=== PATIENT | male | born 1965 | race Caucasian/White ===

== ENCOUNTER 2017-07-26 06:36 | Inpatient (IN) | payer BC ==
[~2017-07-26 06:36] MED LIST: Acetaminophen 500 MG Tab PO SCH; Clindamycin Phosphate in D5W 900 MG in Premix Bag 1 BAG IV SCH; Famotidine 20 MG/2 ML SDV IVPUSH SCH; Ketorolac 30 MG/ML SDV IVPUSH SCH; Ropivacaine 49.25 ML, Ketorolac 30 MG, EPINEPHrine 0.5 MG, cloNIDine 80 MCG in Sodium C... INJECT ONE; Scopolamine 1.5 MG Transdermal Patch TRDERM SCH; oxyCODONE ER 20 MG TAB.ER PO SCH
[2017-07-26] MEDS: Lactated Ringers 1,000 ML IV SCH ×2 (07:15→17:57)
[2017-07-26] MEDS ORDERED: Midazolam 1 MG/ML 2 ML SDV ONE ×2 (07:38→08:08)
[2017-07-26] MEDS ORDERED: fentaNYL 100 MCG/2 ML SDV ONE (07:38)
--- NOTE | 2017-07-26 08:09 | PCM.PREANE ---
Preanesthetic Assessment - Anesthesia/Transfusion/Family Hx Anesthesia History: Prior Anesthesia Without Reaction Other Type of Anesthesia Reaction Comment: DENIES ANY PROBLEMS WITH ANESTHESIA Family History of Anesthesia Reaction: No Transfusion History: No Prior Transfusion(s) Additional History: Sleep apnea - uses face mask; 2-3x per week short episodes of rapid heart rate. - Review of Systems General: Other (pain with any walking activity; obesity) Pulmonary: Other (sleep apnea/CPAP/ brought own unit) Cardiovascular: Palpitations (see earlier note) Gastrointestinal: Other (GERD - using omeprazole daily) Neurological: Gait Disturbance (due to knee pain) Other: Reports: None - Physical Assessment NPO Status Date: 07/25/17 NPO Status Time: 23:00 O2 Sat by Pulse Oximetry: 97 Respiratory Rate: 16 Temperature: 98.1 F Vital Signs: Last Vital Signs Temp 98.1 F 07/26/17 07:31 Pulse 70 07/26/17 07:10 Resp 16 07/26/17 07:10 BP 146/79 H 07/26/17 07:10 Pulse Ox 97 07/26/17 07:10 Height: 6 ft Weight: 316 lb ASA Class: 3 Mental Status: Alert & Oriented x3 Thyro-Mental Finger Breadths: 3 Mouth Opening Finger Breadths: 3 ROM/Head Extension: Full Lungs: Clear to Auscultation, Normal Respiratory Effort Cardiovascular: Regular Rate, Regular Rhythm, No Murmurs - Lab Values: Laboratory Last Values Blood Type A POSITIVE 07/26/17 07:13 Antibody Screen NEGATIVE 07/26/17 07:13 - Allergies Allergies/Adverse Reactions: Allergies Allergy/AdvReac Type Severity Reaction Status Date / Time amoxicillin [From Augmentin] Allergy Diarrhea Verified 07/20/17 10:02 clavulanic acid Allergy Diarrhea Verified 07/20/17 10:02 [From Augmentin] - Blood Blood Available: Yes Product(s) Available: PRBC (T and S) - Anesthesia Plan Beta Ariadna: Metoprolol Med Last Dose Date: 07/26/17 Med Last Dose Time: 06:00 - Acknowledgements Anesthesia Type Planned: General Anesthesia (Possible due to cardio/respiratory issues), Spinal (may require airway assist due to his sleep apnea hx) Pt an Appropriate Candidate for the Planned Anesthesia: Yes Alternatives and Risks of Anesthesia Discussed w Pt/Guardian: Yes Pt/Guardian Understands and Agrees with Anesthesia Plan: Yes PreAnesthesia Questionnaire HEENT History: Reports: Allergic Rhinitis, Other (See Below) Other HEENT History: wears glasses Cardiovascular History: Reports: High Cholesterol, Hypertension Respiratory History: Reports: Sleep Apnea Other Respiratory History: uses CPAP Gastrointestinal History: Reports: GERD Genitourinary History: Reports: None Musculoskeletal History: Reports: Arthritis Neurological History: Reports: None Psychiatric History: Reports: None Endocrine/Metabolic History: Reports: Obesity/BMI 30+ Hematologic History: Reports: None Immunologic History: Reports: None Oncologic (Cancer) History: Reports: None Dermatologic History: Reports: None - Infectious Disease History Infectious Disease History: Reports: Chicken Pox - Past Surgical History Head Surgeries/Procedures: Reports: None HEENT Surgical History: Reports: Naso-Sinus Surgery, Tonsillectomy, Other (See Below) Other HEENT Surgeries/Procedures: hx sinus surgery x3 GI Surgical History: Reports: Colonoscopy - SUBSTANCE USE Smoking Status *Q: Never Smoker Tobacco Use Within Last Twelve Months: No Days Per Week of Alcohol Use: 0 Number of Drinks Per Day: 0 Total Drinks Per Week: 0 Recreational Drug Use History: No - HOME MEDS Home Medications: Home Meds Metoprolol Tartrate 50 tab PO BID 09/03/14 [History] Pantoprazole Sodium 40 mg PO DAILY PRN 09/03/14 [History] Pravastatin Sodium [Pravastatin (Pravachol)] 40 mg PO BEDTIME 09/03/14 [History] Fluticasone Propionate [Flonase] 1 puff NASBOTH ASDIRECTED PRN 09/05/14 [History ] Allopurinol [Zyloprim] 1 tab PO DAILY 03/16/16 [History] Aspirin [Low Dose Aspirin EC] 81 mg PO DAILY 07/20/17 [History] Montelukast Sodium 10 mg PO BEDTIME 07/20/17 [History] Nitroglycerin [Nitrostat] 0.4 mg SL ASDIRECTED PRN 07/20/17 [History] - CURRENT (IN HOUSE) MEDS Current Meds: Current Medications Acetaminophen (Tylenol Extra Strength) 1,000 mg PO ONARRIVE MAGALI Last Admin: 07/26/17 07:31 Dose: 1,000 mg Famotidine (Pepcid) 40 mg IVPUSH ONARRIVE MAGALI Last Admin: 07/26/17 07:20 Dose: 40 mg Clindamycin Phosphate 900 mg/ (Premix) 50 mls @ 100 mls/hr IV ONCALL MAGALI Lactated Ringer's (Ringers, Lactated) 1,000 mls @ 100 mls/hr IV ASDIRECTED [facility] Last Admin: 07/26/17 07:15 Dose: 100 mls/hr Ketorolac Tromethamine (Toradol) 30 mg IVPUSH ONARRIVE [facility] Last Admin: 07/26/17 07:31 Dose: 30 mg Oxycodone HCl (Oxycontin) 20 mg PO ONARRIVE [facility] Last Admin: 07/26/17 07:31 Dose: 20 mg Scopolamine (Transderm-Scop) 1.5 mg TRDERM ONARRIVE [facility] Last Admin: 07/26/17 07:32 Dose: 1.5 mg Tranexamic Acid (Cyklokapron) 4,000 mg IV SEECOMMENT [facility] Discontinued Medications Fentanyl (Sublimaze) Confirm Administered Dose 100 mcg .ROUTE .STK-MED ONE Stop: 07/26/17 07:39 Ropivacaine 49.25 ml/Ketorolac Tromethamine 30 mg/Epinephrine HCl 0.5 mg/ Clonidine HCl 80 mcg/ Sodium Chloride 100 mls @ 50 mls/min INJECT ONETIME ONE Stop: 07/26/17 06:01 Midazolam HCl (Versed 1 Mg/Ml) Confirm Administered Dose 4 mg .ROUTE .STK-MED ONE Stop: 07/26/17 07:39 Tranexamic Acid (Cyklokapron) Confirm Administered Dose 4,000 mg .ROUTE .STK- MED ONE Stop: 07/26/17 07:03
[2017-07-26] MEDS ORDERED: Propofol 200 MG/20 ML SDV ONE ×4 (08:15→10:18)
[2017-07-26] MEDS ORDERED: ePHEDrine 50 MG/ML SDV ONE (09:41)
[2017-07-26] MEDS ORDERED: fentaNYL 100 MCG/2 ML SDV IVPUSH PRN (10:12)
[2017-07-26] MEDS ORDERED: Aluminum Hydroxide/Magnesium Hydroxide/Simethicone Susp 30 ML Cup PO PRN (10:49)
[2017-07-26] MEDS ORDERED: diphenhydrAMINE 25 MG Cap PO PRN (10:49)
[2017-07-26] MEDS ORDERED: Ondansetron 4 MG/2 ML SDV IV PRN (10:49)
[2017-07-26] MEDS ORDERED: Morphine 4 MG/ML Syringe IVPUSH PRN (10:49)
[2017-07-26] MEDS ORDERED: Bisacodyl 10 MG Supp RECTAL PRN (10:49)
[2017-07-26] MEDS ORDERED: Fluticasone Propionate Nasal Spray 16 GM Bottle NASBOTH PRN (10:53)
[2017-07-26] MEDS ORDERED: Nitroglycerin 0.4 MG Tab.SL SL PRN (10:53)
[2017-07-26] MEDS ORDERED: Pantoprazole 40 MG Tab.CR PO PRN (10:53)
[2017-07-26] MEDS ORDERED: Ketorolac 30 MG/ML SDV IVPUSH SCH (11:00)
[2017-07-26] MEDS ORDERED: Acetaminophen 500 MG Tab PO SCH (11:00)
--- NOTE | 2017-07-26 11:01 | PCM.OPNOTE ---
- General Post-Op/Procedure Note Date of Surgery/Procedure: 07/26/17 Operative Procedure(s): L TKA Post-Op Diagnosis: DJD L knee Anesthesia Technique: Moderate Sedation, Spinal Primary Surgeon: Lisa Deshpande [employer] Spanish Teacher: Sydney Joseph in mLs: 50 Condition: Good Free Text/Narrative:: tt=74 min #[id number]
--- NOTE | 2017-07-26 11:40 | PCM.POSTAN ---
POST ANESTHESIA ASSESSMENT - MENTAL STATUS Mental Status: Alert, Oriented - RESPIRATORY Respiratory Status: Respiratory Rate WNL, Airway Patent, O2 Saturation Stable - CARDIOVASCULAR CV Status: Pulse Rate WNL, Blood Pressure Stable - GASTROINTESTINAL GI Status: No Symptoms - PAIN Pain Score: 0 - POST OP HYDRATION Hydration Status: Adequate & Stable
[2017-07-26] MEDS: Acetaminophen 500 MG Tab PO SCH ×2 (12:44→17:59)
[2017-07-26] MEDS: Ketorolac 30 MG/ML SDV IVPUSH SCH ×2 (14:08→20:28)
[2017-07-26] MEDS: oxyCODONE 5 MG Tab PO PRN (14:54)
--- NOTE | 2017-07-26 15:20 | CR ---
EXAMINATION: Left knee HISTORY: Surgery COMPARISON: None TECHNIQUE: 2 views FINDINGS/IMPRESSION: Left total knee hardware is demonstrated in stable position and alignment. Posto perative soft tissue changes noted.
[2017-07-26] MEDS: Clindamycin Phosphate in D5W 900 MG in Premix Bag 1 BAG IV SCH ×2 (17:28)
--- NOTE | 2017-07-26 19:24 | OR ---
SURGEON: Lisa Deshpande MD DATE OF PROCEDURE: 07/26/2017 PREOPERATIVE DIAGNOSIS: Degenerative joint disease, left knee, tricompartmental. POSTOPERATIVE DIAGNOSIS: Degenerative joint disease, left knee, tricompartmental. PROCEDURE: Left total knee arthroplasty using patient specific instrumentation. CIGAR MAKER: Sydney Joseph PA-C. ANESTHESIA: Spinal with sedation. ESTIMATED BLOOD LOSS: 50 mL. TOURNIQUET TIME: 74 minutes. COMPLICATIONS: None. DVT PROPHYLAXIS: PAS boot and NISHA hose to the nonoperative leg. IMPLANTS USED: Andrew NexGen femoral component size G(LPS), tibial component size 7, 10 mm all- polyethylene articular surface, and 35 mm all-polyethylene patella. INTRAOPERATIVE FINDINGS: Showed severe tricompartmental degenerative changes. He had complete eburnation of the bone along the medial femoral condyle and medial tibial plateau with a slight defect posteriorly. No significant synovitis was noted. There was evidence of osteophyte formation in all 3 compartments. BRIEF HISTORY: Diandra is a 51-year-old male, who has had complaint of progressive left knee pain. He had failed conservative treatment. Due to his lack of response to conservative treatment, I did recommend surgical intervention. Risks and goals of the procedure were discussed with the patient and were documented preoperatively. He agreed to proceed. DESCRIPTION OF PROCEDURE: The patient was properly identified and brought to the operating room. The patient was transferred from the operating room cart and placed on the operating room table. Spinal anesthesia was administered by the anesthesia team. After adequate sedation was achieved, a well-padded tourniquet was applied to the lower extremity. A Barrientos catheter was then placed. The lower extremity was then prepped in standard fashion using ChloraPrep solution. It was then sterilely draped. A time-out was performed to ensure correct site and procedure. Preoperative antibiotics were given along with one gram of tranexamic acid IV. The surgical site had been marked preoperatively. An Esmarch was used to exsanguinate the lower extremity and the tourniquet was inflated. An incision was made centered over the anterior aspect of the knee. The subcutaneous tissues were dissected down to the level of the fascia. A medial parapatellar approach was made. A partial medial release was also performed. The knee was then brought into extension and a portion of the infrapatellar fat pad was excised. The knee was then brought into flexion. The femoral patient specific cutting block was placed. This fit anatomically. The pins were then placed. The 0 degree distal femoral cutting guide was placed over the distal femur pins. The femur was then resected using an oscillating saw. The pins were then removed and were placed into the previously placed distal drill holes in the femoral condyles. Both Victoria's and the epicondylar axis were marked with electric cautery. The cutting block was then placed. This was pinned into position in a slightly lateral and externally rotated position. This was then secured. The resection guide was used to check to make sure that the anterior femoral cortex would not be notched. The anterior condylar cut was then made. No notching of the femur was noted. This was followed by the posterior condylar, posterior chamfer, and anterior chamfer cuts. The narrow reciprocating saw was then used to cut the base of the trochlear recess and score the edges. The finishing guide was then removed and the trochlear recess cuts and remaining bone cuts were finished. The notch cutting block was then placed into position and the notch cut was made without difficulty using the reciprocating saw. This was then removed. The notch block that had been cut along with a portion of the cruciate ligaments were also resected. We then turned our attention to the tibia. The posterior cruciate ligament retractor was used to bring the tibial surface anteriorly. The patient specific tibial block was then placed. This fit anatomically. It was pinned into position. The block was then removed. The 0 degree proximal tibia cutting guide was then placed over the guide pin. This was secured with a Isael clamp. The resection depth was checked using the resection guide. A proximal tibia cut was then made using an oscillating saw. Care was taken to protect the patellar tendon. The proximal tibia bone was then removed. The remainder of the medial and lateral meniscus were also excised. Care was taken to protect the popliteus tendon. The proximal tibia was then sized. The remainder of the osteophytes along the proximal tibia were also resected. The distal femur was elevated to expose the posterior knee. The posterior capsule was stripped off the distal femur using a curved osteotome. The posterior osteophytes were also excised. The posterior capsule, along with the medial and lateral gutters, were then injected with the standard, preoperatively prepared, mixture consisting of clonidine, epinephrine, ropivacaine, Toradol, and saline, unless any allergies were noted preoperatively. The femoral trial was then placed. This was followed by the tibial component with a size 10 trial polyethylene. The knee was brought into full extension. Stability to varus and valgus stress was checked in extension and in flexion. There appeared to be good range of motion and stability. The knee was then brought into full extension. The patella was everted. The patella was resected to a thickness of 15 millimeters. It was then sized. Once the appropriate size was determined, the patella was prepared by placing the patella button in a slightly superior and medial position. The patella button trial was then placed and the knee was again taken through a range of motion. There was excellent patellar tracking using the no-touch technique. Alignment was checked with a drop walker. The trial components were then removed. The knee was brought into full flexion and the tibia was prepared in a standard fashion placing the tibial plate in slight external rotation with the center of the prosthesis lined up with the medial aspect of the tibial tubercle. The wound was then copiously irrigated with Pulsavac solution to remove any bony debris. The bone ends were then suctioned dry. Cement was prepared in the usual fashion on the back table. The cement was then placed onto the proximal tibia and the tibial component was placed without difficulty. This was malleted into position. Excess cement was cleared. The femoral component was cemented in a similar manner. A trial polyethylene was then placed and the knee was brought into full extension. An axial load was applied. The patella button was then cemented into place and a patella clamp was placed to hold pressure. The cement was allowed to cure. The wound was again copiously irrigated with saline solution using a Pulsavac coal cutting machine operator. Following this 1 g of tranexamic acid was applied to the wound topically. After the cement had adequately hardened, the patella clamp was released. The knee was again taken through a range of motion. It was determined at this time the correct thickness of polyethylene. The trial polyethylene insert was then removed. The knee was brought into flexion and the tibial tray was suctioned dry. Any excess cement was cleared from the tibial and femoral components. The knee was then brought into approximately 45 degrees of flexion. The tourniquet was deflated. No excess bleeding was noted from the posterior aspect of the knee. An additional gram of tranexamic acid was given IV. The previously determined sized polyethylene insert was then placed and locked into position without difficulty. The knee was again taken through a range of motion with no change in stability, either in flexion or extension. The fascia layer was closed with No. 1 Vicryl. The subcutaneous tissue was closed with 2-0 Vicryl and the skin was closed with a afshan. Xeroform gauze was placed over the wound and a bulky dressing was applied. The patient was then awakened from the anesthetic and transferred back to the operating cart. The patient was brought to recovery room in stable condition. All needle and sponge counts were correct. FREDRICK / JANICE /[id number]
[2017-07-26] MEDS: Pravastatin 40 MG Tab PO SCH (20:34)
[2017-07-26] MEDS: Docusate Sodium 100 MG Cap PO SCH (20:34)
[2017-07-26] MEDS: Metoprolol Succinate 50 MG Tab.ER PO SCH (20:34)
[2017-07-26] MEDS: oxyCODONE ER 20 MG TAB.ER PO SCH (20:35)
[2017-07-26] MEDS: Montelukast 10 MG Tab PO SCH (20:35)
[2017-07-26] MEDS ORDERED: Temazepam 15 MG Cap PO ONE (22:10)
[2017-07-27] MEDS: Acetaminophen 500 MG Tab PO SCH ×5 (00:11→23:36)
[2017-07-27] MEDS: Ketorolac 30 MG/ML SDV IVPUSH SCH (01:35)
[2017-07-27] MEDS: Clindamycin Phosphate in D5W 900 MG in Premix Bag 1 BAG IV SCH ×2 (01:35)
[2017-07-27] MEDS: Lactated Ringers 1,000 ML IV SCH (05:03)
[2017-07-27] MEDS ORDERED: Sodium Chloride 0.9% 2.5 ML Syringe FLUSH PRN (07:56)
[2017-07-27] MEDS ORDERED: Sodium Chloride 0.9% 10 ML Syringe FLUSH PRN (07:56)
--- NOTE | 2017-07-27 08:14 | PCM48HPAN ---
Post Anesthesia Note - EVALUATION WITHIN 48HRS OF ANESTHETIC Vital Signs in Normal Range: Yes Patient Participated in Evaluation: Yes Respiratory Function Stable: Yes Airway Patent: Yes Cardiovascular Function Stable: Yes Hydration Status Stable: Yes Pain Control Satisfactory: Yes Nausea and Vomiting Control Satisfactory: Yes Mental Status Recovered: Yes - COMMENTS/OBSERVATIONS Free Text/Narrative:: Pt complains of pain with knee straight. Helped pt to get up to the chair and he states that it feels better sitting with knee bent. He states he did have some nausea, but it was relieved with medication. No apparent anesthesia complications.
--- NOTE | 2017-07-27 08:33 | PCM.SURGPN ---
- General Info Date of Service: 07/27/17 Date of Surgery/Procedure: 07/26/17 Functional Status: Reports: Pain Controlled, Tolerating Diet, Ambulating, Urinating - Review of Systems General: Reports: No Symptoms HEENT: Reports: No Symptoms Pulmonary: Reports: No Symptoms Cardiovascular: Reports: No Symptoms Gastrointestinal: Reports: No Symptoms Musculoskeletal: Reports: Leg Pain, Joint Pain, Joint Swelling Neurological: Reports: No Symptoms Psychiatric: Reports: No Symptoms - Patient Data Vitals - Most Recent: Last Vital Signs Temp 36.7 C 07/27/17 04:00 Pulse 70 07/27/17 04:00 Resp 18 07/27/17 04:00 BP 133/70 07/27/17 04:00 Pulse Ox 97 07/27/17 04:00 Weight - Most Recent: 143.335 kg I&O - Last 24 Hours: Intake & Output 07/26/17 07/27/17 07/27/17 22:59 06:59 14:59 Intake Total 1077 1550 Output Total 250 850 Balance 827 700 Lab Results Last 24 Hrs: Laboratory Results - last 24 hr 07/27/17 Range/Units 07:30 Hgb 14.6 (13.0-17.0) g/dL Hct 43.4 (38.0-50.0) % Med Orders - Current: Current Medications Acetaminophen (Tylenol Extra Strength) 1,000 mg PO Q6H [facility] Last Admin: 07/27/17 05:03 Dose: 1,000 mg Al Hydroxide/Mg Hydroxide (Mag-Al Plus) 30 ml PO Q4H PRN PRN Reason: indigestion Allopurinol (Zyloprim) 100 mg PO DAILY [facility] Aspirin (Aspirin) 325 mg PO BID [facility] Bisacodyl (Dulcolax) 10 mg RECTAL DAILY PRN PRN Reason: Constipation Celecoxib (Celebrex) 200 mg PO DAILY [facility] Diphenhydramine HCl (Benadryl) 25 - 50 mg PO Q6H PRN PRN Reason: Itching Docusate Sodium (Colace) 100 mg PO BID [facility] Last Admin: 07/26/17 20:34 Dose: 100 mg Fluticasone Propionate (Flonase) 0 gm NASBOTH ASDIRECTED PRN PRN Reason: Allergies Lactated Ringer's (Ringers, Lactated) 1,000 mls @ 100 mls/hr IV ASDIRECTED [facility] Last Admin: 07/27/17 05:03 Dose: 100 mls/hr Losartan Potassium (Cozaar) 50 mg PO DAILY [facility] Metoprolol Succinate (Toprol Xl) 50 mg PO BID [facility] Last Admin: 07/26/17 20:34 Dose: 50 mg Montelukast Sodium (Singulair) 10 mg PO BEDTIME [facility] Last Admin: 07/26/17 20:35 Dose: 10 mg Morphine Sulfate (Morphine) 1 - 3 mg IVPUSH Q3H PRN PRN Reason: Pain Nitroglycerin (Nitrostat) 0.4 mg SL ASDIRECTED PRN PRN Reason: Chest Pain Ondansetron HCl (Zofran) 4 mg IV Q6HR PRN PRN Reason: NAUSEA/VOMITING Last Admin: 07/27/17 05:12 Dose: 4 mg Oxycodone HCl (Oxycodone) 5 - 10 mg PO Q4H PRN PRN Reason: Pain Last Admin: 07/26/17 14:54 Dose: 10 mg Oxycodone HCl (Oxycontin) 20 mg PO Q12HR [facility] Last Admin: 07/26/17 20:35 Dose: 20 mg Pantoprazole Sodium (Protonix) 40 mg PO DAILY PRN PRN Reason: Heartburn Pravastatin Sodium (Pravachol) 40 mg PO BEDTIME [facility] Last Admin: 07/26/17 20:34 Dose: 40 mg Scopolamine (Transderm-Scop) 1.5 mg TRDERM ONARRIVE [facility] Last Admin: 07/26/17 07:32 Dose: 1.5 mg Sodium Chloride (Saline Flush) 10 ml FLUSH ASDIRECTED PRN PRN Reason: Keep Vein Open Sodium Chloride (Saline Flush) 2.5 ml FLUSH ASDIRECTED PRN PRN Reason: Keep Vein Open Discontinued Medications Acetaminophen (Tylenol Extra Strength) 1,000 mg PO ONARRIVE [facility] Last Admin: 07/26/17 07:31 Dose: 1,000 mg Acetaminophen (Tylenol Extra Strength) 1,000 mg PO Q6H [facility] Ephedrine Sulfate (Ephedrine Sulfate) Confirm Administered Dose 50 mg .ROUTE .STK-MED ONE Stop: 07/26/17 09:42 Famotidine (Pepcid) 40 mg IVPUSH ONARRIVE [facility] Last Admin: 07/26/17 07:20 Dose: 40 mg Fentanyl (Sublimaze) Confirm Administered Dose 100 mcg .ROUTE .STK-MED ONE Stop: 07/26/17 07:39 Fentanyl (Sublimaze) 50 mcg IVPUSH Q5M PRN PRN Reason: Pain (moderate 4-6) Stop: 07/26/17 12:00 Glycopyrrolate () Confirm Administered Dose 1 mg .ROUTE .STK-MED ONE Stop: 07/26/17 10:06 Clindamycin Phosphate 900 mg/ (Premix) 50 mls @ 100 mls/hr IV ONCALL [facility] Last Admin: 07/26/17 08:25 Dose: 100 mls/hr Ropivacaine 49.25 ml/Ketorolac Tromethamine 30 mg/Epinephrine HCl 0.5 mg/ Clonidine HCl 80 mcg/ Sodium Chloride 100 mls @ 50 mls/min INJECT ONETIME ONE Stop: 07/26/17 06:01 Last Admin: 07/26/17 21:06 Dose: Not Given Clindamycin Phosphate 900 mg/ (Premix) 50 mls @ 100 mls/hr IV Q8H [facility] Stop: 07/27/17 01:59 Last Admin: 07/27/17 01:35 Dose: 100 mls/hr Ketorolac Tromethamine (Toradol) 30 mg IVPUSH ONARRIVE [facility] Last Admin: 07/26/17 07:31 Dose: 30 mg Ketorolac Tromethamine (Toradol) 30 mg IVPUSH Q6H [facility] Stop: 07/27/17 09:00 Last Admin: 07/27/17 00:47 Dose: Not Given Ketorolac Tromethamine (Toradol) 30 mg IVPUSH Q6H [facility] Stop: 07/27/17 02:01 Last Admin: 07/27/17 01:35 Dose: 30 mg Midazolam HCl (Versed 1 Mg/Ml) Confirm Administered Dose 4 mg .ROUTE .STK-MED ONE Stop: 07/26/17 07:39 Midazolam HCl (Versed 1 Mg/Ml) Confirm Administered Dose 2 mg .ROUTE .STK-MED ONE Stop: 07/26/17 08:09 Oxycodone HCl (Oxycontin) 20 mg PO ONARRIVE [facility] Last Admin: 07/26/17 07:31 Dose: 20 mg Propofol (Diprivan 20 Ml) Confirm Administered Dose 200 mg .ROUTE .STK-MED ONE Stop: 07/26/17 08:16 Propofol (Diprivan 20 Ml) Confirm Administered Dose 200 mg .ROUTE .STK-MED ONE Stop: 07/26/17 08:54 Propofol (Diprivan 20 Ml) Confirm Administered Dose 200 mg .ROUTE .STK-MED ONE Stop: 07/26/17 09:54 Propofol (Diprivan 20 Ml) Confirm Administered Dose 200 mg .ROUTE .STK-MED ONE Stop: 07/26/17 10:19 Temazepam (Restoril) 15 mg PO ONETIME ONE Stop: 07/26/17 22:11 Last Admin: 07/27/17 00:11 Dose: 15 mg Tranexamic Acid (Cyklokapron) 4,000 mg IV SEECOMMENT MAG[facility] Tranexamic Acid (Cyklokapron) Confirm Administered Dose 4,000 mg .ROUTE .STK- MED ONE Stop: 07/26/17 07:03 - Exam Wound/Incisions: Dressing Dry and Intact General: Alert, Oriented HEENT: Pupils Reactive Neck: Trachea Midline Lungs: Normal Respiratory Effort Cardiovascular: Regular Rate Extremities: Other (Left anterior tibialis, extensor hallucis longus and gastrocnemius strength +5/5 bilaterally. Sensation intact. Dorsalis pedis and posterior tibial pulses +2 bilaterally. ) Neurological: No New Focal Deficit Psy/Mental Status: Alert, Normal Affect, Normal Mood - Problem List Review Problem List Initiated/Reviewed/Updated: Yes - My Orders Last 24 Hours: Active Orders 24 hr Category Date Time Status Patient Status [ADT] Routine ADT 07/26/17 08:46 Active Activity as Tolerated [RC] .Routine Care 07/26/17 10:49 Active Intake and Output [RC] Q12H Care 07/26/17 10:49 Active Neurovascular Check [RC] Q2HR Care 07/26/17 10:49 Active Notify Provider Vital Signs [RC] ASDIRECTED Care 07/26/17 10:49 Active RT Incentive Spirometry [RC] ASDIRECTED Care 07/26/17 10:49 Active Remove Barrientos Catheter [Urinary Catheter Removal] [RC] Care 07/27/17 07:56 Active Per Unit Routine Vital Signs [RC] Q4H Care 07/26/17 10:49 Active PT Evaluation and Treatment [CONS] Routine Cons 07/26/17 10:48 Active HEMOGLOBIN/HEMATOCRIT,HH [HEME] DAILY Lab 07/28/17 07:00 Ordered HEMOGLOBIN/HEMATOCRIT,HH [HEME] DAILY Lab 07/29/17 07:00 Ordered Acetaminophen [Tylenol Extra Strength] Med 07/26/17 12:00 Active 1,000 mg PO Q6H Allopurinol [Zyloprim] Med 07/27/17 09:00 Active 100 mg PO DAILY Alum Hydrox/Mag Hydrox/Simeth [Mag-Al Plus] Med 07/26/17 10:49 Active 30 ml PO Q4H PRN Aspirin Med 07/27/17 09:00 Active 325 mg PO BID Bisacodyl [Dulcolax] Med 07/26/17 10:49 Active 10 mg RECTAL DAILY PRN Celecoxib [CeleBREX] Med 07/27/17 09:00 Active 200 mg PO DAILY Docusate Sodium [Colace] Med 07/26/17 21:00 Active 100 mg PO BID Fluticasone Propionate [Flonase] Med 07/26/17 10:53 Active 0 gm NASBOTH ASDIRECTED PRN Losartan [Cozaar] Med 07/27/17 09:00 Active 50 mg PO DAILY Metoprolol Succinate [Toprol XL] Med 07/26/17 21:00 Active 50 mg PO BID Montelukast [Singulair] Med 07/26/17 21:00 Active 10 mg PO BEDTIME Morphine Med 07/26/17 10:49 Active 1 - 3 mg IVPUSH Q3H PRN Nitroglycerin [Nitrostat] Med 07/26/17 10:53 Active 0.4 mg SL ASDIRECTED PRN Ondansetron [Zofran] Med 07/26/17 10:49 Active 4 mg IV Q6HR PRN Pantoprazole [ProTONIX] Med 07/26/17 10:53 Active 40 mg PO DAILY PRN Pravastatin [Pravachol] Med 07/26/17 21:00 Active 40 mg PO BEDTIME Sodium Chloride 0.9% [Saline Flush] Med 07/27/17 07:56 Active 10 ml FLUSH ASDIRECTED PRN Sodium Chloride 0.9% [Saline Flush] Med 07/27/17 07:56 Active 2.5 ml FLUSH ASDIRECTED PRN diphenhydrAMINE [Benadryl] Med 07/26/17 10:49 Active 25 - 50 mg PO Q6H PRN oxyCODONE Med 07/26/17 10:49 Active 5 - 10 mg PO Q4H PRN oxyCODONE ER [OxyCONTIN] Med 07/26/17 21:00 Active 20 mg PO Q12HR Convert IV to Saline Lock [OM.PC] Routine Oth 07/27/17 07:56 Ordered Ice Therapy [OM.PC] Routine Oth 07/26/17 10:49 Ordered Medication Orders Acetaminophen (Tylenol Extra Strength) 1,000 mg PO Q6H [facility] Last Admin: 07/27/17 05:03 Dose: 1,000 mg Admin: 07/27/17 00:11 Dose: 1,000 mg Admin: 07/26/17 17:59 Dose: 1,000 mg Admin: 07/26/17 12:44 Dose: 1,000 mg Al Hydroxide/Mg Hydroxide (Mag-Al Plus) 30 ml PO Q4H PRN PRN Reason: indigestion Allopurinol (Zyloprim) 100 mg PO DAILY [facility] Aspirin (Aspirin) 325 mg PO BID [facility] Bisacodyl (Dulcolax) 10 mg RECTAL DAILY PRN PRN Reason: Constipation Celecoxib (Celebrex) 200 mg PO DAILY [facility] Diphenhydramine HCl (Benadryl) 25 - 50 mg PO Q6H PRN PRN Reason: Itching Docusate Sodium (Colace) 100 mg PO BID [facility] Last Admin: 07/26/17 20:34 Dose: 100 mg Fluticasone Propionate (Flonase) 0 gm NASBOTH ASDIRECTED PRN PRN Reason: Allergies Lactated Ringer's (Ringers, Lactated) 1,000 mls @ 100 mls/hr IV ASDIRECTED [facility] Last Admin: 07/27/17 05:03 Dose: 100 mls/hr Infusion: 07/27/17 03:57 Dose: 100 mls/hr Admin: 07/26/17 17:57 Dose: 100 mls/hr Infusion: 07/26/17 17:15 Dose: 100 mls/hr Admin: 07/26/17 07:15 Dose: 100 mls/hr Losartan Potassium (Cozaar) 50 mg PO DAILY [facility] Metoprolol Succinate (Toprol Xl) 50 mg PO BID [facility] Last Admin: 07/26/17 20:34 Dose: 50 mg Montelukast Sodium (Singulair) 10 mg PO BEDTIME [facility] Last Admin: 07/26/17 20:35 Dose: 10 mg Morphine Sulfate (Morphine) 1 - 3 mg IVPUSH Q3H PRN PRN Reason: Pain Nitroglycerin (Nitrostat) 0.4 mg SL ASDIRECTED PRN PRN Reason: Chest Pain Ondansetron HCl (Zofran) 4 mg IV Q6HR PRN PRN Reason: NAUSEA/VOMITING Last Admin: 07/27/17 05:12 Dose: 4 mg Oxycodone HCl (Oxycodone) 5 - 10 mg PO Q4H PRN PRN Reason: Pain Last Admin: 07/26/17 14:54 Dose: 10 mg Oxycodone HCl (Oxycontin) 20 mg PO Q12HR [facility] Last Admin: 07/26/17 20:35 Dose: 20 mg Pantoprazole Sodium (Protonix) 40 mg PO DAILY PRN PRN Reason: Heartburn Pravastatin Sodium (Pravachol) 40 mg PO BEDTIME [facility] Last Admin: 07/26/17 20:34 Dose: 40 mg Scopolamine (Transderm-Scop) 1.5 mg TRDERM ONARRIVE [facility] Last Admin: 07/26/17 07:32 Dose: 1.5 mg Sodium Chloride (Saline Flush) 10 ml FLUSH ASDIRECTED PRN PRN Reason: Keep Vein Open Sodium Chloride (Saline Flush) 2.5 ml FLUSH ASDIRECTED PRN PRN Reason: Keep Vein Open - Assessment Assessment (Free Text/Narrative):: Patient awake in bed this AM. Pain controlled. Tolerating diet. VSS. Hgb 14.6. UO 1300 mL. No complaints today. - Plan Plan (Free Text/Narrative):: Continue PT. Continue pain management. Encourage ambulation. JOSE Barrientos and Laverne today. Being Aspirin 325 mg PO BID for DVT prophylaxis. Poss. D/C home tomorrow.
[2017-07-27] MEDS: Docusate Sodium 100 MG Cap PO SCH ×2 (08:40→20:27)
[2017-07-27] MEDS: Aspirin 325 MG Tab PO SCH ×2 (08:41→20:27)
[2017-07-27] MEDS: Celecoxib 100 MG Cap PO SCH (08:42)
[2017-07-27] MEDS: Metoprolol Succinate 50 MG Tab.ER PO SCH ×2 (08:45→20:27)
[2017-07-27] MEDS: Losartan 50 MG Tab PO SCH (08:45)
[2017-07-27] MEDS: oxyCODONE ER 20 MG TAB.ER PO SCH ×2 (08:45→20:27)
[2017-07-27] MEDS: Allopurinol 100 MG Tab PO SCH (09:08)
[2017-07-27] MEDS: oxyCODONE 5 MG Tab PO PRN ×2 (13:17→19:12)
--- NOTE | 2017-07-27 14:44 | PCM.SN ---
- Free Text/Narrative Note: Patient seen and examined. Agree with MACY Joseph note. Patient sitting up in chair. He did have some pain overnight, however states it is better now. He is progressing slowly with physical therapy. He has no other complaints today. Exam of the knee shows the dressing to be dry and intact. He has no calf tenderness. AT/EHL/gastroc 5/5. Sensation grossly intact. DP/PT pulses 2+. At this time the patient is progressing slowly with physical therapy. I recommended that he stain additional day. His hemoglobin remained stable. We will plan for possible discharge tomorrow depending on how he feels.
[2017-07-27] MEDS: Pravastatin 40 MG Tab PO SCH (20:27)
[2017-07-27] MEDS: Montelukast 10 MG Tab PO SCH (20:27)
[2017-07-28] MEDS: Acetaminophen 500 MG Tab PO SCH (06:23)
--- NOTE | 2017-07-28 07:59 | PCM.SURGPN ---
- General Info Date of Service: 07/28/17 Date of Surgery/Procedure: 07/26/17 POD#: 2 Functional Status: Reports: Pain Controlled, Tolerating Diet, Ambulating, Urinating - Review of Systems General: Reports: No Symptoms HEENT: Reports: No Symptoms Pulmonary: Reports: No Symptoms Cardiovascular: Reports: No Symptoms Gastrointestinal: Reports: No Symptoms Genitourinary: Reports: No Symptoms Musculoskeletal: Reports: Leg Pain, Joint Pain, Joint Swelling Neurological: Reports: No Symptoms Psychiatric: Reports: No Symptoms - Patient Data Vitals - Most Recent: Last Vital Signs Temp 36.2 C 07/28/17 04:00 Pulse 69 07/28/17 04:00 Resp 16 07/28/17 04:00 BP 127/67 07/28/17 04:00 Pulse Ox 96 07/28/17 04:00 Weight - Most Recent: 143.335 kg I&O - Last 24 Hours: Intake & Output 07/27/17 07/28/17 07/28/17 22:59 06:59 14:59 Intake Total 1313 1150 Output Total 740 600 Balance 573 550 Lab Results Last 24 Hrs: Laboratory Results - last 24 hr 07/27/17 07/28/17 Range/Units 07:30 07:15 Hgb 14.6 14.2 (13.0-17.0) g/dL Hct 43.4 41.3 (38.0-50.0) % Med Orders - Current: Current Medications Acetaminophen (Tylenol Extra Strength) 1,000 mg PO Q6H [facility] Last Admin: 07/28/17 06:23 Dose: 1,000 mg Al Hydroxide/Mg Hydroxide (Mag-Al Plus) 30 ml PO Q4H PRN PRN Reason: indigestion Allopurinol (Zyloprim) 100 mg PO DAILY [facility] Last Admin: 07/27/17 09:08 Dose: 100 mg Aspirin (Aspirin) 325 mg PO BID [facility] Last Admin: 07/27/17 20:27 Dose: 325 mg Bisacodyl (Dulcolax) 10 mg RECTAL DAILY PRN PRN Reason: Constipation Celecoxib (Celebrex) 200 mg PO DAILY [facility] Last Admin: 07/27/17 08:42 Dose: 200 mg Diphenhydramine HCl (Benadryl) 25 - 50 mg PO Q6H PRN PRN Reason: Itching Docusate Sodium (Colace) 100 mg PO BID [facility] Last Admin: 07/27/17 20:27 Dose: 100 mg Fluticasone Propionate (Flonase) 0 gm NASBOTH ASDIRECTED PRN PRN Reason: Allergies Losartan Potassium (Cozaar) 50 mg PO DAILY [facility] Last Admin: 07/27/17 08:45 Dose: 50 mg Metoprolol Succinate (Toprol Xl) 50 mg PO BID [facility] Last Admin: 07/27/17 20:27 Dose: 50 mg Montelukast Sodium (Singulair) 10 mg PO BEDTIME [facility] Last Admin: 07/27/17 20:27 Dose: 10 mg Morphine Sulfate (Morphine) 1 - 3 mg IVPUSH Q3H PRN PRN Reason: Pain Nitroglycerin (Nitrostat) 0.4 mg SL ASDIRECTED PRN PRN Reason: Chest Pain Ondansetron HCl (Zofran) 4 mg IV Q6HR PRN PRN Reason: NAUSEA/VOMITING Last Admin: 07/27/17 05:12 Dose: 4 mg Oxycodone HCl (Oxycodone) 5 - 10 mg PO Q4H PRN PRN Reason: Pain Last Admin: 07/27/17 19:12 Dose: 10 mg Oxycodone HCl (Oxycontin) 20 mg PO Q12HR [facility] Last Admin: 07/27/17 20:27 Dose: 20 mg Pantoprazole Sodium (Protonix) 40 mg PO DAILY PRN PRN Reason: Heartburn Pravastatin Sodium (Pravachol) 40 mg PO BEDTIME [facility] Last Admin: 07/27/17 20:27 Dose: 40 mg Scopolamine (Transderm-Scop) 1.5 mg TRDERM ONARRIVE [facility] Last Admin: 07/26/17 07:32 Dose: 1.5 mg Sodium Chloride (Saline Flush) 10 ml FLUSH ASDIRECTED PRN PRN Reason: Keep Vein Open Sodium Chloride (Saline Flush) 2.5 ml FLUSH ASDIRECTED PRN PRN Reason: Keep Vein Open Discontinued Medications Acetaminophen (Tylenol Extra Strength) 1,000 mg PO ONARRIVE [facility] Last Admin: 07/26/17 07:31 Dose: 1,000 mg Acetaminophen (Tylenol Extra Strength) 1,000 mg PO Q6H [facility] Ephedrine Sulfate (Ephedrine Sulfate) Confirm Administered Dose 50 mg .ROUTE .STK-MED ONE Stop: 07/26/17 09:42 Famotidine (Pepcid) 40 mg IVPUSH ONARRIVE [facility] Last Admin: 07/26/17 07:20 Dose: 40 mg Fentanyl (Sublimaze) Confirm Administered Dose 100 mcg .ROUTE .STK-MED ONE Stop: 07/26/17 07:39 Fentanyl (Sublimaze) 50 mcg IVPUSH Q5M PRN PRN Reason: Pain (moderate 4-6) Stop: 07/26/17 12:00 Glycopyrrolate () Confirm Administered Dose 1 mg .ROUTE .STK-MED ONE Stop: 07/26/17 10:06 Clindamycin Phosphate 900 mg/ (Premix) 50 mls @ 100 mls/hr IV ONCALL [facility] Last Admin: 07/26/17 08:25 Dose: 100 mls/hr Ropivacaine 49.25 ml/Ketorolac Tromethamine 30 mg/Epinephrine HCl 0.5 mg/ Clonidine HCl 80 mcg/ Sodium Chloride 100 mls @ 50 mls/min INJECT ONETIME ONE Stop: 07/26/17 06:01 Last Admin: 07/26/17 21:06 Dose: Not Given Lactated Ringer's (Ringers, Lactated) 1,000 mls @ 100 mls/hr IV ASDIRECTED [facility] Last Admin: 07/27/17 05:03 Dose: 100 mls/hr Clindamycin Phosphate 900 mg/ (Premix) 50 mls @ 100 mls/hr IV Q8H [facility] Stop: 07/27/17 01:59 Last Admin: 07/27/17 01:35 Dose: 100 mls/hr Ketorolac Tromethamine (Toradol) 30 mg IVPUSH ONARRIVE [facility] Last Admin: 07/26/17 07:31 Dose: 30 mg Ketorolac Tromethamine (Toradol) 30 mg IVPUSH Q6H [facility] Stop: 07/27/17 09:00 Last Admin: 07/27/17 00:47 Dose: Not Given Ketorolac Tromethamine (Toradol) 30 mg IVPUSH Q6H [facility] Stop: 07/27/17 02:01 Last Admin: 07/27/17 01:35 Dose: 30 mg Midazolam HCl (Versed 1 Mg/Ml) Confirm Administered Dose 4 mg .ROUTE .STK-MED ONE Stop: 07/26/17 07:39 Midazolam HCl (Versed 1 Mg/Ml) Confirm Administered Dose 2 mg .ROUTE .STK-MED ONE Stop: 07/26/17 08:09 Oxycodone HCl (Oxycontin) 20 mg PO ONARRIVE [facility] Last Admin: 07/26/17 07:31 Dose: 20 mg Propofol (Diprivan 20 Ml) Confirm Administered Dose 200 mg .ROUTE .STK-MED ONE Stop: 07/26/17 08:16 Propofol (Diprivan 20 Ml) Confirm Administered Dose 200 mg .ROUTE .STK-MED ONE Stop: 07/26/17 08:54 Propofol (Diprivan 20 Ml) Confirm Administered Dose 200 mg .ROUTE .STK-MED ONE Stop: 07/26/17 09:54 Propofol (Diprivan 20 Ml) Confirm Administered Dose 200 mg .ROUTE .STK-MED ONE Stop: 07/26/17 10:19 Temazepam (Restoril) 15 mg PO ONETIME ONE Stop: 07/26/17 22:11 Last Admin: 07/27/17 00:11 Dose: 15 mg Tranexamic Acid (Cyklokapron) 4,000 mg IV SEECOMMENT [facility] Tranexamic Acid (Cyklokapron) Confirm Administered Dose 4,000 mg .ROUTE .STK- MED ONE Stop: 07/26/17 07:03 - Exam Wound/Incisions: Dressing Dry and Intact (Dressing changed today.) General: Alert, Oriented HEENT: Pupils Equal, Pupils Reactive Neck: Trachea Midline Lungs: Normal Respiratory Effort Cardiovascular: Regular Rate Extremities: Other Neurological: No New Focal Deficit Psy/Mental Status: Alert, Normal Affect, Normal Mood - Problem List Review Problem List Initiated/Reviewed/Updated: Yes - My Orders Last 24 Hours: Active Orders 24 hr Category Date Time Status HEMOGLOBIN/HEMATOCRIT,HH [HEME] DAILY Lab 07/29/17 07:00 Ordered Allopurinol [Zyloprim] Med 07/27/17 09:00 Active 100 mg PO DAILY Aspirin Med 07/27/17 09:00 Active 325 mg PO BID Celecoxib [CeleBREX] Med 07/27/17 09:00 Active 200 mg PO DAILY Losartan [Cozaar] Med 07/27/17 09:00 Active 50 mg PO DAILY Sodium Chloride 0.9% [Saline Flush] Med 07/27/17 07:56 Active 10 ml FLUSH ASDIRECTED PRN Sodium Chloride 0.9% [Saline Flush] Med 07/27/17 07:56 Active 2.5 ml FLUSH ASDIRECTED PRN Convert IV to Saline Lock [OM.PC] Routine Oth 07/27/17 07:56 Ordered Medication Orders Acetaminophen (Tylenol Extra Strength) 1,000 mg PO Q6H [facility] Last Admin: 07/28/17 06:23 Dose: 1,000 mg Admin: 07/27/17 23:36 Dose: 1,000 mg Admin: 07/27/17 17:56 Dose: 1,000 mg Admin: 07/27/17 12:08 Dose: 1,000 mg Admin: 07/27/17 05:03 Dose: 1,000 mg Admin: 07/27/17 00:11 Dose: 1,000 mg Admin: 07/26/17 17:59 Dose: 1,000 mg Admin: 07/26/17 12:44 Dose: 1,000 mg Al Hydroxide/Mg Hydroxide (Mag-Al Plus) 30 ml PO Q4H PRN PRN Reason: indigestion Allopurinol (Zyloprim) 100 mg PO DAILY [facility] Last Admin: 07/27/17 09:08 Dose: 100 mg Aspirin (Aspirin) 325 mg PO BID [facility] Last Admin: 07/27/17 20:27 Dose: 325 mg Admin: 07/27/17 08:41 Dose: 325 mg Bisacodyl (Dulcolax) 10 mg RECTAL DAILY PRN PRN Reason: Constipation Celecoxib (Celebrex) 200 mg PO DAILY [facility] Last Admin: 07/27/17 08:42 Dose: 200 mg Diphenhydramine HCl (Benadryl) 25 - 50 mg PO Q6H PRN PRN Reason: Itching Docusate Sodium (Colace) 100 mg PO BID [facility] Last Admin: 07/27/17 20:27 Dose: 100 mg Admin: 07/27/17 08:40 Dose: 100 mg Admin: 07/26/17 20:34 Dose: 100 mg Fluticasone Propionate (Flonase) 0 gm NASBOTH ASDIRECTED PRN PRN Reason: Allergies Losartan Potassium (Cozaar) 50 mg PO DAILY [facility] Last Admin: 07/27/17 08:45 Dose: 50 mg Metoprolol Succinate (Toprol Xl) 50 mg PO BID [facility] Last Admin: 07/27/17 20:27 Dose: 50 mg Admin: 07/27/17 08:45 Dose: 50 mg Admin: 07/26/17 20:34 Dose: 50 mg Montelukast Sodium (Singulair) 10 mg PO BEDTIME [facility] Last Admin: 07/27/17 20:27 Dose: 10 mg Admin: 07/26/17 20:35 Dose: 10 mg Morphine Sulfate (Morphine) 1 - 3 mg IVPUSH Q3H PRN PRN Reason: Pain Nitroglycerin (Nitrostat) 0.4 mg SL ASDIRECTED PRN PRN Reason: Chest Pain Ondansetron HCl (Zofran) 4 mg IV Q6HR PRN PRN Reason: NAUSEA/VOMITING Last Admin: 07/27/17 05:12 Dose: 4 mg Oxycodone HCl (Oxycodone) 5 - 10 mg PO Q4H PRN PRN Reason: Pain Last Admin: 07/27/17 19:12 Dose: 10 mg Admin: 07/27/17 13:17 Dose: 10 mg Admin: 07/26/17 14:54 Dose: 10 mg Oxycodone HCl (Oxycontin) 20 mg PO Q12HR [facility] Last Admin: 07/27/17 20:27 Dose: 20 mg Admin: 07/27/17 08:45 Dose: 20 mg Admin: 07/26/17 20:35 Dose: 20 mg Pantoprazole Sodium (Protonix) 40 mg PO DAILY PRN PRN Reason: Heartburn Pravastatin Sodium (Pravachol) 40 mg PO BEDTIME [facility] Last Admin: 07/27/17 20:27 Dose: 40 mg Admin: 07/26/17 20:34 Dose: 40 mg Scopolamine (Transderm-Scop) 1.5 mg TRDERM ONARRIVE [facility] Last Admin: 07/26/17 07:32 Dose: 1.5 mg Sodium Chloride (Saline Flush) 10 ml FLUSH ASDIRECTED PRN PRN Reason: Keep Vein Open Sodium Chloride (Saline Flush) 2.5 ml FLUSH ASDIRECTED PRN PRN Reason: Keep Vein Open - Assessment Assessment (Free Text/Narrative):: Patient up to chair this AM. Pain well controlled. Tolerating diet. No complaints today. Hgb 14.2. UO 1340 mL. VSS. - Plan Plan (Free Text/Narrative):: Continue pain management via PO pain meds. Continue PT. Encourage ambulation. D/C home this afternoon.
[2017-07-28] MEDS: Aspirin 325 MG Tab PO SCH (08:37)
[2017-07-28] MEDS: Docusate Sodium 100 MG Cap PO SCH (08:37)
[2017-07-28] MEDS: Allopurinol 100 MG Tab PO SCH (08:38)
[2017-07-28] MEDS: Celecoxib 100 MG Cap PO SCH (08:38)
[2017-07-28] MEDS: Losartan 50 MG Tab PO SCH (08:39)
[2017-07-28] MEDS: Metoprolol Succinate 50 MG Tab.ER PO SCH (08:40)
[2017-07-28] MEDS: oxyCODONE ER 20 MG TAB.ER PO SCH (08:41)
[2017-07-28 09:05] VITALS: BP 125/55
[2017-07-28] MEDS: oxyCODONE 5 MG Tab PO PRN (10:24)
--- NOTE | 2017-07-29 08:19 | PCM.SN ---
- Free Text/Narrative Note: Discharge summary Dressing changed prior to discharge. See discharge plan for complete list of discharge medications and instructions. Dictation #: [id number]
--- NOTE | 2017-07-30 04:02 | DISCH ---
DATE OF DISCHARGE: 07/28/2017 PRIMARY CARE PHYSICIAN: Abdirizak PCP ADMITTING DIAGNOSIS: Degenerative joint disease, left knee, tricompartmental. OTHER MEDICAL DIAGNOSES: 1. Hypertension. 2. Hypercholesterolemia. 3. Obstructive sleep apnea. DISCHARGE DIAGNOSES: 1. Status post left total knee arthroplasty. 2. Hypertension. 3. Hypercholesterolemia. 4. Obstructive sleep apnea. BRIEF HISTORY: Diandra is a 51-year-old male who has had complaint of progressive left knee pain. He has failed conservative treatment. Due to his lack of response to conservative treatment, surgical intervention was recommended at that time. Operation is a left total knee arthroplasty. HOSPITAL COURSE: Pain was controlled via a combination of IV and p.o. pain medications. He was given 2 doses of clindamycin postoperatively for 24 hours antibiotic coverage. The patient was followed by Physical Therapy during his hospital stay. Upon discharge, vital signs were stable, and the patient was afebrile. Hemoglobin on the day of discharge was 14.2. Aspirin 325 mg was started on postop day #1 for DVT prophylaxis. Pain is currently controlled with oral pain medications only. He is tolerating oral intake. He is ambulating with wheeled walker. He feels comfortable with discharge to home today. DISCHARGE MEDICATIONS: 1. OxyContin 20 mg. 2. Tylenol 500 mg. 3. Aspirin 325 mg. 4. Celebrex 200 mg. 5. Colace 100 mg. 6. Oxycodone 5 mg. DISCHARGE INSTRUCTIONS: 1. The patient will follow up in the clinic on August 06, 2017. This appointment is made for the patient. 2. Outpatient physical therapy 2 to 3 times per week for 4 to 6 weeks. 3. [facility] to the left knee. 4. NISHA hose to the left lower extremity, on in the morning and off in the evening. For a complete medication reconciliation and discharge instructions, please refer to the patient's EHR. If the patient has questions or concerns prior to followup appointment, he may call the clinic. SALVATORE CAMACHO /[id number]
== END 2017-07-28 11:30 | disposition home or self-care (01) | DRG 302 ==
LOC: MW.MS 06:36
PROVIDERS: ADMIT Orthopaedic Surgery; ATTEND Orthopaedic Surgery
PROC: 0SRD0J9 Replacement of Left Knee Joint with Synthetic Substitute, Cemented, Open Approach (ICD-10-PCS; principal; 2017-07-26)
DX: M17.12 Unilateral primary osteoarthritis, left knee (principal)
CPT/HCPCS: 01402; 36415; 73560-26-LT; 73560-LT; 85014; 85018; 86850; 86900; 86901; 88305; 88311; 97110-GP; 97116-GP; 97161-GP; A9270-GY; C1713; C1776; J0171; J0735; J1885; J2250; J2405; J2704; J2795; J3010; J7050; J7120

== ENCOUNTER 2017-10-05 10:45 | Day surgery (SDC) | payer BC ==
[~2017-10-05 10:45] MED LIST changes: -Acetaminophen 500 MG Tab PO SCH; -Clindamycin Phosphate in D5W 900 MG in Premix Bag 1 BAG IV SCH; -Famotidine 20 MG/2 ML SDV IVPUSH SCH; -Ketorolac 30 MG/ML SDV IVPUSH SCH; +Lactated Ringers 1,000 ML IV SCH; -Ropivacaine 49.25 ML, Ketorolac 30 MG, EPINEPHrine 0.5 MG, cloNIDine 80 MCG in Sodium C... INJECT ONE; -Scopolamine 1.5 MG Transdermal Patch TRDERM SCH; -oxyCODONE ER 20 MG TAB.ER PO SCH
[2017-10-05] MEDS ORDERED: Propofol 200 MG/20 ML SDV ONE (10:58)
[2017-10-05] MEDS ORDERED: Lidocaine 2% 5 ML SDV ONE (10:59)
--- NOTE | 2017-10-05 11:24 | PCM.PREANE ---
Preanesthetic Assessment - Procedure Proposed Procedure: Colonoscopy - Anesthesia/Transfusion/Family Hx Anesthesia History: Prior Anesthesia Without Reaction Other Type of Anesthesia Reaction Comment: DENIES ANY PROBLEMS WITH ANESTHESIA Family History of Anesthesia Reaction: No Transfusion History: No Prior Transfusion(s) Intubation History: Unknown Additional History: GERD, SVT, HLD,HTN,Obesity,JESSICA on CPAP,and s/pTKA - Review of Systems General: No Symptoms, Other (morbid obesity) Pulmonary: Other (JESSICA with CPAP) Cardiovascular: Palpitations (hx SVT), Other (HTN) Gastrointestinal: Other (GERD) Neurological: Gait Disturbance (recovery from TKA end June) - Physical Assessment NPO Status Date: 10/04/17 NPO Status Time: 23:00 Height: 6 ft Weight: 320 lb ASA Class: 3 Mental Status: Alert & Oriented x3 Airway Class: Mallampati = 2 Dentition: Reports: Normal Dentition, Broken Tooth/Teeth (chipped #8 medially) Thyro-Mental Finger Breadths: 3 Mouth Opening Finger Breadths: 3 ROM/Head Extension: Full Lungs: Clear to Auscultation, Normal Respiratory Effort Cardiovascular: Regular Rate, Regular Rhythm, No Murmurs - Allergies Allergies/Adverse Reactions: Allergies Allergy/AdvReac Type Severity Reaction Status Date / Time amoxicillin [From Augmentin] Allergy Diarrhea Verified 07/20/17 10:02 clavulanic acid Allergy Diarrhea Verified 07/20/17 10:02 [From Augmentin] - Blood Blood Available: No Product(s) Available: None - Anesthesia Plan Pre-Op Medication Ordered: None - Acknowledgements Anesthesia Type Planned: MAC Pt an Appropriate Candidate for the Planned Anesthesia: Yes Alternatives and Risks of Anesthesia Discussed w Pt/Guardian: Yes Pt/Guardian Understands and Agrees with Anesthesia Plan: Yes PreAnesthesia Questionnaire HEENT History: Reports: Allergic Rhinitis, Other (See Below) Other HEENT History: wears glasses Cardiovascular History: Reports: High Cholesterol, Hypertension Respiratory History: Reports: Sleep Apnea Other Respiratory History: uses CPAP Gastrointestinal History: Reports: GERD Genitourinary History: Reports: None Musculoskeletal History: Reports: Arthritis Neurological History: Reports: None Psychiatric History: Reports: None Endocrine/Metabolic History: Reports: Obesity/BMI 30+ Hematologic History: Reports: None Immunologic History: Reports: None Oncologic (Cancer) History: Reports: None Dermatologic History: Reports: None - Infectious Disease History Infectious Disease History: Reports: Chicken Pox - Past Surgical History Head Surgeries/Procedures: Reports: None HEENT Surgical History: Reports: Naso-Sinus Surgery, Tonsillectomy, Other (See Below) Other HEENT Surgeries/Procedures: hx sinus surgery x3 GI Surgical History: Reports: Colonoscopy Musculoskeletal Surgical History: Reports: Knee Replacement Other Musculoskeletal Surgeries/Procedures:: hx left total knee arthroplasty - SUBSTANCE USE Smoking Status *Q: Never Smoker Tobacco Use Within Last Twelve Months: No Days Per Week of Alcohol Use: 0 Number of Drinks Per Day: 0 Total Drinks Per Week: 0 Recreational Drug Use History: No - HOME MEDS Home Medications: Home Meds Pravastatin Sodium [Pravastatin (Pravachol)] 40 mg PO BEDTIME 09/03/14 [History] Fluticasone Propionate [Flonase] 1 puff NASBOTH ASDIRECTED PRN 09/05/14 [History ] Allopurinol [Zyloprim] 100 mg PO DAILY 03/16/16 [History] Montelukast Sodium 10 mg PO BEDTIME 07/20/17 [History] Nitroglycerin [Nitrostat] 0.4 mg SL ASDIRECTED PRN 07/20/17 [History] Losartan [Cozaar] 50 mg PO DAILY 07/26/17 [History] Metoprolol Succinate 50 mg PO BID 07/26/17 [History] Aspirin [[place] Aspirin] 81 mg PO DAILY 09/30/17 [History] Omeprazole 40 mg PO DAILY PRN 09/30/17 [History] - CURRENT (IN HOUSE) MEDS Current Meds: Current Medications Lactated Ringer's (Ringers, Lactated) 1,000 mls @ 125 mls/hr IV ASDIRECTED MAGALI Discontinued Medications Lidocaine (Xylocaine-Mpf 2%) Confirm Administered Dose 5 ml .ROUTE .STK-MED ONE Stop: 10/05/17 11:00 Propofol (Diprivan 20 Ml) Confirm Administered Dose 400 mg .ROUTE .STK-MED ONE Stop: 10/05/17 10:59
--- NOTE | 2017-10-05 13:43 | PCM48HPAN ---
Post Anesthesia Note - EVALUATION WITHIN 48HRS OF ANESTHETIC Vital Signs in Normal Range: Yes Patient Participated in Evaluation: Yes Respiratory Function Stable: Yes Airway Patent: Yes Cardiovascular Function Stable: Yes Hydration Status Stable: Yes Pain Control Satisfactory: Yes Nausea and Vomiting Control Satisfactory: Yes Mental Status Recovered: Yes
--- NOTE | 2017-10-05 13:45 | PCM.OPNOTE ---
- General Post-Op/Procedure Note Date of Surgery/Procedure: 10/05/17 Operative Procedure(s): colonoscopy Findings: hemorrhoid Pre Op Diagnosis: BRBPR Post-Op Diagnosis: hemorrhoid Anesthesia Technique: Moderate Sedation Primary Surgeon: Petr Guardado Complications: None Condition: Good
[2017-10-05 14:19] VITALS: BP 129/77
--- NOTE | 2017-10-06 12:11 | OR ---
SURGEON: Petr Guardado MD DATE OF PROCEDURE: 10/05/2017 PREOPERATIVE DIAGNOSIS: Bright red blood per rectum. POSTOPERATIVE DIAGNOSIS: Hemorrhoid. PROCEDURE PERFORMED: Colonoscopy. PROCEDURE IN DETAIL: The patient was taken to the endoscopy room. A time out was called, patient identified, and procedure identified. Diprivan was then administrated. Patient went from awake to sleep, hearing doctor talking or door closing is normal. Perineum inspection and digital examination were then performed. A well- lubricated colonoscope was gently inserted through the rectum, advanced past the rectosigmoid junction, the descending colon, splenic flexure, transverse colon, hepatic flexure, ascending colon, arrived to the cecum. Cecum was identified as dictated in the finding. Then the scope was carefully withdrawn while attention was paid to the mucosal surface for any abnormality. Air will be sucked out during the scope withdrawal. At the rectum, retroflexed to examine any rectal diseases, fistula or hemorrhoids. Patient tolerated procedure well. There were no intraoperative complications, and Dr. Guardado was present throughout the whole procedure. FINDINGS: 1. The patient is easily sedated with COLLISION TECHNICIAN and Diprivan. The patient is soundly snoring. 2. The patient's bowel prep was average. No semi-formed stool. 3. The patient's sigmoid colon is redundant, and despite several maneuvers, cecum can only be observed at a large distance, because of the patient's size. There was no diverticulosis, polyp, mass, growth, inflammation, stricture, ulceration, bleeding, or AV malformation observed. The patient does have a large internal hemorrhoid and kind of pliable too. The patient will benefit from a repeat colonoscopy 10 years from today or if clinically indicated otherwise. AMISH / JANICE /[id number]
== END 2017-10-05 14:14 | disposition home or self-care (01) ==
LOC: MW.SDS 10:45
PROVIDERS: ATTEND Surgery
DX: K64.8 Other hemorrhoids (principal); K21.9 Gastro-esophageal reflux disease without esophagitis; E78.00 Pure hypercholesterolemia, unspecified; I10 Essential (primary) hypertension; E80.6 Other disorders of bilirubin metabolism; E66.9 Obesity, unspecified; G47.33 Obstructive sleep apnea (adult) (pediatric); Z99.89 Dependence on other enabling machines and devices; Z88.8 Allergy status to other drugs, medicaments and biological substances; Z88.1 Allergy status to other antibiotic agents; Z96.652 Presence of left artificial knee joint; Z96.651 Presence of right artificial knee joint; Z79.82 Long term (current) use of aspirin; Z79.899 Other long term (current) drug therapy; Z98.890 Other specified postprocedural states
CPT/HCPCS: 45378; J7120; 00810; J2704

== ENCOUNTER 2020-01-24 08:00 | Inpatient (IN) | payer BC ==
[~2020-01-24 08:00] MED LIST changes: +Famotidine 20 MG/2 ML SDV IVPUSH SCH; -Lactated Ringers 1,000 ML IV SCH; +Ropivacaine 49.25 ML, Ketorolac 30 MG, EPINEPHrine 0.5 MG, cloNIDine 80 MCG in Sodium C... INJECT SCH; +Scopolamine 1.5 MG Transdermal Patch TRDERM SCH
[2020-01-24] MEDS ORDERED: Ondansetron 4 MG/2 ML SDV ONE (08:55)
[2020-01-24] MEDS ORDERED: Dexamethasone 4 MG/ML 5 ML MDV ONE (08:55)
[2020-01-24] MEDS ORDERED: Lidocaine 2% 100 MG/5 ML Syringe ONE (08:55)
[2020-01-24] MEDS ORDERED: Propofol 200 MG/20 ML SDV ONE ×3 (08:55→12:56)
[2020-01-24] MEDS ORDERED: Midazolam 1 MG/ML 2 ML SDV ONE (08:56)
[2020-01-24] MEDS ORDERED: fentaNYL 100 MCG/2 ML SDV ONE (08:56)
[2020-01-24] MEDS ORDERED: ceFAZolin/Dextrose,Iso-Osmotic 2 GM/50 ML Duplex Bag IV ONE (09:01)
[2020-01-24] MEDS: Lactated Ringers 1,000 ML IV SCH ×2 (09:55→22:46)
--- NOTE | 2020-01-24 10:12 | PCM.PREANE ---
Preanesthetic Assessment - Anesthesia/Transfusion/Family Hx Anesthesia History: Prior Anesthesia Without Reaction Other Type of Anesthesia Reaction Comment: DENIES ANY PROBLEMS WITH ANESTHESIA Family History of Anesthesia Reaction: No Transfusion History: No Prior Transfusion(s) Intubation History: Unknown - Review of Systems General: No Symptoms Pulmonary: No Symptoms Cardiovascular: No Symptoms Gastrointestinal: No Symptoms Neurological: No Symptoms Other: Reports: None - Physical Assessment NPO Status Date: 01/23/20 Height: 6 ft Weight: 135.624 kg ASA Class: 2 Airway Class: Mallampati = 3 Dentition: Reports: Normal Dentition ROM/Head Extension: Full Lungs: Clear to Auscultation, Normal Respiratory Effort Cardiovascular: Regular Rate, Irregular Rhythm - Allergies Allergies/Adverse Reactions: Allergies Allergy/AdvReac Type Severity Reaction Status Date / Time amoxicillin [From Augmentin] Allergy Diarrhea Verified 01/18/20 10:37 clavulanic acid Allergy Diarrhea Verified 01/18/20 10:37 [From Augmentin] - Blood Blood Available: No - Anesthesia Plan Pre-Op Medication Ordered: None - Acknowledgements Anesthesia Type Planned: Spinal Pt an Appropriate Candidate for the Planned Anesthesia: Yes Alternatives and Risks of Anesthesia Discussed w Pt/Guardian: Yes Pt/Guardian Understands and Agrees with Anesthesia Plan: Yes Additional Comments: PMH: hx PSVT, htn, hld, JESSICA- uses CPAP, gerd, PLAN: spinal with iv sedation PreAnesthesia Questionnaire HEENT History: Reports: Allergic Rhinitis, Other (See Below) Other HEENT History: wears glasses Cardiovascular History: Reports: High Cholesterol, Hypertension Respiratory History: Reports: Sleep Apnea Other Respiratory History: uses CPAP Gastrointestinal History: Reports: GERD Genitourinary History: Reports: None Musculoskeletal History: Reports: Arthritis Other Musculoskeletal History: tendonitis left ankle Neurological History: Reports: None Psychiatric History: Reports: None Endocrine/Metabolic History: Reports: Obesity/BMI 30+ Hematologic History: Reports: None Immunologic History: Reports: None Oncologic (Cancer) History: Reports: None Dermatologic History: Reports: None - Infectious Disease History Infectious Disease History: Reports: Chicken Pox - Past Surgical History Head Surgeries/Procedures: Reports: None HEENT Surgical History: Reports: Naso-Sinus Surgery, Other (See Below), Tonsillectomy Other HEENT Surgeries/Procedures: hx sinus surgery x3 Cardiovascular Surgical History: Reports: None Respiratory Surgical History: Reports: None GI Surgical History: Reports: Colonoscopy Male Surgical History: Reports: None Endocrine Surgical History: Reports: None Neurological Surgical History: Reports: None Musculoskeletal Surgical History: Reports: Knee Replacement Other Musculoskeletal Surgeries/Procedures:: hx left total knee arthroplasty Oncologic Surgical History: Reports: None Dermatological Surgical History: Reports: None - SUBSTANCE USE Smoking Status *Q: Never Smoker - HOME MEDS Home Medications: Home Meds Pravastatin Sodium [Pravastatin (Pravachol)] 40 mg PO BEDTIME 09/03/14 [History] Fluticasone Propionate [Flonase] 1 puff NASBOTH DAILY PRN 09/05/14 [History] Allopurinol [Zyloprim] 100 mg PO BID 03/16/16 [History] Montelukast Sodium 10 mg PO BEDTIME 07/20/17 [History] Nitroglycerin [Nitrostat] 0.4 mg SL ASDIRECTED PRN 07/20/17 [History] Metoprolol Succinate 100 mg PO BEDTIME 07/26/17 [History] Aspirin [[place] Aspirin EC] 81 mg PO DAILY 09/30/17 [History] Omeprazole 40 mg PO BEDTIME 09/30/17 [History] Multivitamin [Multivitamins] 1 tab PO DAILY 01/18/20 [History] - CURRENT (IN HOUSE) MEDS Current Meds: Current Medications Famotidine (Pepcid) 40 mg IVPUSH ONARRIVE [facility] Last Admin: 01/24/20 10:02 Dose: 40 mg Cefazolin Sodium/Dextrose 3 gm (/ Premix) 75 mls @ 100 mls/hr IV ONCALL MAGALI Ropivacaine 49.25 ml/Ketorolac Tromethamine 30 mg/Epinephrine HCl 0.5 mg/ Clonidine HCl 80 mcg/ Sodium Chloride 75 mls @ 50 mls/sec INJECT ASDIRECTED MAGALI Lactated Ringer's (Ringers, Lactated) 1,000 mls @ 100 mls/hr IV ASDIRECTED MAGALI Scopolamine (Transderm-Scop) 1.5 mg TRDERM ONARRIVE [facility] Last Admin: 01/24/20 10:01 Dose: 1.5 mg Discontinued Medications Cefazolin Sodium/Dextrose (Ancef) Confirm Administered Dose 2 gm IV .STK-MED ONE Stop: 01/24/20 09:02 Dexamethasone (Dexamethasone) Confirm Administered Dose 20 mg .ROUTE .STK-MED ONE Stop: 01/24/20 08:56 Fentanyl (Sublimaze) Confirm Administered Dose 100 mcg .ROUTE .STK-MED ONE Stop: 01/24/20 08:57 Cefazolin Sodium/Dextrose (Ancef) Confirm Administered Dose 50 mls @ as directed .ROUTE .STK-MED ONE Stop: 01/24/20 09:02 Lidocaine HCl (Xylocaine 2%) Confirm Administered Dose 100 mg .ROUTE .STK-MED ONE Stop: 01/24/20 08:56 Midazolam HCl (Versed 1 Mg/Ml) Confirm Administered Dose 2 mg .ROUTE .STK-MED ONE Stop: 01/24/20 08:57 Ondansetron HCl (Zofran) Confirm Administered Dose 4 mg .ROUTE .STK-MED ONE Stop: 01/24/20 08:56 Propofol (Diprivan 20 Ml) Confirm Administered Dose 600 mg .ROUTE .STK-MED ONE Stop: 01/24/20 08:56 Propofol (Diprivan 20 Ml) Confirm Administered Dose 200 mg .ROUTE .STK-MED ONE Stop: 01/24/20 08:57 Tranexamic Acid (Cyklokapron) 1,000 mg TOP ASDIRECTED ONE Stop: 01/24/20 06:01
[2020-01-24] MEDS ORDERED: ePHEDrine 50 MG/ML SDV ONE (11:54)
[2020-01-24] MEDS ORDERED: fentaNYL 100 MCG/2 ML SDV IVPUSH PRN (12:05)
[2020-01-24] MEDS ORDERED: Phenylephrine/Normal Saline 100 MCG/ML 10 ML Syringe ONE (12:50)
[2020-01-24] MEDS ORDERED: Sodium Chloride 0.9% 2.5 ML Syringe FLUSH PRN (13:19)
[2020-01-24] MEDS ORDERED: Aluminum Hydroxide/Magnesium Hydroxide/Simethicone Susp 30 ML Cup PO PRN (13:19)
[2020-01-24] MEDS ORDERED: diphenhydrAMINE 25 MG Cap PO PRN (13:19)
[2020-01-24] MEDS ORDERED: traMADol 50 MG Tab PO PRN (13:19)
[2020-01-24] MEDS ORDERED: Docusate Sodium 100 MG Cap PO PRN (13:19)
[2020-01-24] MEDS ORDERED: Morphine 2 MG/ML Syringe IVPUSH PRN (13:19)
[2020-01-24] MEDS ORDERED: Bisacodyl 10 MG Supp RECTAL PRN (13:19)
[2020-01-24] MEDS ORDERED: Sodium Chloride 0.9% 10 ML Syringe FLUSH PRN (13:19)
[2020-01-24] MEDS ORDERED: Ondansetron 4 MG/2 ML SDV IVPUSH PRN (13:19)
[2020-01-24] MEDS ORDERED: Nitroglycerin 0.4 MG Tab.SL SL PRN (13:22)
[2020-01-24] MEDS ORDERED: Fluticasone Propionate Nasal Spray 16 GM Bottle NASBOTH PRN (13:22)
--- NOTE | 2020-01-24 14:42 | PCM.POSTAN ---
POST ANESTHESIA ASSESSMENT - MENTAL STATUS Mental Status: Alert, Oriented - VITAL SIGNS Vital Signs: Last Vital Signs Temp 97.5 F 01/24/20 13:51 Pulse 66 01/24/20 14:36 Resp 17 01/24/20 14:36 BP 110/56 L 01/24/20 14:36 Pulse Ox 96 01/24/20 14:36 - RESPIRATORY Respiratory Status: Respiratory Rate WNL, Airway Patent, O2 Saturation Stable - CARDIOVASCULAR CV Status: Pulse Rate WNL, Blood Pressure Stable - GASTROINTESTINAL GI Status: No Symptoms - PAIN Pain Score: 0 - POST OP HYDRATION Hydration Status: Adequate & Stable
--- NOTE | 2020-01-24 14:56 | PCM.OPNOTE ---
- General Post-Op/Procedure Note Date of Surgery/Procedure: 01/24/20 Operative Procedure(s): r pka Pre Op Diagnosis: right knee primary oa Post-Op Diagnosis: Same Anesthesia Technique: Combo Spinal/Epidural, Moderate Sedation Primary Surgeon: Neftaly Chao Fire Crew Worker: Toyin Wagner EBL in mLs: 200 Complications: None Condition: Good Free Text/Narrative:: Intake & Output 01/23/20 01/24/20 01/24/20 22:59 06:59 14:59 Intake Total 2100 Output Total 400 Balance 1700
[2020-01-24] MEDS: Ketorolac 15 MG/ML SDV IVPUSH SCH ×2 (15:08→19:26)
--- NOTE | 2020-01-24 15:17 | CR ---
Right knee: AP and lateral views of the right knee were obtained. Comparison: Previous right knee study of 12/07/19. Medial hemiarthroplasty is seen. Components are aligned. Lateral joint space is preserved. Mild osteophytes noted off the patella. Soft tissue air noted from the surgical procedure. Skin afshan are present. Impression: 1. Recently placed medial hemiarthroplasty. Diagnostic code #2 This report was dictated in [place] Standard Time
[2020-01-24] MEDS: Acetaminophen/oxyCODONE 325-5 MG Tab PO PRN (15:25)
--- NOTE | 2020-01-24 17:15 | PCM.DCSUM1 ---
Discharge Summary - Hospital Course Diagnosis: Stroke: No - Discharge Data Discharge Date: 01/25/20 Discharge Disposition: Home, Self-Care 01 Condition: Good - Referral to Home Health Primary Care Physician: José Miguel Ness MD - Discharge Diagnosis/Problem(s) (1) Unilateral primary osteoarthritis, right knee SNOMED Code(s): 936638355898010, [id number] ICD Code: M17.11 - UNILATERAL PRIMARY OSTEOARTHRITIS, RIGHT KNEE Status: Acute Current Visit: Yes - Patient Summary/Data Operative Procedure(s) Performed: r pka Consults: Consultations 01/24/20 13:19 PT Evaluation and Treatment [CONS] Routine - Patient Instructions Diet: Usual Diet as Tolerated Activity: Apply Ice, As Tolerated, No Strenuous Activities Driving: Do Not Drive Showering/Bathing: May Shower Wound/Incision Care: Keep Operative Site/Wound Site Clean and Dry, Change Dressing Daily Notify Provider of: Fever, Increased Pain, Swelling and Redness, Drainage, Nausea and/or Vomiting - Discharge Plan *PRESCRIPTION DRUG MONITORING PROGRAM REVIEWED*: Yes *COPY OF PRESCRIPTION DRUG MONITORING REPORT IN PATIENT DOUGLAS: No Home Medications: Home Meds Pravastatin Sodium [Pravastatin (Pravachol)] 40 mg PO BEDTIME 09/03/14 [History] Fluticasone Propionate [Flonase] 1 puff NASBOTH DAILY PRN 09/05/14 [History] Allopurinol [Zyloprim] 100 mg PO BID 03/16/16 [History] Montelukast Sodium 10 mg PO BEDTIME 07/20/17 [History] Nitroglycerin [Nitrostat] 0.4 mg SL ASDIRECTED PRN 07/20/17 [History] Metoprolol Succinate 100 mg PO BEDTIME 07/26/17 [History] Aspirin [[place] Aspirin EC] 81 mg PO DAILY 09/30/17 [History] Omeprazole 40 mg PO BEDTIME 09/30/17 [History] Multivitamin [Multivitamins] 1 tab PO DAILY 01/18/20 [History] - Discharge Summary/Plan Comment DC Time >30 min.: No - General Info Functional Status: Reports: Pain Controlled, Tolerating Diet, Ambulating, Urinating - Review of Systems General: Reports: No Symptoms HEENT: Reports: No Symptoms Pulmonary: Reports: No Symptoms Cardiovascular: Reports: No Symptoms Gastrointestinal: Reports: No Symptoms Genitourinary: Reports: No Symptoms Musculoskeletal: Reports: Leg Pain, Joint Pain, Joint Swelling Skin: Reports: No Symptoms Neurological: Reports: No Symptoms Psychiatric: Reports: No Symptoms - Patient Data Vitals - Most Recent: Last Vital Signs Temp 36.4 C 01/24/20 13:51 Pulse 66 01/24/20 14:36 Resp 17 01/24/20 14:36 BP 110/56 L 01/24/20 14:36 Pulse Ox 96 01/24/20 14:36 Weight - Most Recent: 135.624 kg I&O - Last 24 hours: Intake & Output 01/24/20 01/24/20 01/24/20 06:59 14:59 22:59 Intake Total 2100 Output Total 400 Balance 1700 Lab Results - Last 24 hrs: Laboratory Results - last 24 hr 01/24/20 Range/Units 10:05 Blood Type A POSITIVE Antibody Screen NEGATIVE Med Orders - Current: Current Medications Al Hydroxide/Mg Hydroxide (Mag-Al Plus) 30 ml PO Q4H PRN PRN Reason: Indigestion Allopurinol (Zyloprim) 100 mg PO BID [facility] Aspirin (Aspirin) 325 mg PO DAILY [facility] Bisacodyl (Dulcolax) 10 mg RECTAL DAILY PRN PRN Reason: Constipation Celecoxib (Celebrex) 200 mg PO BID [facility] Diphenhydramine HCl (Benadryl) 25 - 50 mg PO Q6H PRN PRN Reason: Itching Docusate Sodium (Colace) 100 mg PO BID PRN PRN Reason: Constipation Famotidine (Pepcid) 40 mg IVPUSH ONARRIVE [facility] Last Admin: 01/24/20 10:02 Dose: 40 mg Famotidine (Pepcid) 40 mg PO DAILY [facility] Fentanyl (Sublimaze) 50 mcg IVPUSH Q5M PRN PRN Reason: Pain (severe 7-10) Stop: 01/25/20 12:05 Fluticasone Propionate (Flonase) 0 gm NASBOTH DAILY PRN PRN Reason: Allergies Cefazolin Sodium/Dextrose 3 gm (/ Premix) 75 mls @ 100 mls/hr IV ONCALL [facility] Ropivacaine 49.25 ml/Ketorolac Tromethamine 30 mg/Epinephrine HCl 0.5 mg/ Clonidine HCl 80 mcg/ Sodium Chloride 75 mls @ 50 mls/sec INJECT ASDIRECTED [facility] Lactated Ringer's (Ringers, Lactated) 1,000 mls @ 100 mls/hr IV ASDIRECTED [facility] Last Admin: 01/24/20 09:55 Dose: 100 mls/hr Cefazolin Sodium/Dextrose 2 gm (/ Premix) 50 mls @ 100 mls/hr IV Q8H [facility] Stop: 01/25/20 04:29 Ketorolac Tromethamine (Toradol) 15 mg IVPUSH Q6H [facility] Stop: 01/25/20 05:00 Last Admin: 01/24/20 15:08 Dose: 15 mg Metoprolol Succinate (Toprol Xl) 100 mg PO BEDTIME [facility] Montelukast Sodium (Singulair) 10 mg PO BEDTIME [facility] Morphine Sulfate (Morphine) 1 - 2 mg IVPUSH Q3H PRN PRN Reason: Pain Last Admin: 01/24/20 17:11 Dose: 2 mg Nitroglycerin (Nitrostat) 0.4 mg SL ASDIRECTED PRN PRN Reason: Chest Pain Ondansetron HCl (Zofran) 4 mg IVPUSH Q6H PRN PRN Reason: Nausea/Vomiting Last Admin: 01/24/20 12:00 Dose: 4 mg Oxycodone/Acetaminophen (Percocet 325-5 Mg) 1 - 2 tab PO Q4H PRN PRN Reason: Pain Last Admin: 01/24/20 15:25 Dose: 2 tab Polyethylene Glycol (Miralax) 17 gm PO DAILY [facility] Pravastatin Sodium (Pravachol) 40 mg PO BEDTIME [facility] Scopolamine (Transderm-Scop) 1.5 mg TRDERM ONARRIVE [facility] Last Admin: 01/24/20 10:01 Dose: 1.5 mg Sodium Chloride (Saline Flush) 10 ml FLUSH ASDIRECTED PRN PRN Reason: Keep Vein Open Sodium Chloride (Saline Flush) 2.5 ml FLUSH ASDIRECTED PRN PRN Reason: Keep Vein Open Tramadol HCl (Ultram) 50 - 100 mg PO Q6H PRN PRN Reason: Pain Discontinued Medications Cefazolin Sodium/Dextrose (Ancef) Confirm Administered Dose 2 gm IV .STK-MED ONE Stop: 01/24/20 09:02 Dexamethasone (Dexamethasone) Confirm Administered Dose 20 mg .ROUTE .STK-MED ONE Stop: 01/24/20 08:56 Ephedrine Sulfate (Ephedrine Sulfate) Confirm Administered Dose 50 mg .ROUTE .STK-MED ONE Stop: 01/24/20 11:55 Fentanyl (Sublimaze) Confirm Administered Dose 100 mcg .ROUTE .STK-MED ONE Stop: 01/24/20 08:57 Cefazolin Sodium/Dextrose (Ancef) Confirm Administered Dose 50 mls @ as directed .ROUTE .STK-MED ONE Stop: 01/24/20 09:02 Lidocaine HCl (Xylocaine 2%) Confirm Administered Dose 100 mg .ROUTE .STK-MED ONE Stop: 01/24/20 08:56 Midazolam HCl (Versed 1 Mg/Ml) Confirm Administered Dose 2 mg .ROUTE .STK-MED ONE Stop: 01/24/20 08:57 Ondansetron HCl (Zofran) Confirm Administered Dose 4 mg .ROUTE .STK-MED ONE Stop: 01/24/20 08:56 Phenylephrine HCl (Phenylephrine In Ns 100 Mcg/Ml) Confirm Administered Dose 1 mg .ROUTE .STK-MED ONE Stop: 01/24/20 12:51 Propofol (Diprivan 20 Ml) Confirm Administered Dose 600 mg .ROUTE .STK-MED ONE Stop: 01/24/20 08:56 Propofol (Diprivan 20 Ml) Confirm Administered Dose 200 mg .ROUTE .STK-MED ONE Stop: 01/24/20 08:57 Propofol (Diprivan 20 Ml) Confirm Administered Dose 200 mg .ROUTE .STK-MED ONE Stop: 01/24/20 12:57 Tranexamic Acid (Cyklokapron) 1,000 mg TOP ASDIRECTED ONE Stop: 01/24/20 06:01 Tranexamic Acid (Cyklokapron) Confirm Administered Dose 1,000 mg .ROUTE .STK- MED ONE Stop: 01/24/20 13:02 - Exam General: Reports: Alert, Oriented HEENT: Reports: Pupils Equal, Pupils Reactive, EOMI, Mucous Membr. Moist/[place] Neck: Reports: Supple Lungs: Reports: Normal Respiratory Effort Extremities: Leg Pain, Limited Range of Motion Skin: Reports: Warm, Dry, Intact Wound/Incisions: Reports: Healing Well, Dressing Dry and Intact, No Drainage Neurological: Reports: No New Focal Deficit Psy/Mental Status: Reports: Alert, Normal Affect, Normal Mood Discharge Operative/Procedures - Procedures Performed Operations: right medial pka LP Indication: CSF analysis Arterial Line Indication: hemodynamic monitoring Chest Tube Indication: pneumothorax Thoracentesis Indication: pleural effusion Paracentesis Indication: ascites
--- NOTE | 2020-01-24 17:55 | OR ---
SURGEON: Neftaly Chao DATE OF PROCEDURE: 01/24/2020 PREOPERATIVE DIAGNOSIS: Right knee primary osteoarthritis. POSTOPERATIVE DIAGNOSIS: Right knee primary osteoarthritis. PROCEDURE: Right knee medial partial knee arthroplasty. PRIMARY SURGEON: Neftaly Chao DO. PLANT SENIOR MANAGER: KWAME Garcia. ROLE OF PLANT SENIOR MANAGER: Nurse practitioner, KWAME Garcia, played an essential role in assisting in this case, helping to position the patient, retract structures as needed, as well as suturing and cutting sutures as indicated. Her presence improved patient's safety and decreased operative time. ANESTHESIA: Spinal plus conscious sedation. FLUID: Lactated Ringer's solution. ESTIMATED BLOOD LOSS: 200 mL. COMPLICATIONS: None. SPECIMEN: None. DISCHARGE DISPOSITION: Stable to PACU. INSTRUMENTATION: DePuy Sigma fixed bearing size 4 femur; size 4 tibia, and size 4, 7 mm polyethylene tibial insert. HISTORY AND INDICATION FOR THE PROCEDURE: The patient was seen preoperatively by myself in the clinic. He had failed nonoperative treatment. Preoperative imaging confirmed the above-mentioned diagnosis. Risks and goals of the procedure were explained to the patient. Informed consent was obtained. DETAILS OF PROCEDURE: The patient was seen preoperatively by myself and the Anesthesia staff in the preoperative holding area where the operative site was marked. He was brought to the operative suite by the Anesthesia staff where spinal sedation was administered and conscious sedation was administered. A well-padded tourniquet was placed on the right thigh. The left lower extremity was placed into a stirrup. The right lower extremity was placed in the leg cobian. The right lower extremity was prepped and draped in a sterile manner. Time-out was called identifying the correct patient, the correct procedure, the correct site, and that antibiotics had been given within appropriate period of time. The right lower extremity was exsanguinated. Tourniquet was raised to 250 mmHg and taken down 34 minutes during cementing. A midline incision was made two fingerbreadths proximal to the patella down to the level of tibial tubercle. Medial parapatellar arthrotomy was then made. The anterior portion of the medial meniscus was removed as well as the infrapatellar fat pad. The medial tibial, proximal tibia was visualized using Bovie electrocautery. Bovie electrocautery was used for hemostasis during the case. The extramedullary tibial guide was then inserted and pinned in place. A vertical cut was then made with a sagittal saw in line with the ASIS and then the horizontal cut. I ended up making two more cuts to fit this at 7 mm with the paddle. After that had been performed, I removed the posterior portion of the medial meniscus. I then brought the knee into extension and pinned my distal femoral cutting guide in place. I then made my distal femoral cut. I used my paddle to measure the jail rolan anteriorly and marked this with a Bovie and then brought the knee back into flexion and burned a line between the two anterior and posteriorly for my chamfer guide. I then inserted the size 4 cutting guide, pinned that in place, and made my three chamfer cuts and then drilled two lug holes. I then removed that guide, used an osteotome to remove any extra bone, and then placed my femoral trial. This fit well and it fit well with the 7 mm paddle. I then removed the femoral trial and inserted my tibial base plate. For cutting, I used a lamina concrete polisher to hold this in place. I then gouged a place for my keel to fit for my base plate and then drilled the lug hole through the base plate. I then removed that. I then copiously irrigated with saline with pulse lavage and then dried the bone and then cemented my components in place in about 15 degrees of flexion and then let down the tourniquet. After the cement had dried, I removed any extra cement. Applied some TXA and local anesthetic and then inserted my size 4, 7 mm tibial polyethylene insert. I did take a few extra minutes to do this as the insert was not going down laterally or medially, but was able to get it on and confirmed that it was in good position and held in place using my [place]. I then irrigated again. I applied some collagen hemostasis agent as there was just some generalized oozing. My wet process assistant head miller then closed the parapatellar arthrotomy with 0 Stratafix followed by subcutaneous closure with #1 Stratafix followed by skin afshan, Betadine-soaked Adaptic, fluffs, and an Ronnie wrap. The patient was then allowed to awaken from conscious sedation and taken to the PACU in stable condition. [id number] / MODL /[id number]
[2020-01-24] MEDS: ceFAZolin 2 GM in Premix Bag 1 BAG IV SCH (20:22)
[2020-01-24] MEDS: Allopurinol 100 MG Tab PO SCH (20:24)
[2020-01-24] MEDS ORDERED: Montelukast 10 MG Tab PO SCH (21:00)
[2020-01-24] MEDS ORDERED: Pravastatin 40 MG Tab PO SCH (21:00)
[2020-01-24] MEDS ORDERED: Metoprolol Succinate 50 MG Tab.ER PO SCH (21:00)
[2020-01-25] MEDS: Acetaminophen/oxyCODONE 325-5 MG Tab PO PRN ×2 (00:31→08:53)
[2020-01-25] MEDS: Ketorolac 15 MG/ML SDV IVPUSH SCH (01:24)
[2020-01-25] MEDS: ceFAZolin 2 GM in Premix Bag 1 BAG IV SCH (03:43)
[2020-01-25 08:06] VITALS: PULSE 65
[2020-01-25] MEDS: Allopurinol 100 MG Tab PO SCH (08:53)
[2020-01-25] MEDS ORDERED: Famotidine 20 MG Tab PO SCH (09:00)
[2020-01-25] MEDS ORDERED: Celecoxib 100 MG Cap PO SCH (09:00)
[2020-01-25] MEDS ORDERED: Aspirin 325 MG Tab PO SCH (09:00)
[2020-01-25] MEDS ORDERED: Polyethylene Glycol 3350 Powder 17 GM Packet PO SCH (09:00)
[2020-01-25 11:47] VITALS: BP 114/78
== END 2020-01-25 15:15 | disposition home or self-care (01) | DRG 302 ==
LOC: EDSTATUS 08:00 → MW.MS 08:57
PROVIDERS: ADMIT Orthopaedic Surgery; ATTEND Orthopaedic Surgery
PROC: 0SRC0L9 Replacement of Right Knee Joint with Medial Unicondylar Synthetic Substitute, Cemented, Open Approach (ICD-10-PCS; principal; 2020-01-24)
DX: M17.11 Unilateral primary osteoarthritis, right knee (principal); I25.10 Atherosclerotic heart disease of native coronary artery without angina pectoris; I10 Essential (primary) hypertension; E78.00 Pure hypercholesterolemia, unspecified; M10.9 Gout, unspecified; K21.9 Gastro-esophageal reflux disease without esophagitis; G47.33 Obstructive sleep apnea (adult) (pediatric); R73.03 Prediabetes; Z88.8 Allergy status to other drugs, medicaments and biological substances; Z79.82 Long term (current) use of aspirin; Z79.899 Other long term (current) drug therapy
CPT/HCPCS: 36415; 73560-26-RT; 73560-RT; 85014; 85018; 86850; 86900; 86901; 97161-GP; A9270-GY; C1776; J0171; J0690; J0735; J1100; J1885; J2001; J2250; J2270; J2370; J2405; J2704; J2795; J3010; J3490; J7050; J7120

== ENCOUNTER 2021-03-05 06:37 | Day surgery (SDC) | payer BC ==
[~2021-03-05 06:37] MED LIST changes: -Famotidine 20 MG/2 ML SDV IVPUSH SCH; +Lactated Ringers 1,000 ML IV SCH; -Ropivacaine 49.25 ML, Ketorolac 30 MG, EPINEPHrine 0.5 MG, cloNIDine 80 MCG in Sodium C... INJECT SCH; -Scopolamine 1.5 MG Transdermal Patch TRDERM SCH
[2021-03-05] MEDS ORDERED: Midazolam 1 MG/ML 2 ML SDV ONE (07:03)
[2021-03-05] MEDS ORDERED: Propofol 200 MG/20 ML SDV ONE (07:03)
[2021-03-05] MEDS ORDERED: fentaNYL 100 MCG/2 ML SDV ONE (07:03)
--- NOTE | 2021-03-05 07:23 | PCM.PREANE ---
Preanesthetic Assessment - Anesthesia/Transfusion/Family Hx Anesthesia History: Prior Anesthesia Without Reaction Other Type of Anesthesia Reaction Comment: DENIES ANY PROBLEMS WITH ANESTHESIA Family History of Anesthesia Reaction: No Transfusion History: No Prior Transfusion(s) Intubation History: Unknown - Review of Systems General: No Symptoms Pulmonary: No Symptoms Cardiovascular: No Symptoms Gastrointestinal: No Symptoms Neurological: No Symptoms Other: Reports: None - Physical Assessment NPO Status Date: 03/05/21 NPO Status Time: 00:05 Vital Signs: Last Vital Signs Temp 97.3 F 03/05/21 06:52 Pulse 56 L 03/05/21 06:52 Resp 16 03/05/21 06:52 BP 154/86 H 03/05/21 06:52 Pulse Ox 96 03/05/21 06:52 Height: 6 ft Weight: 328 lb ASA Class: 3 Mental Status: Alert & Oriented x3 Airway Class: Mallampati = 3 Dentition: Reports: Normal Dentition ROM/Head Extension: Limited/Partial Lungs: Clear to Auscultation, Normal Respiratory Effort Cardiovascular: Regular Rate, Regular Rhythm - Allergies Allergies/Adverse Reactions: Allergies Allergy/AdvReac Type Severity Reaction Status Date / Time amoxicillin [From Augmentin] Allergy Diarrhea Verified 02/27/21 08:43 clavulanic acid Allergy Diarrhea Verified 03/05/21 06:56 [From Augmentin] - Anesthesia Plan Pre-Op Medication Ordered: None - Acknowledgements Anesthesia Type Planned: General Anesthesia Pt an Appropriate Candidate for the Planned Anesthesia: Yes Alternatives and Risks of Anesthesia Discussed w Pt/Guardian: Yes Pt/Guardian Understands and Agrees with Anesthesia Plan: Yes Additional Comments: npo min htn hx svt on b francois for 15 years cardiac cath 2016 told pretty much nl linda w cpap gout tob none etoh none bmi 45 morbid obesity on occasion with exertion his heart rate increases - relieved with rest no ntg used PreAnesthesia Questionnaire HEENT History: Reports: Allergic Rhinitis, Other (See Below) Other HEENT History: wears glasses Cardiovascular History: Reports: Arrhythmia, High Cholesterol, Hypertension Respiratory History: Reports: Sleep Apnea Other Respiratory History: uses CPAP Gastrointestinal History: Reports: Colon Polyp, GERD Genitourinary History: Reports: None Musculoskeletal History: Reports: Osteoarthritis Other Musculoskeletal History: rt knee pain Neurological History: Reports: None Psychiatric History: Reports: None Endocrine/Metabolic History: Reports: Obesity/BMI 30+ Hematologic History: Reports: None Immunologic History: Reports: None Oncologic (Cancer) History: Reports: None Dermatologic History: Reports: None - Infectious Disease History Infectious Disease History: Reports: Chicken Pox - Past Surgical History Head Surgeries/Procedures: Reports: None HEENT Surgical History: Reports: Naso-Sinus Surgery, Other (See Below), Tonsillectomy Other HEENT Surgeries/Procedures: hx sinus surgery x3 Cardiovascular Surgical History: Reports: Other (See Below) Other Cardiovascular Surgeries/Procedures: cardiac cath-no stents placed Respiratory Surgical History: Reports: None GI Surgical History: Reports: Colonoscopy, EGD Male Surgical History: Reports: None Endocrine Surgical History: Reports: None Neurological Surgical History: Reports: None Musculoskeletal Surgical History: Reports: Knee Replacement Other Musculoskeletal Surgeries/Procedures:: hx left total knee arthroplasty, right partial knee replacement Oncologic Surgical History: Reports: None Dermatological Surgical History: Reports: None - SUBSTANCE USE Tobacco Use Status *Q: Never Tobacco User - HOME MEDS Home Medications: Home Meds Pravastatin Sodium [Pravastatin (Pravachol)] 40 mg PO BEDTIME 09/03/14 [History] Fluticasone Propionate [Flonase] 1 puff NASBOTH DAILY PRN 09/05/14 [History] Allopurinol [Zyloprim] 100 mg PO BID 03/16/16 [History] Montelukast Sodium 10 mg PO BEDTIME 07/20/17 [History] Nitroglycerin [Nitrostat] 0.4 mg SL ASDIRECTED PRN 07/20/17 [History] Metoprolol Succinate 100 mg PO BEDTIME 07/26/17 [History] Aspirin [[place] Aspirin EC] 81 mg PO DAILY 09/30/17 [History] Omeprazole 40 mg PO BEDTIME 09/30/17 [History] Multivitamin [Multivitamins] 1 tab PO DAILY 01/18/20 [History] Echinacea [Echinacea Herb] 1 tab PO DAILY 02/27/21 [History] [place]-3/DHA/Epa/Fish Oil [Fish Oil 1,000 mg Softgel] 1 tab PO DAILY 02/27/21 [History] Ubidecarenone [Coq-10] 1 tab PO DAILY 02/27/21 [History] - CURRENT (IN HOUSE) MEDS Current Meds: Current Medications Lactated Ringer's (Ringers, Lactated) 1,000 mls @ 125 mls/hr IV ASDIRECTED [facility] Last Admin: 03/05/21 06:56 Dose: 125 mls/hr Documented by: Discontinued Medications Fentanyl (Fentanyl 100 Mcg/2 Ml Sdv) Confirm Administered Dose 100 mcg .ROUTE .STK-MED ONE Stop: 03/05/21 07:04 Midazolam HCl (Midazolam 1 Mg/Ml 2 Ml Sdv) Confirm Administered Dose 2 mg .ROUTE .STK-MED ONE Stop: 03/05/21 07:04 Propofol (Propofol 200 Mg/20 Ml Sdv) Confirm Administered Dose 400 mg .ROUTE .STK-MED ONE Stop: 03/05/21 07:04
[2021-03-05] MEDS ORDERED: Levofloxacin/Dextrose 5%-Water 150 ML IV ONE (07:38)
[2021-03-05] MEDS ORDERED: Levofloxacin/Dextrose 5%-Water 750 MG in Premix Bag 1 BAG IV ONE (07:38)
--- NOTE | 2021-03-05 08:29 | PCM.OPNOTE ---
- General Post-Op/Procedure Note Date of Surgery/Procedure: 03/05/21 Operative Procedure(s): colonoscopy w bx Findings: see [id number]; pt had 750 mg iv levaquine as pt had B knee prosthesis, R one in less than 12 months Pre Op Diagnosis: BRBPR Post-Op Diagnosis: Same Anesthesia Technique: Moderate Sedation Primary Surgeon: Petr Guardado Pathology: 2 mm sessile polyp at distance 25 cm when withdrawal Complications: None Condition: Good
--- NOTE | 2021-03-05 08:42 | PCM.POSTAN ---
POST ANESTHESIA ASSESSMENT - MENTAL STATUS Mental Status: Alert, Oriented - VITAL SIGNS Vital Signs: Last Vital Signs Temp 97.3 F 03/05/21 06:52 Pulse 66 03/05/21 08:35 Resp 12 03/05/21 08:35 BP 98/53 L 03/05/21 08:35 Pulse Ox 94 L 03/05/21 08:35 - RESPIRATORY Respiratory Status: Respiratory Rate WNL, Airway Patent, O2 Saturation Stable - CARDIOVASCULAR CV Status: Pulse Rate WNL, Blood Pressure Stable - GASTROINTESTINAL GI Status: No Symptoms - PAIN Pain Score: 0 - POST OP HYDRATION Hydration Status: Adequate & Stable
--- NOTE | 2021-03-05 08:53 | PCM48HPAN ---
Post Anesthesia Note - EVALUATION WITHIN 48HRS OF ANESTHETIC Vital Signs in Normal Range: Yes Patient Participated in Evaluation: Yes Respiratory Function Stable: Yes Airway Patent: Yes Cardiovascular Function Stable: Yes Hydration Status Stable: Yes Pain Control Satisfactory: Yes Nausea and Vomiting Control Satisfactory: Yes Mental Status Recovered: Yes Vital Signs: Last Vital Signs Temp 97.3 F 03/05/21 06:52 Pulse 66 03/05/21 08:35 Resp 12 03/05/21 08:35 BP 98/53 L 03/05/21 08:35 Pulse Ox 94 L 03/05/21 08:35 - COMMENTS/OBSERVATIONS Free Text/Narrative:: no problems
[2021-03-05 08:54] VITALS: BP 114/68; PULSE 61
--- NOTE | 2021-03-05 18:49 | OR ---
SURGEON: Petr Guardado MD DATE OF PROCEDURE: 03/05/2021 PREOPERATIVE DIAGNOSIS: Bright red blood per rectum. POSTOPERATIVE DIAGNOSIS: Colon polyp. DESCRIPTION OF PROCEDURE: The patient was taken to the endoscopy room. A time out was called, patient identified, and procedure identified. Diprivan was then administrated. Patient went from awake to sleep, hearing doctor talking or door closing is normal. Perineum inspection and digital examination were then performed. A well- lubricated colonoscope was gently inserted through the rectum, advanced past the rectosigmoid junction, the descending colon, splenic flexure, transverse colon, hepatic flexure, ascending colon, arrived to the cecum. Cecum was identified as dictated in the finding. Then the scope was carefully withdrawn while attention was paid to the mucosal surface for any abnormality. Air will be sucked out during the scope withdrawal. At the rectum, retroflexed to examine any rectal diseases, fistula or hemorrhoids. During mucosal examination, abnormality or polyp was noted; picture taken and biopsy performed. Patient tolerated procedure well. There were no intraoperative complications, and Dr. Guardado was present throughout the whole procedure. INTRAOPERATIVE FINDINGS: 1. The patient is easily sedated with PHOTO MANAGER and Diprivan, and the patient is soundly snoring. 2. The patient's bowel prep is a little bit below average. No semi-formed stool, but large amount of opaque yellow liquid stool and requiring almost continuously irrigation. 3. The patient's sigmoid colon is redundant with some maneuver. Cecum was indicated by the ileocecal fold, one-to-one indentation, appendiceal orifice, and ScopeGuide is pointing south. Mucosa examined upon withdrawal and the patient does not have diverticulosis, mass, growth, inflammation, stricture, ulceration, bleeding, or AV malformation. The patient does have a small polyp 2 mm at distance 25 on scope withdrawal. The patient does have some inflammation, not in the colon per se, but in the rectum some proctitis. Internal hemorrhoid is not very bad today, just mild-to- moderate internal hemorrhoid, and there is not a single hemorrhoid, just very mild today. No external hemorrhoids observed. The patient would benefit from a repeat colonoscopy in 10 years from today or if clinically indicated otherwise. We will discuss hemorrhoid situation with the patient in the office. As always, thank you for the kind referral. AMISH CAMACHO /[id number]
== END 2021-03-05 09:08 | disposition home or self-care (01) ==
LOC: MW.SDS 06:37
PROVIDERS: ATTEND Surgery
DX: K62.1 Rectal polyp (principal); K64.8 Other hemorrhoids; K21.9 Gastro-esophageal reflux disease without esophagitis; E78.00 Pure hypercholesterolemia, unspecified; I10 Essential (primary) hypertension; E66.01 Morbid (severe) obesity due to excess calories; G47.33 Obstructive sleep apnea (adult) (pediatric); Z98.890 Other specified postprocedural states; Z88.8 Allergy status to other drugs, medicaments and biological substances; Z79.82 Long term (current) use of aspirin; Z79.899 Other long term (current) drug therapy; Z88.1 Allergy status to other antibiotic agents; Z68.42 Body mass index [BMI] 45.0-49.9, adult
CPT/HCPCS: 45380; J1956; J2250; J2704; J3010; J7120; 00811

== ENCOUNTER 2021-03-08 08:44 | Inpatient (IN) | payer BC ==
[2021-03-08] MEDS ORDERED: Aspirin 81 MG Tab.Chew PO ONE ×2 (08:50→08:57)
[2021-03-08] MEDS ORDERED: Nitroglycerin 0.4 MG Tab.SL SL PRN (08:50)
[2021-03-08] MEDS ORDERED: Sodium Chloride 0.9% 2.5 ML Syringe FLUSH PRN (08:50)
--- NOTE | 2021-03-08 08:57 | EDM.PDOC ---
ED HPI GENERAL MEDICAL PROBLEM - General Stated Complaint: chest pain sob Time Seen by Provider: 03/08/21 08:49 Source of Information: Reports: Patient History Limitations: Reports: No Limitations - History of Present Illness INITIAL COMMENTS - FREE TEXT/NARRATIVE: 55-year-old male past medical history hypertension, gout presents for 1 week of palpitations, rapid heart rate, mild chest pain, mild shortness of breath. Patient notes that symptoms seem to be getting a little worse and are constant. Symptoms are worse when he is up walking around. He notes that he last had a cardiac cath roughly 3 years ago which was normal. He does not have any stents or history of IA. He denies any lower extremity pain or swelling. He denies abdominal pain, nausea, vomiting. He denies cough. chest Pain Score (Numeric/FACES): 2 - Related Data Allergies Allergy/AdvReac Type Severity Reaction Status Date / Time amoxicillin [From Augmentin] Allergy Diarrhea Verified 03/08/21 09:22 clavulanic acid Allergy Diarrhea Verified 03/08/21 09:22 [From Augmentin] Home Meds: Home Meds RX: Pravastatin Sodium [Pravastatin (Pravachol)] 40 mg PO BEDTIME 09/03/14 [History] RX: Fluticasone Propionate [Flonase] 1 puff NASBOTH DAILY PRN 09/05/14 [History] RX: Allopurinol [Zyloprim] 100 mg PO BID 03/16/16 [History] RX: Montelukast Sodium 10 mg PO BEDTIME 07/20/17 [History] RX: Nitroglycerin [Nitrostat] 0.4 mg SL ASDIRECTED PRN 07/20/17 [History] RX: Metoprolol Succinate 100 mg PO BEDTIME 07/26/17 [History] RX: Aspirin [Hayes Aspirin EC] 81 mg PO DAILY 09/30/17 [History] RX: Omeprazole 40 mg PO BEDTIME 09/30/17 [History] RX: Multivitamin [Multivitamins] 1 tab PO DAILY 01/18/20 [History] RX: Echinacea [Echinacea Herb] 1 tab PO DAILY 02/27/21 [History] RX: [place]-3/DHA/Epa/Fish Oil [Fish Oil 1,000 mg Softgel] 1 tab PO DAILY 02/27/21 [History] RX: Ubidecarenone [Coq-10] 1 tab PO DAILY 02/27/21 [History] Past Medical History HEENT History: Reports: Allergic Rhinitis, Other (See Below) Other HEENT History: wears glasses Cardiovascular History: Reports: Arrhythmia, High Cholesterol, Hypertension Respiratory History: Reports: Sleep Apnea Other Respiratory History: uses CPAP Gastrointestinal History: Reports: Colon Polyp, GERD Genitourinary History: Reports: None Musculoskeletal History: Reports: Osteoarthritis Other Musculoskeletal History: rt knee pain Neurological History: Reports: None Psychiatric History: Reports: None Endocrine/Metabolic History: Reports: Obesity/BMI 30+ Hematologic History: Reports: None Immunologic History: Reports: None Oncologic (Cancer) History: Reports: None Dermatologic History: Reports: None - Infectious Disease History Infectious Disease History: Reports: Chicken Pox - Past Surgical History Head Surgeries/Procedures: Reports: None HEENT Surgical History: Reports: Naso-Sinus Surgery, Other (See Below), Tonsillectomy Other HEENT Surgeries/Procedures: hx sinus surgery x3 Cardiovascular Surgical History: Reports: Other (See Below) Other Cardiovascular Surgeries/Procedures: cardiac cath-no stents placed Respiratory Surgical History: Reports: None GI Surgical History: Reports: Colonoscopy, EGD Male Surgical History: Reports: None Endocrine Surgical History: Reports: None Neurological Surgical History: Reports: None Musculoskeletal Surgical History: Reports: Knee Replacement Other Musculoskeletal Surgeries/Procedures:: hx left total knee arthroplasty, right partial knee replacement Oncologic Surgical History: Reports: None Dermatological Surgical History: Reports: None Social & Family History - Caffeine Use Caffeine Use: Reports: None ED ROS GENERAL - Review of Systems Review Of Systems: Comprehensive ROS is negative, except as noted in HPI. ED EXAM, GENERAL - Physical Exam Exam: See Below Exam Limited By: No Limitations General Appearance: Alert, WD/WN, No Apparent Distress Ears: Hearing Grossly Normal Throat/Mouth: Normal Voice, No Airway Compromise Head: Atraumatic, Normocephalic Neck: Normal Inspection Respiratory/Chest: No Respiratory Distress, Lungs Clear, Normal Breath Sounds, No Accessory Muscle Use Cardiovascular: Normal Peripheral Pulses, No Edema, Other (irregular rhythm ) GI/Abdominal: Soft, Non-Tender Extremities: Normal Inspection Neurological: Alert, Normal Cognition, Normal Gait Psychiatric: Normal Affect, Normal Mood Skin Exam: Warm, Dry, Intact, Normal Color #1 Interpretation EKG Date: 03/08/21 Time: 08:46 Rhythm: Other (sinus tachycardia with frequent PVCs (x7)) Avis: Normal P-Wave: Present QRS: Normal ST-T: Normal QT: Prolonged (517) MD/PQ Interval: 179 EKG Interpretation Comments: no overt ischemic changes Course - Vital Signs Last Recorded V/S: Last Vital Signs Temp 96.8 F L 03/08/21 08:49 Pulse 80 03/08/21 10:15 Resp 18 03/08/21 10:15 BP 105/76 03/08/21 10:15 Pulse Ox 94 L 03/08/21 10:15 - Orders/Labs/Meds Orders: Active Orders 24 hr Category Date Time Status Cardiac Monitoring [RC] . DIRECTED Care 03/08/21 08:50 Active EKG Documentation Completion [RC] STAT Care 03/08/21 08:50 Active Pulse Oximetry [] ASDIRECTED Care 03/08/21 08:50 Active PTT,PARTIAL THROMBOPLSTIN TIME [COAG] Q6 Lab 03/08/21 11:30 Ordered PTT,PARTIAL THROMBOPLSTIN TIME [COAG] Q6 Lab 03/08/21 11:45 Ordered PTT,PARTIAL THROMBOPLSTIN TIME [COAG] Q6 Lab 03/08/21 17:30 Ordered PTT,PARTIAL THROMBOPLSTIN TIME [COAG] Q6 Lab 03/08/21 17:45 Ordered PTT,PARTIAL THROMBOPLSTIN TIME [COAG] Q6 Lab 03/08/21 23:30 Ordered PTT,PARTIAL THROMBOPLSTIN TIME [COAG] Q6 Lab 03/08/21 23:45 Ordered PTT,PARTIAL THROMBOPLSTIN TIME [COAG] Q6 Lab 03/09/21 05:30 Ordered PTT,PARTIAL THROMBOPLSTIN TIME [COAG] Q6 Lab 03/09/21 05:45 Ordered PTT,PARTIAL THROMBOPLSTIN TIME [COAG] Q6 Lab 03/09/21 11:30 Ordered PTT,PARTIAL THROMBOPLSTIN TIME [COAG] Q6 Lab 03/09/21 11:45 Ordered PTT,PARTIAL THROMBOPLSTIN TIME [COAG] Q6 Lab 03/09/21 17:30 Ordered PTT,PARTIAL THROMBOPLSTIN TIME [COAG] Q6 Lab 03/09/21 17:45 Ordered PTT,PARTIAL THROMBOPLSTIN TIME [COAG] Q6H Lab 03/09/21 23:30 Ordered PTT,PARTIAL THROMBOPLSTIN TIME [COAG] Q6H Lab 03/09/21 23:45 Ordered PTT,PARTIAL THROMBOPLSTIN TIME [COAG] Stat Lab 03/08/21 11:34 Stop Req TROPONIN I [CHEM] Stat Lab 03/08/21 11:45 Ordered Heparin Sodium Med 03/08/21 11:33 Once 5,000 units IVPUSH ONETIME ONE Heparin Sodium/0.45% NaCl [Heparin 25,000 Units in 1/2 Med 03/08/21 11:30 Active NS 500 ML] 500 ml IV TITRATE Sodium Chloride 0.9% [Saline Flush] Med 03/08/21 08:50 Active 10 ml FLUSH ASDIRECTED PRN Sodium Chloride 0.9% [Saline Flush] Med 03/08/21 08:50 Active 2.5 ml FLUSH ASDIRECTED PRN Saline Lock Insert [OM.PC] Stat Oth 03/08/21 08:50 Ordered Medication Orders Heparin Sodium/Sodium Chloride (Heparin 25,000 Units In 1/2 Ns 500 Ml) 500 mls @ 52.2 mls/hr IV TITRATE MAGALI; Protocol Sodium Chloride (Sodium Chloride 0.9% 10 Ml Syringe) 10 ml FLUSH ASDIRECTED PRN PRN Reason: Keep Vein Open Last Admin: 03/08/21 08:58 Dose: 10 ml Documented by: NICOLÁS Sodium Chloride (Sodium Chloride 0.9% 2.5 Ml Syringe) 2.5 ml FLUSH ASDIRECTED PRN PRN Reason: Keep Vein Open Last Admin: 03/08/21 08:58 Dose: 2.5 ml Documented by: NICOLÁS Labs: Laboratory Tests 03/08/21 03/08/21 03/08/21 Range/Units 08:54 08:54 08:54 WBC 9.33 (4.0-11.0) K/uL RBC 5.76 (4.50-5.90) M/uL Hgb 18.3 H (13.0-17.0) g/dL Hct 52.5 H (38.0-50.0) % MCV 91.1 (80.0-98.0) fL MCH 31.8 (27.0-32.0) pg MCHC 34.9 (31.0-37.0) g/dL RDW Std Deviation 43.2 (28.0-62.0) fl RDW Coeff of Chata 13 (11.0-15.0) % Plt Count 216 (150-400) K/uL MPV 11.30 (7.40-12.00) fL Neut % (Auto) 64.2 (48.0-80.0) % Lymph % (Auto) 25.7 (16.0-40.0) % [place] % (Auto) 8.1 (0.0-15.0) % Eos % (Auto) 1.8 (0.0-7.0) % Baso % (Auto) 0.2 (0.0-1.5) % Neut # (Auto) 6.0 H (1.4-5.7) K/uL Lymph # (Auto) 2.4 (0.6-2.4) K/uL [place] # (Auto) 0.8 (0.0-0.8) K/uL Eos # (Auto) 0.2 (0.0-0.7) K/uL Baso # (Auto) 0.0 (0.0-0.1) K/uL Nucleated RBC % 0.0 /100WBC Nucleated RBCs # 0 K/uL INR 1.07 APTT 26.8 (18.6-31.3) SEC D-Dimer, Quantitative 1.98 H (0.0-0.50) mg/L FEU Sodium 137 (136-148) mmol/L Potassium 3.4 L (3.5-5.1) mmol/L Chloride 105 (98-107) mmol/L Carbon Dioxide 26.8 (21.0-32.0) mmol/L BUN 16 (7.0-18.0) mg/dL Creatinine 1.1 (0.8-1.3) mg/dL Est Cr Clr Drug Dosing 82.30 mL/min Estimated GFR (MDRD) > 60.0 ml/min Glucose 164 H (74-106) mg/dL Calcium 8.8 (8.5-10.1) mg/dL Magnesium 1.9 (1.8-2.4) mg/dL Total Bilirubin 1.8 H (0.2-1.0) mg/dL AST 25 (15-37) IU/L ALT 42 (14-63) IU/L Alkaline Phosphatase 129 H (46-116) U/L Troponin I < 0.050 (0.000-0.056) ng/mL B-Natriuretic Peptide (<100) PG/ML Total Protein 7.9 (6.4-8.2) g/dL Albumin 4.0 (3.4-5.0) g/dL Globulin 3.9 (2.6-4.0) g/dL Albumin/Globulin Ratio 1.0 (0.9-1.6) TSH 3rd Generation 1.81 (0.36-3.74) uIU/mL Urine Color Urine Appearance Urine pH (5.0-8.0) Ur Specific Savage (1.001-1.035) Urine Protein (NEGATIVE) mg/dL Urine Glucose (UA) (NEGATIVE) mg/dL Urine Ketones (NEGATIVE) mg/dL Urine Occult Blood (NEGATIVE) Urine Nitrite (NEGATIVE) Urine Bilirubin (NEGATIVE) Urine Urobilinogen (<2.0) EU/dL Ur Leukocyte Esterase (NEGATIVE) Urine RBC (0-2/HPF) Urine WBC (0-5/HPF) Ur Epithelial Cells (NONE-FEW) Urine Bacteria (NEGATIVE) SARS-CoV-2 RNA (MARQUEZ) (NEGATIVE) 03/08/21 03/08/21 03/08/21 Range/Units 08:54 09:05 10:46 WBC (4.0-11.0) K/uL RBC (4.50-5.90) M/uL Hgb (13.0-17.0) g/dL Hct (38.0-50.0) % MCV (80.0-98.0) fL MCH (27.0-32.0) pg MCHC (31.0-37.0) g/dL RDW Std Deviation (28.0-62.0) fl RDW Coeff of Chata (11.0-15.0) % Plt Count (150-400) K/uL MPV (7.40-12.00) fL Neut % (Auto) (48.0-80.0) % Lymph % (Auto) (16.0-40.0) % [place] % (Auto) (0.0-15.0) % Eos % (Auto) (0.0-7.0) % Baso % (Auto) (0.0-1.5) % Neut # (Auto) (1.4-5.7) K/uL Lymph # (Auto) (0.6-2.4) K/uL [place] # (Auto) (0.0-0.8) K/uL Eos # (Auto) (0.0-0.7) K/uL Baso # (Auto) (0.0-0.1) K/uL Nucleated RBC % /100WBC Nucleated RBCs # K/uL INR APTT (18.6-31.3) SEC D-Dimer, Quantitative (0.0-0.50) mg/L FEU Sodium (136-148) mmol/L Potassium (3.5-5.1) mmol/L Chloride (98-107) mmol/L Carbon Dioxide (21.0-32.0) mmol/L BUN (7.0-18.0) mg/dL Creatinine (0.8-1.3) mg/dL Est Cr Clr Drug Dosing mL/min Estimated GFR (MDRD) ml/min Glucose (74-106) mg/dL Calcium (8.5-10.1) mg/dL Magnesium (1.8-2.4) mg/dL Total Bilirubin (0.2-1.0) mg/dL AST (15-37) IU/L ALT (14-63) IU/L Alkaline Phosphatase (46-116) U/L Troponin I (0.000-0.056) ng/mL B-Natriuretic Peptide 45 (<100) PG/ML Total Protein (6.4-8.2) g/dL Albumin (3.4-5.0) g/dL Globulin (2.6-4.0) g/dL Albumin/Globulin Ratio (0.9-1.6) TSH 3rd Generation (0.36-3.74) uIU/mL Urine Color YELLOW Urine Appearance CLEAR Urine pH 7.0 (5.0-8.0) Ur Specific Savage 1.020 (1.001-1.035) Urine Protein NEGATIVE (NEGATIVE) mg/dL Urine Glucose (UA) NEGATIVE (NEGATIVE) mg/dL Urine Ketones NEGATIVE (NEGATIVE) mg/dL Urine Occult Blood NEGATIVE (NEGATIVE) Urine Nitrite NEGATIVE (NEGATIVE) Urine Bilirubin NEGATIVE (NEGATIVE) Urine Urobilinogen 1.0 (<2.0) EU/dL Ur Leukocyte Esterase TRACE H (NEGATIVE) Urine RBC NONE SEEN (0-2/HPF) Urine WBC 0-2 (0-5/HPF) Ur Epithelial Cells RARE (NONE-FEW) Urine Bacteria RARE (NEGATIVE) SARS-CoV-2 RNA (MARQUEZ) NEGATIVE (NEGATIVE) Meds: Medications Generic Name Dose Route Start Last Admin Trade Name Tammy PRN Reason Stop Dose Admin Heparin Sodium/Sodium Chloride 500 mls @ 52.2 mls/hr 03/08/21 11:30 Heparin 25,000 Units In 1/2 Ns 500 Ml IV TITRATE MAGALI Protocol 18 UNITS/KG/HR Sodium Chloride 10 ml 03/08/21 08:50 03/08/21 08:58 Sodium Chloride 0.9% 10 Ml Syringe FLUSH 10 ml ASDIRECTED PRN Administration Keep Vein Open Sodium Chloride 2.5 ml 03/08/21 08:50 03/08/21 08:58 Sodium Chloride 0.9% 2.5 Ml Syringe FLUSH 2.5 ml ASDIRECTED PRN Administration Keep Vein Open Discontinued Medications Generic Name Dose Route Start Last Admin Trade Name Tammy PRN Reason Stop Dose Admin Aspirin 324 mg 03/08/21 08:50 03/08/21 08:57 Aspirin 81 Mg Tab.Chew PO 03/08/21 08:51 243 mg ONETIME ONE Administration Aspirin 243 mg 03/08/21 08:57 03/08/21 08:58 Aspirin 81 Mg Tab.Chew PO 03/08/21 08:58 Not Given ONETIME ONE Iopamidol 100 ml 03/08/21 10:52 03/08/21 10:52 Iopamidol 755 Mg/Ml 500 Ml Multipack Bottle IVPUSH 03/08/21 10:53 100 ml ONETIME ONE Administration Nitroglycerin 0.4 mg 03/08/21 08:50 Nitroglycerin 0.4 Mg Tab.Sl SL Q5M PRN Chest Pain - Re-Assessments/Exams Free Text/Narrative Re-Assessment/Exam: 03/08/21 08:56 We will get labs and chest x-ray. Will give aspirin and nitroglycerin and reassess pain and blood pressure. 03/08/21 09:15 Patient declines nitroglycerin as he is not currently having any chest pain. 03/08/21 10:20 Patient's D-dimer is elevated. Will get CTA to rule out pulmonary embolism. 03/08/21 11:28 CT imaging is remarkable for an acute pulmonary embolism involving the posterior basal segmental artery of the right lower lobe. Heparin bolus and drip ordered. Will reach out to hospitalist for admission. 03/08/21 11:[address] Mccarty who agrees with plan to admit patient. Patient is agreeable with plan. Departure - Departure Time of Disposition: 11:34 Disposition: Admitted As Inpatient 65 Condition: Fair Clinical Impression: Pulmonary embolism Qualifiers: Pulmonary embolism type: single subsegmental (without acute cor pulmonale) Qualified Code(s): I26.93 - Single subsegmental pulmonary embolism without acute cor pulmonale - Discharge Information Referrals: José Miguel Ness MD [Primary Care Provider] - Sepsis Event Note (ED) - Focused Exam Vital Signs: Vital Signs Temp Pulse Resp BP BP Pulse Ox 03/08/21 10:15 80 18 105/76 94 L 03/08/21 09:45 87 18 118/66 95 03/08/21 09:15 67 17 131/68 131/68 95 03/08/21 08:49 96.8 F L 108 H 20 174/107 H 96 - My Orders Last 24 Hours: My Active Orders 03/08/21 08:50 Cardiac Monitoring [RC] . DIRECTED EKG Documentation Completion [RC] STAT Pulse Oximetry [RC] ASDIRECTED Sodium Chloride 0.9% [Saline Flush] 10 ml FLUSH ASDIRECTED PRN Sodium Chloride 0.9% [Saline Flush] 2.5 ml FLUSH ASDIRECTED PRN Saline Lock Insert [OM.PC] Stat 03/08/21 11:30 PTT,PARTIAL THROMBOPLSTIN TIME [COAG] Q6H Heparin Sodium/0.45% NaCl [Heparin 25,000 Units in 1/2 NS 500 ML] 500 ml IV TITRATE 03/08/21 11:33 Heparin Sodium 5,000 units IVPUSH ONETIME ONE 03/08/21 11:34 PTT,PARTIAL THROMBOPLSTIN TIME [COAG] Stat 03/08/21 11:45 PTT,PARTIAL THROMBOPLSTIN TIME [COAG] Q6H TROPONIN I [CHEM] Stat 03/08/21 17:30 PTT,PARTIAL THROMBOPLSTIN TIME [COAG] Q6H 03/08/21 17:45 PTT,PARTIAL THROMBOPLSTIN TIME [COAG] Q6H 03/08/21 23:30 PTT,PARTIAL THROMBOPLSTIN TIME [COAG] Q6H 03/08/21 23:45 PTT,PARTIAL THROMBOPLSTIN TIME [COAG] Q6H 03/09/21 05:30 PTT,PARTIAL THROMBOPLSTIN TIME [COAG] Q6H 03/09/21 05:45 PTT,PARTIAL THROMBOPLSTIN TIME [COAG] Q6H 03/09/21 11:30 PTT,PARTIAL THROMBOPLSTIN TIME [COAG] Q6H 03/09/21 11:45 PTT,PARTIAL THROMBOPLSTIN TIME [COAG] Q6H 03/09/21 17:30 PTT,PARTIAL THROMBOPLSTIN TIME [COAG] Q6H 03/09/21 17:45 PTT,PARTIAL THROMBOPLSTIN TIME [COAG] Q6H 03/09/21 23:30 PTT,PARTIAL THROMBOPLSTIN TIME [COAG] Q6H 03/09/21 23:45 PTT,PARTIAL THROMBOPLSTIN TIME [COAG] Q6H - Assessment/Plan Last 24 Hours: My Active Orders 03/08/21 08:50 Cardiac Monitoring [RC] . DIRECTED EKG Documentation Completion [RC] STAT Pulse Oximetry [RC] ASDIRECTED Sodium Chloride 0.9% [Saline Flush] 10 ml FLUSH ASDIRECTED PRN Sodium Chloride 0.9% [Saline Flush] 2.5 ml FLUSH ASDIRECTED PRN Saline Lock Insert [OM.PC] Stat 03/08/21 11:30 PTT,PARTIAL THROMBOPLSTIN TIME [COAG] Q6H Heparin Sodium/0.45% NaCl [Heparin 25,000 Units in 1/2 NS 500 ML] 500 ml IV TITRATE 03/08/21 11:33 Heparin Sodium 5,000 units IVPUSH ONETIME ONE 03/08/21 11:34 PTT,PARTIAL THROMBOPLSTIN TIME [COAG] Stat 03/08/21 11:45 PTT,PARTIAL THROMBOPLSTIN TIME [COAG] Q6H TROPONIN I [CHEM] Stat 03/08/21 17:30 PTT,PARTIAL THROMBOPLSTIN TIME [COAG] Q6H 03/08/21 17:45 PTT,PARTIAL THROMBOPLSTIN TIME [COAG] Q6H 03/08/21 23:30 PTT,PARTIAL THROMBOPLSTIN TIME [COAG] Q6H 03/08/21 23:45 PTT,PARTIAL THROMBOPLSTIN TIME [COAG] Q6H 03/09/21 05:30 PTT,PARTIAL THROMBOPLSTIN TIME [COAG] Q6H 03/09/21 05:45 PTT,PARTIAL THROMBOPLSTIN TIME [COAG] Q6H 03/09/21 11:30 PTT,PARTIAL THROMBOPLSTIN TIME [COAG] QH 03/09/21 11:45 PTT,PARTIAL THROMBOPLSTIN TIME [COAG] Q6H 03/09/21 17:30 PTT,PARTIAL THROMBOPLSTIN TIME [COAG] QH 03/09/21 17:45 PTT,PARTIAL THROMBOPLSTIN TIME [COAG] Q6H 03/09/21 23:30 PTT,PARTIAL THROMBOPLSTIN TIME [COAG] Q6H 03/09/21 23:45 PTT,PARTIAL THROMBOPLSTIN TIME [COAG] Q6H
[2021-03-08] MEDS: Sodium Chloride 0.9% 10 ML Syringe FLUSH PRN ×2 (08:58→20:27)
--- NOTE | 2021-03-08 09:50 | CR ---
INDICATION: Chest pain. TECHNIQUE: Upright portable AP image of the chest. COMPARISON: 06/29/2017. FINDINGS: Lungs clear. No pleural effusion or pneumothorax. Heart size and pulmonary vasculature within normal limits. No obvious rib fracture or other significant osseous abnormality. IMPRESSION: Negative chest. Dictated by Adin Baca MD @ Mar 08 2021 9:47AM Signed by Dr. Adin Baca @ Mar 08 2021 9:48AM
[2021-03-08 09:53] LABS: BLOOD UREA NITROGEN,BUN 16 mg/dL (7.0-18.0); CARBON DIOXIDE,CO2 26.8 mmol/L (21.0-32.0); CHLORIDE,CL 105 mmol/L (98-107); GLUCOSE RANDOM 164 mg/dL (74-106); POTASSIUM,K 3.4 mmol/L (3.5-5.1); SODIUM,NA 137 mmol/L (136-148)
[2021-03-08] MEDS ORDERED: Iopamidol 755 MG/ML 500 ML Multipack Bottle IVPUSH ONE (10:52)
--- NOTE | 2021-03-08 11:28 | CT ---
INDICATION: Elevated D-dimer. Rule out pulmonary embolism. TECHNIQUE: Volumetric helical scanning of the thorax was performed during infusion of 100 cc of Isovue 370 contrast material IV, timing optimized for pulmonary arterial opacification. Coronal and sagittal reconstructions were obtained. COMPARISON: None. FINDINGS: The pulmonary arteries are less than optimally opacified. An acute embolus is demonstrated in the posterior basal segmental artery of the right lower lobe. No other embolus is apparent. The heart size is normal. The lungs are clear. A noncalcified 2 mm right middle lobe nodule is noted on image 110 of series 402 and a 3 mm left lower lobe nodule is noted on image 127. No airway abnormality or pleural effusion is evident. No mediastinal or hilar lymphadenopathy is demonstrated. Images of the upper abdomen are unremarkable. IMPRESSION: 1. Suboptimal pulmonary arterial opacification. Acute pulmonary embolus involving the posterior basal segmental artery of the right lower lobe. 2. Noncalcified 3 mm left lower lobe nodule in 2 mm right middle lobe nodule. In accordance with Fleischner Society Guidelines (see below), if the patient is at low risk for lung cancer, no additional evaluation is necessary. If he has a smoking history or is otherwise at high risk for lung cancer, a [address] up [address] is recommended. These findings were discussed with Dr. Bautista at 11:25 a.m. on 03/08/2021. FLEISCHNER SOCIETY GUIDELINES: LOW RISK: - nodule less than 6 mm: No follow-up needed. - nodule 6-8 mm: Initial follow-up CT at 6-12 months and then at 18-24 months if no change. - nodule greater than 8 mm: Follow-up CTs at around 3, 9, and 24 months. Dynamic contrast-enhanced CT, PET, and/or biopsy. MULTIPLE LOW RISK: - nodule less than 6 mm: No follow-up needed. - nodule 6-8 mm: CT at 3-6 months, then consider CT at 18-24 months. - nodule greater than 8 mm: CT at 3-6 months, then consider CT at 18-24 months. HIGH RISK: - nodule less than 6 mm: Follow-up at 12 months. If no change, no further imaging needed. - nodule 6-8 mm: Initial follow-up CT at 3-6 months and then at 9-12 and 24 months if no change. - nodule greater than 8 mm: Follow-up CTs at around 3, 9, and 24 months. Dynamic contrast-enhanced CT, PET, and/or biopsy. MULTIPLE HIGH RISK: - nodule less than 6 mm: Optional CT at 12 months. - nodule 6-8 mm: CT at 3-6 months, then at 18-24 months. - nodule greater than 8 mm: CT at 3-6 months, then at 18-24 months. HIGH RISK is defined as one or more of the following: - at least 20 pack-year smoking history or equivalent second-hand exposure. - personal history of cancer or family history of lung cancer. - occupational exposure (asbestos, beryllium, silica, uranium, radon) - chronic interstitial/fibrotic lung disease. Please note that all CT scans at this facility use dose modulation, iterative reconstruction, and/or weight-based dosing when appropriate to reduce radiation dose to as low as reasonably achievable. Dictated by Adin Baca MD @ Mar 08 2021 11:11AM Signed by Dr. Adin Baca @ Mar 08 2021 11:26AM
[2021-03-08] MEDS ORDERED: Heparin Sodium/0.45% NaCl 500 ML IV SCH (11:30)
[2021-03-08] MEDS ORDERED: Heparin Sodium 5,000 Units/ML Vial IVPUSH ONE (11:33)
[2021-03-08] MEDS ORDERED: Acetaminophen 325 MG Tab PO PRN (12:23)
--- NOTE | 2021-03-08 12:35 | PCM.HP.2 ---
H&P History of Present Illness - General Date of Service: 03/08/21 Admit Problem/Dx: Admission Diagnosis/Problem Admission Diagnosis/Problem Pulmonary embolism - History of Present Illness Initial Comments - Free Text/Narative: 55 yo male with pmh of osteoarthritis, gout, nonobstructive CAD, and internal hemorrhoids who presented with one week of shortness of breath, right sided chest pain and palpitations. Patient reports that he sometimes has difficulty walking across the room. Patient is a truck drive and makes local deliveries. He had a colonoscopy three days ago. He reports intermittent bright red blood per rectum when he wipes that worsens with hard stool. Patient's colonoscopy revealed a coon polyp and mild proctitis and internal hemorrhoids. chest Pain Score (Numeric/FACES): 2 - Related Data Allergies/Adverse Reactions: Allergies Allergy/AdvReac Type Severity Reaction Status Date / Time amoxicillin [From Augmentin] Allergy Diarrhea Verified 03/08/21 12:29 clavulanic acid Allergy Diarrhea Verified 03/08/21 12:29 [From Augmentin] Home Medications: Home Meds Pravastatin Sodium [Pravastatin (Pravachol)] 40 mg PO BEDTIME 09/03/14 [History] Fluticasone Propionate [Flonase] 1 puff NASBOTH DAILY PRN 09/05/14 [History] Allopurinol [Zyloprim] 100 mg PO BID 03/16/16 [History] Montelukast Sodium 10 mg PO BEDTIME 07/20/17 [History] Nitroglycerin [Nitrostat] 0.4 mg SL ASDIRECTED PRN 07/20/17 [History] Metoprolol Succinate 100 mg PO BEDTIME 07/26/17 [History] Aspirin [[place] Aspirin EC] 81 mg PO DAILY 09/30/17 [History] Omeprazole 40 mg PO BEDTIME 09/30/17 [History] Multivitamin [Multivitamins] 1 tab PO DAILY 01/18/20 [History] Echinacea [Echinacea Herb] 1 tab PO DAILY 02/27/21 [History] Noti-3/DHA/Epa/Fish Oil [Fish Oil 1,000 mg Softgel] 1 tab PO DAILY 02/27/21 [ History] Ubidecarenone [Coq-10] 1 tab PO DAILY 02/27/21 [History] Past Medical History HEENT History: Reports: Allergic Rhinitis, Other (See Below) Other HEENT History: wears glasses Cardiovascular History: Reports: Arrhythmia, High Cholesterol, Hypertension Respiratory History: Reports: Sleep Apnea Other Respiratory History: uses CPAP Gastrointestinal History: Reports: Colon Polyp, GERD Genitourinary History: Reports: None Musculoskeletal History: Reports: Osteoarthritis Other Musculoskeletal History: rt knee pain Neurological History: Reports: None Psychiatric History: Reports: None Endocrine/Metabolic History: Reports: Obesity/BMI 30+ Hematologic History: Reports: None Immunologic History: Reports: None Oncologic (Cancer) History: Reports: None Dermatologic History: Reports: None - Infectious Disease History Infectious Disease History: Reports: Chicken Pox - Past Surgical History Head Surgeries/Procedures: Reports: None HEENT Surgical History: Reports: Naso-Sinus Surgery, Other (See Below), Tonsillectomy Other HEENT Surgeries/Procedures: hx sinus surgery x3 Cardiovascular Surgical History: Reports: Other (See Below) Other Cardiovascular Surgeries/Procedures: cardiac cath-no stents placed Respiratory Surgical History: Reports: None GI Surgical History: Reports: Colonoscopy, EGD Male Surgical History: Reports: None Endocrine Surgical History: Reports: None Neurological Surgical History: Reports: None Musculoskeletal Surgical History: Reports: Knee Replacement Other Musculoskeletal Surgeries/Procedures:: hx left total knee arthroplasty, right partial knee replacement Oncologic Surgical History: Reports: None Dermatological Surgical History: Reports: None Social & Family History - Family History Family Medical History: No Pertinent Family History - Tobacco Use Tobacco Use Status *Q: Never Tobacco User Second Hand Smoke Exposure: No - Caffeine Use Caffeine Use: Reports: None - Recreational Drug Use Recreational Drug Use: No H&P Review of Systems - Review of Systems: Review Of Systems: Comprehensive ROS is negative, except as noted in HPI. Exam - Exam Exam: See Below - Vital Signs Vital Signs: Last Vital Signs Temp 36.0 C L 03/08/21 08:49 Pulse 70 03/08/21 12:07 Resp 18 03/08/21 10:15 BP 146/87 H 03/08/21 12:07 Pulse Ox 96 03/08/21 12:07 Weight: 145 kg - Exam General: Alert, Oriented HEENT: Mucosa Moist & [place] Neck: Supple Lungs: Clear to Auscultation, Normal Respiratory Effort Cardiovascular: Regular Rate, Regular Rhythm GI/Abdominal Exam: Normal Bowel Sounds, Soft, Non-Tender Rectal (Males) Exam: Normal Exam, Normal Rectal Tone, Other (no stool). No: Black Stool, Bloody Stool Extremities: Non-Tender, No Pedal Edema Skin: Warm, Dry, Intact - Patient Data Lab Results Last 24 hrs: Laboratory Results - last 24 hr 03/08/21 03/08/21 03/08/21 Range/Units 08:54 08:54 08:54 WBC 9.33 (4.0-11.0) K/uL RBC 5.76 (4.50-5.90) M/uL Hgb 18.3 H (13.0-17.0) g/dL Hct 52.5 H (38.0-50.0) % MCV 91.1 (80.0-98.0) fL MCH 31.8 (27.0-32.0) pg MCHC 34.9 (31.0-37.0) g/dL RDW Std Deviation 43.2 (28.0-62.0) fl RDW Coeff of [place] 13 (11.0-15.0) % Plt Count 216 (150-400) K/uL MPV 11.30 (7.40-12.00) fL Neut % (Auto) 64.2 (48.0-80.0) % Lymph % (Auto) 25.7 (16.0-40.0) % [place] % (Auto) 8.1 (0.0-15.0) % Eos % (Auto) 1.8 (0.0-7.0) % Baso % (Auto) 0.2 (0.0-1.5) % Neut # (Auto) 6.0 H (1.4-5.7) K/uL Lymph # (Auto) 2.4 (0.6-2.4) K/uL [place] # (Auto) 0.8 (0.0-0.8) K/uL Eos # (Auto) 0.2 (0.0-0.7) K/uL Baso # (Auto) 0.0 (0.0-0.1) K/uL Nucleated RBC % 0.0 /100WBC Nucleated RBCs # 0 K/uL INR 1.07 APTT 26.8 (18.6-31.3) SEC D-Dimer, Quantitative 1.98 H (0.0-0.50) mg/L FEU Sodium 137 (136-148) mmol/L Potassium 3.4 L (3.5-5.1) mmol/L Chloride 105 (98-107) mmol/L Carbon Dioxide 26.8 (21.0-32.0) mmol/L BUN 16 (7.0-18.0) mg/dL Creatinine 1.1 (0.8-1.3) mg/dL Est Cr Clr Drug Dosing 82.30 mL/min Estimated GFR (MDRD) > 60.0 ml/min Glucose 164 H (74-106) mg/dL Calcium 8.8 (8.5-10.1) mg/dL Magnesium 1.9 (1.8-2.4) mg/dL Total Bilirubin 1.8 H (0.2-1.0) mg/dL AST 25 (15-37) IU/L ALT 42 (14-63) IU/L Alkaline Phosphatase 129 H (46-116) U/L Troponin I < 0.050 (0.000-0.056) ng/mL B-Natriuretic Peptide (<100) PG/ML Total Protein 7.9 (6.4-8.2) g/dL Albumin 4.0 (3.4-5.0) g/dL Globulin 3.9 (2.6-4.0) g/dL Albumin/Globulin Ratio 1.0 (0.9-1.6) TSH 3rd Generation 1.81 (0.36-3.74) uIU/mL Urine Color Urine Appearance Urine pH (5.0-8.0) Ur Specific [place] (1.001-1.035) Urine Protein (NEGATIVE) mg/dL Urine Glucose (UA) (NEGATIVE) mg/dL Urine Ketones (NEGATIVE) mg/dL Urine Occult Blood (NEGATIVE) Urine Nitrite (NEGATIVE) Urine Bilirubin (NEGATIVE) Urine Urobilinogen (<2.0) EU/dL Ur Leukocyte Esterase (NEGATIVE) Urine RBC (0-2/HPF) Urine WBC (0-5/HPF) Ur Epithelial Cells (NONE-FEW) Urine Bacteria (NEGATIVE) SARS-CoV-2 RNA (MARQUEZ) (NEGATIVE) 03/08/21 03/08/21 03/08/21 Range/Units 08:54 09:05 10:46 WBC (4.0-11.0) K/uL RBC (4.50-5.90) M/uL Hgb (13.0-17.0) g/dL Hct (38.0-50.0) % MCV (80.0-98.0) fL MCH (27.0-32.0) pg MCHC (31.0-37.0) g/dL RDW Std Deviation (28.0-62.0) fl RDW Coeff of [place] (11.0-15.0) % Plt Count (150-400) K/uL MPV (7.40-12.00) fL Neut % (Auto) (48.0-80.0) % Lymph % (Auto) (16.0-40.0) % [place] % (Auto) (0.0-15.0) % Eos % (Auto) (0.0-7.0) % Baso % (Auto) (0.0-1.5) % Neut # (Auto) (1.4-5.7) K/uL Lymph # (Auto) (0.6-2.4) K/uL [place] # (Auto) (0.0-0.8) K/uL Eos # (Auto) (0.0-0.7) K/uL Baso # (Auto) (0.0-0.1) K/uL Nucleated RBC % /100WBC Nucleated RBCs # K/uL INR APTT (18.6-31.3) SEC D-Dimer, Quantitative (0.0-0.50) mg/L FEU Sodium (136-148) mmol/L Potassium (3.5-5.1) mmol/L Chloride (98-107) mmol/L Carbon Dioxide (21.0-32.0) mmol/L BUN (7.0-18.0) mg/dL Creatinine (0.8-1.3) mg/dL Est Cr Clr Drug Dosing mL/min Estimated GFR (MDRD) ml/min Glucose (74-106) mg/dL Calcium (8.5-10.1) mg/dL Magnesium (1.8-2.4) mg/dL Total Bilirubin (0.2-1.0) mg/dL AST (15-37) IU/L ALT (14-63) IU/L Alkaline Phosphatase (46-116) U/L Troponin I (0.000-0.056) ng/mL B-Natriuretic Peptide 45 (<100) PG/ML Total Protein (6.4-8.2) g/dL Albumin (3.4-5.0) g/dL Globulin (2.6-4.0) g/dL Albumin/Globulin Ratio (0.9-1.6) TSH 3rd Generation (0.36-3.74) uIU/mL Urine Color YELLOW Urine Appearance CLEAR Urine pH 7.0 (5.0-8.0) Ur Specific [place] 1.020 (1.001-1.035) Urine Protein NEGATIVE (NEGATIVE) mg/dL Urine Glucose (UA) NEGATIVE (NEGATIVE) mg/dL Urine Ketones NEGATIVE (NEGATIVE) mg/dL Urine Occult Blood NEGATIVE (NEGATIVE) Urine Nitrite NEGATIVE (NEGATIVE) Urine Bilirubin NEGATIVE (NEGATIVE) Urine Urobilinogen 1.0 (<2.0) EU/dL Ur Leukocyte Esterase TRACE H (NEGATIVE) Urine RBC NONE SEEN (0-2/HPF) Urine WBC 0-2 (0-5/HPF) Ur Epithelial Cells RARE (NONE-FEW) Urine Bacteria RARE (NEGATIVE) SARS-CoV-2 RNA (MARQUEZ) NEGATIVE (NEGATIVE) 03/08/21 Range/Units 11:45 WBC (4.0-11.0) K/uL RBC (4.50-5.90) M/uL Hgb (13.0-17.0) g/dL Hct (38.0-50.0) % MCV (80.0-98.0) fL MCH (27.0-32.0) pg MCHC (31.0-37.0) g/dL RDW Std Deviation (28.0-62.0) fl RDW Coeff of [place] (11.0-15.0) % Plt Count (150-400) K/uL MPV (7.40-12.00) fL Neut % (Auto) (48.0-80.0) % Lymph % (Auto) (16.0-40.0) % [place] % (Auto) (0.0-15.0) % Eos % (Auto) (0.0-7.0) % Baso % (Auto) (0.0-1.5) % Neut # (Auto) (1.4-5.7) K/uL Lymph # (Auto) (0.6-2.4) K/uL [place] # (Auto) (0.0-0.8) K/uL Eos # (Auto) (0.0-0.7) K/uL Baso # (Auto) (0.0-0.1) K/uL Nucleated RBC % /100WBC Nucleated RBCs # K/uL INR APTT (18.6-31.3) SEC D-Dimer, Quantitative (0.0-0.50) mg/L FEU Sodium (136-148) mmol/L Potassium (3.5-5.1) mmol/L Chloride (98-107) mmol/L Carbon Dioxide (21.0-32.0) mmol/L BUN (7.0-18.0) mg/dL Creatinine (0.8-1.3) mg/dL Est Cr Clr Drug Dosing mL/min Estimated GFR (MDRD) ml/min Glucose (74-106) mg/dL Calcium (8.5-10.1) mg/dL Magnesium (1.8-2.4) mg/dL Total Bilirubin (0.2-1.0) mg/dL AST (15-37) IU/L ALT (14-63) IU/L Alkaline Phosphatase (46-116) U/L Troponin I < 0.050 (0.000-0.056) ng/mL B-Natriuretic Peptide (<100) PG/ML Total Protein (6.4-8.2) g/dL Albumin (3.4-5.0) g/dL Globulin (2.6-4.0) g/dL Albumin/Globulin Ratio (0.9-1.6) TSH 3rd Generation (0.36-3.74) uIU/mL Urine Color Urine Appearance Urine pH (5.0-8.0) Ur Specific [place] (1.001-1.035) Urine Protein (NEGATIVE) mg/dL Urine Glucose (UA) (NEGATIVE) mg/dL Urine Ketones (NEGATIVE) mg/dL Urine Occult Blood (NEGATIVE) Urine Nitrite (NEGATIVE) Urine Bilirubin (NEGATIVE) Urine Urobilinogen (<2.0) EU/dL Ur Leukocyte Esterase (NEGATIVE) Urine RBC (0-2/HPF) Urine WBC (0-5/HPF) Ur Epithelial Cells (NONE-FEW) Urine Bacteria (NEGATIVE) SARS-CoV-2 RNA (MARQUEZ) (NEGATIVE) Result Diagrams: 03/08/21 08:54 04/10/21 08:54 Sepsis Event Note - Evaluation Sepsis Screening Result: No Definite Risk - Focused Exam Vital Signs: Vital Signs Temp Pulse Resp BP BP Pulse Ox 03/08/21 12:07 70 146/87 H 96 03/08/21 11:13 69 97 03/08/21 10:26 77 125/79 94 L 03/08/21 10:15 80 18 105/76 94 L 03/08/21 09:56 89 113/69 93 L 03/08/21 09:45 87 18 118/66 95 03/08/21 09:15 67 17 131/68 131/68 95 03/08/21 08:49 36.0 C L 108 H 20 174/107 H 96 Problem List Initiated/Reviewed/Updated: Yes Orders Last 24hrs: Active Orders 24 hr Category Date Time Status Patient Status [ADT] Routine ADT 03/08/21 11:35 Active Antiembolic Devices [RC] PER UNIT ROUTINE Care 03/08/21 12:24 Active Cardiac Monitoring [RC] . DIRECTED Care 03/08/21 08:50 Active EKG Documentation Completion [RC] STAT Care 03/08/21 08:50 Active Oxygen Therapy [RC] PRN Care 03/08/21 12:23 Active Pulse Oximetry [RC] ASDIRECTED Care 03/08/21 08:50 Active Up ad [place] [RC] ASDIRECTED Care 03/08/21 12:23 Active VTE/DVT Education [RC] PER UNIT ROUTINE Care 03/08/21 12:23 Active Vital Signs [RC] Q4H Care 03/08/21 12:23 Active Regular Diet [DIET] Diet 03/08/21 Breakfast Active CBC WITH AUTO DIFF [HEME] AM Lab 03/09/21 05:11 Ordered COMPREHENSIVE METABOLIC PN,CMP [CHEM] AM Lab 03/09/21 05:11 Ordered PTT,PARTIAL THROMBOPLSTIN TIME [COAG] Q6H Lab 03/08/21 17:45 Ordered PTT,PARTIAL THROMBOPLSTIN TIME [COAG] Q6H Lab 03/08/21 23:45 Ordered PTT,PARTIAL THROMBOPLSTIN TIME [COAG] Q6H Lab 03/09/21 05:45 Ordered PTT,PARTIAL THROMBOPLSTIN TIME [COAG] Q6H Lab 03/09/21 11:45 Ordered PTT,PARTIAL THROMBOPLSTIN TIME [COAG] Q6H Lab 03/09/21 17:45 Ordered PTT,PARTIAL THROMBOPLSTIN TIME [COAG] Q6H Lab 03/09/21 23:45 Ordered Acetaminophen [TylenoL] Med 03/08/21 12:23 Active 650 mg PO Q4H PRN Fluticasone Propionate [Flonase] Med 03/08/21 12:27 Ordered 1 puff NASBOTH DAILY PRN Heparin Sodium/0.45% NaCl [Heparin 25,000 Units in 1/2 Med 03/08/21 11:30 Active NS 500 ML] 500 ml IV TITRATE Metoprolol Succinate [Toprol XL] Med 03/08/21 21:00 Ordered 100 mg PO BEDTIME Montelukast [Singulair] Med 03/08/21 21:00 Ordered 10 mg PO BEDTIME Omeprazole [Omeprazole] Med 03/08/21 21:00 Ordered 40 mg PO BEDTIME Pravastatin [Pravachol] Med 03/08/21 21:00 Ordered 40 mg PO BEDTIME Sodium Chloride 0.9% [Saline Flush] Med 03/08/21 08:50 Active 10 ml FLUSH ASDIRECTED PRN Sodium Chloride 0.9% [Saline Flush] Med 03/08/21 08:50 Active 2.5 ml FLUSH ASDIRECTED PRN allopurinoL [Zyloprim] Med 03/08/21 21:00 Ordered 100 mg PO BID Saline Lock Insert [OM.PC] Stat Oth 03/08/21 08:50 Ordered Sequential Compression Device [OM.PC] Per Unit Routine Oth 03/08/21 12:24 Ordered Resuscitation Status Routine Resus Stat 03/08/21 12:23 Ordered Medication Orders Acetaminophen (Acetaminophen 325 Mg Tab) 650 mg PO Q4H PRN PRN Reason: Pain (Mild 1-3)/fever Allopurinol (Allopurinol 100 Mg Tab) 100 mg PO BID MAGALI Fluticasone Propionate (Fluticasone Propionate Nasal [place] 16 Gm Bottle) gm NASBOTH DAILY PRN PRN Reason: Allergies Heparin Sodium/Sodium Chloride (Heparin 25,000 Units In 1/2 Ns 500 Ml) 500 mls @ 52.2 mls/hr IV TITRATE MAGALI; Protocol Last Admin: 03/08/21 11:41 Dose: 18 units/kg/hr, 52.2 mls/hr Documented by: NICOLÁS Cosigned by: MATTHEW Metoprolol Succinate (Metoprolol Succinate 50 Mg Tab.Er) 100 mg PO BEDTIME MAGALI Montelukast Sodium (Montelukast 10 Mg Tab) 10 mg PO BEDTIME MAGALI Non-Formulary Medication (Omeprazole [Omeprazole]) 40 mg PO BEDTIME MAGALI Pravastatin Sodium (Pravastatin 40 Mg Tab) 40 mg PO BEDTIME MAGALI Sodium Chloride (Sodium Chloride 0.9% 10 Ml Syringe) 10 ml FLUSH ASDIRECTED PRN PRN Reason: Keep Vein Open Last Admin: 03/08/21 08:58 Dose: 10 ml Documented by: NICOLÁS Sodium Chloride (Sodium Chloride 0.9% 2.5 Ml Syringe) 2.5 ml FLUSH ASDIRECTED PRN PRN Reason: Keep Vein Open Last Admin: 03/08/21 08:58 Dose: 2.5 ml Documented by: NICOLÁS Assessment/Plan Comment:: 55 yo male admitted for pulmonary embolism. Patient had a recent colonoscopy for bright right blood per rectum but no evidence of active bleeding today. We will place on heparin drip for treatment of his PE and monitor overnight. We will place on stool softeners to reduce chances of hemorrhoid bleeding.
[2021-03-08] MEDS ORDERED: Fluticasone Propionate Nasal Spray 16 GM Bottle NASBOTH PRN (13:00)
[2021-03-08] MEDS: Bisacodyl 5 MG Tab PO SCH (13:19)
[2021-03-08] MEDS: Docusate Sodium 100 MG Cap PO SCH (13:19)
[2021-03-08] MEDS ORDERED: Magnesium Sulfate/Water 2 GM/50 ML BAG IV ONE (14:14)
[2021-03-08] MEDS ORDERED: Potassium Chloride 20 MEQ Tab.ER PO ONE (14:14)
[2021-03-08] MEDS: Heparin Sodium/0.45% NaCl 500 ML IV SCH ×2 (20:08→23:40)
[2021-03-08] MEDS: Allopurinol 100 MG Tab PO SCH (20:24)
[2021-03-08] MEDS: Pravastatin 40 MG Tab PO SCH (20:25)
[2021-03-08] MEDS: Montelukast 10 MG Tab PO SCH (20:25)
[2021-03-08] MEDS: Metoprolol Succinate 50 MG Tab.ER PO SCH (20:25)
[2021-03-08] MEDS: Omeprazole 20 MG Cap.CR PO SCH (20:25)
[2021-03-09] MEDS ORDERED: Heparin Sodium 5,000 Units/ML Vial IVPUSH ONE ×2 (00:26→06:28)
[2021-03-09 06:06] LABS: BLOOD UREA NITROGEN,BUN 16 mg/dL (7.0-18.0); CARBON DIOXIDE,CO2 30.6 mmol/L (21.0-32.0); CHLORIDE,CL 107 mmol/L (98-107); GLUCOSE RANDOM 125 mg/dL (74-106); POTASSIUM,K 4.4 mmol/L (3.5-5.1); SODIUM,NA 138 mmol/L (136-148)
[2021-03-09] MEDS: Bisacodyl 5 MG Tab PO SCH (08:43)
[2021-03-09] MEDS: Allopurinol 100 MG Tab PO SCH ×2 (08:44→20:22)
[2021-03-09] MEDS: Docusate Sodium 100 MG Cap PO SCH (08:45)
--- NOTE | 2021-03-09 12:04 | PCM.PN ---
- General Info Date of Service: 03/09/21 Admission Dx/Problem (Free Text): Admission Diagnosis/Problem Admission Diagnosis/Problem Pulmonary embolism Subjective Update: seen at bedside, no acute distress, no chest pain, sob, patient prefers to be on Coumadin vs NOAC upon dc. Functional Status: Reports: Pain Controlled, Tolerating Diet - Review of Systems General: Denies: Fever, Weakness Pulmonary: Denies: Shortness of Breath, Pleuritic Chest Pain Cardiovascular: Denies: Chest Pain, Palpitations Gastrointestinal: Denies: Abdominal Pain, Constipation, Decreased Appetite Genitourinary: Denies: Dysuria, Frequency, Burning Musculoskeletal: Denies: Neck Pain, Shoulder Pain, Arm Pain - Patient Data Vitals - Most Recent: Last Vital Signs Temp 36.4 C 03/09/21 11:59 Pulse 65 03/09/21 11:59 Resp 18 03/09/21 11:59 BP 127/65 03/09/21 11:59 Pulse Ox 97 03/09/21 11:59 Weight - Most Recent: 145 kg I&O - Last 24 Hours: Intake & Output 03/08/21 03/09/21 03/09/21 22:59 06:59 14:59 Intake Total 911 780 Output Total 300 400 Balance 611 380 Lab Results Last 24 Hours: Laboratory Results - last 24 hr 03/08/21 03/08/21 03/08/21 Range/Units 11:45 18:15 23:50 WBC (4.0-11.0) K/uL RBC (4.50-5.90) M/uL Hgb (13.0-17.0) g/dL Hct (38.0-50.0) % MCV (80.0-98.0) fL MCH (27.0-32.0) pg MCHC (31.0-37.0) g/dL RDW Std Deviation (28.0-62.0) fl RDW Coeff of Chata (11.0-15.0) % Plt Count (150-400) K/uL MPV (7.40-12.00) fL Neut % (Auto) (48.0-80.0) % Lymph % (Auto) (16.0-40.0) % [place] % (Auto) (0.0-15.0) % Eos % (Auto) (0.0-7.0) % Baso % (Auto) (0.0-1.5) % Neut # (Auto) (1.4-5.7) K/uL Lymph # (Auto) (0.6-2.4) K/uL [place] # (Auto) (0.0-0.8) K/uL Eos # (Auto) (0.0-0.7) K/uL Baso # (Auto) (0.0-0.1) K/uL Nucleated RBC % /100WBC Nucleated RBCs # K/uL APTT 114.1 H 39.3 H (18.6-31.3) SEC Sodium (136-148) mmol/L Potassium (3.5-5.1) mmol/L Chloride (98-107) mmol/L Carbon Dioxide (21.0-32.0) mmol/L BUN (7.0-18.0) mg/dL Creatinine (0.8-1.3) mg/dL Est Cr Clr Drug Dosing mL/min Estimated GFR (MDRD) ml/min Glucose (74-106) mg/dL Calcium (8.5-10.1) mg/dL Magnesium (1.8-2.4) mg/dL Total Bilirubin (0.2-1.0) mg/dL AST (15-37) IU/L ALT (14-63) IU/L Alkaline Phosphatase (46-116) U/L Troponin I < 0.050 (0.000-0.056) ng/mL Total Protein (6.4-8.2) g/dL Albumin (3.4-5.0) g/dL Globulin (2.6-4.0) g/dL Albumin/Globulin Ratio (0.9-1.6) 03/09/21 03/09/21 03/09/21 Range/Units 05:43 05:43 05:43 WBC 6.19 (4.0-11.0) K/uL RBC 5.32 (4.50-5.90) M/uL Hgb 16.2 (13.0-17.0) g/dL Hct 49.2 (38.0-50.0) % MCV 92.5 (80.0-98.0) fL MCH 30.5 (27.0-32.0) pg MCHC 32.9 (31.0-37.0) g/dL RDW Std Deviation 45.4 (28.0-62.0) fl RDW Coeff of [place] 13 (11.0-15.0) % Plt Count 190 (150-400) K/uL MPV 11.00 (7.40-12.00) fL Neut % (Auto) 57.3 (48.0-80.0) % Lymph % (Auto) 30.4 (16.0-40.0) % [place] % (Auto) 9.4 (0.0-15.0) % Eos % (Auto) 2.6 (0.0-7.0) % Baso % (Auto) 0.3 (0.0-1.5) % Neut # (Auto) 3.6 (1.4-5.7) K/uL Lymph # (Auto) 1.9 (0.6-2.4) K/uL [place] # (Auto) 0.6 (0.0-0.8) K/uL Eos # (Auto) 0.2 (0.0-0.7) K/uL Baso # (Auto) 0.0 (0.0-0.1) K/uL Nucleated RBC % 0.0 /100WBC Nucleated RBCs # 0 K/uL APTT 49.0 H (18.6-31.3) SEC Sodium 138 (136-148) mmol/L Potassium 4.4 (3.5-5.1) mmol/L Chloride 107 (98-107) mmol/L Carbon Dioxide 30.6 (21.0-32.0) mmol/L BUN 16 (7.0-18.0) mg/dL Creatinine 1.0 (0.8-1.3) mg/dL Est Cr Clr Drug Dosing 90.53 mL/min Estimated GFR (MDRD) > 60.0 ml/min Glucose 125 H (74-106) mg/dL Calcium 8.6 (8.5-10.1) mg/dL Magnesium (1.8-2.4) mg/dL Total Bilirubin 1.5 H (0.2-1.0) mg/dL AST 23 (15-37) IU/L ALT 31 (14-63) IU/L Alkaline Phosphatase 99 (46-116) U/L Troponin I (0.000-0.056) ng/mL Total Protein 6.8 (6.4-8.2) g/dL Albumin 3.3 L (3.4-5.0) g/dL Globulin 3.5 (2.6-4.0) g/dL Albumin/Globulin Ratio 0.9 (0.9-1.6) 03/09/21 Range/Units 05:43 WBC (4.0-11.0) K/uL RBC (4.50-5.90) M/uL Hgb (13.0-17.0) g/dL Hct (38.0-50.0) % MCV (80.0-98.0) fL MCH (27.0-32.0) pg MCHC (31.0-37.0) g/dL RDW Std Deviation (28.0-62.0) fl RDW Coeff of [place]ata (11.0-15.0) % Plt Count (150-400) K/uL MPV (7.40-12.00) fL Neut % (Auto) (48.0-80.0) % Lymph % (Auto) (16.0-40.0) % [place] % (Auto) (0.0-15.0) % Eos % (Auto) (0.0-7.0) % Baso % (Auto) (0.0-1.5) % Neut # (Auto) (1.4-5.7) K/uL Lymph # (Auto) (0.6-2.4) K/uL [place] # (Auto) (0.0-0.8) K/uL Eos # (Auto) (0.0-0.7) K/uL Baso # (Auto) (0.0-0.1) K/uL Nucleated RBC % /100WBC Nucleated RBCs # K/uL APTT (18.6-31.3) SEC Sodium (136-148) mmol/L Potassium (3.5-5.1) mmol/L Chloride (98-107) mmol/L Carbon Dioxide (21.0-32.0) mmol/L BUN (7.0-18.0) mg/dL Creatinine (0.8-1.3) mg/dL Est Cr Clr Drug Dosing mL/min Estimated GFR (MDRD) ml/min Glucose (74-106) mg/dL Calcium (8.5-10.1) mg/dL Magnesium 2.3 (1.8-2.4) mg/dL Total Bilirubin (0.2-1.0) mg/dL AST (15-37) IU/L ALT (14-63) IU/L Alkaline Phosphatase (46-116) U/L Troponin I (0.000-0.056) ng/mL Total Protein (6.4-8.2) g/dL Albumin (3.4-5.0) g/dL Globulin (2.6-4.0) g/dL Albumin/Globulin Ratio (0.9-1.6) Med Orders - Current: Current Medications Acetaminophen (Acetaminophen 325 Mg Tab) 650 mg PO Q4H PRN PRN Reason: Pain (Mild 1-3)/fever Allopurinol (Allopurinol 100 Mg Tab) 100 mg PO BID [facility] Last Admin: 03/09/21 08:44 Dose: 100 mg Documented by: Bisacodyl (Bisacodyl 5 Mg Tab) 10 mg PO DAILY [facility] Last Admin: 03/09/21 08:43 Dose: 10 mg Documented by: Docusate Sodium (Docusate Sodium 100 Mg Cap) 100 mg PO DAILY [facility] Last Admin: 03/09/21 08:45 Dose: 100 mg Documented by: Fluticasone Propionate (Fluticasone Propionate Nasal [place] 16 Gm Bottle) 0 gm NASBOTH DAILY PRN PRN Reason: Allergies Heparin Sodium/Sodium Chloride (Heparin 25,000 Units In 1/2 Ns 500 Ml) 500 mls @ 26.1 mls/hr IV TITRATE [facility]ALI; Protocol Last Titration: 03/09/21 06:42 Dose: 13 units/kg/hr, 37.7 mls/hr Documented by: Metoprolol Succinate (Metoprolol Succinate 50 Mg Tab.Er) 100 mg PO BEDTIME [facility] Last Admin: 03/08/21 20:25 Dose: 100 mg Documented by: Montelukast Sodium (Montelukast 10 Mg Tab) 10 mg PO BEDTIME [facility] Last Admin: 03/08/21 20:25 Dose: 10 mg Documented by: Omeprazole (Omeprazole 20 Mg Cap.Cr) 40 mg PO BEDTIME [facility] Last Admin: 03/08/21 20:25 Dose: 40 mg Documented by: Pravastatin Sodium (Pravastatin 40 Mg Tab) 40 mg PO BEDTIME [facility] Last Admin: 03/08/21 20:25 Dose: 40 mg Documented by: Sodium Chloride (Sodium Chloride 0.9% 10 Ml Syringe) 10 ml FLUSH ASDIRECTED PRN PRN Reason: Keep Vein Open Last Admin: 03/08/21 20:27 Dose: 10 ml Documented by: Sodium Chloride (Sodium Chloride 0.9% 2.5 Ml Syringe) 2.5 ml FLUSH ASDIRECTED PRN PRN Reason: Keep Vein Open Last Admin: 03/08/21 08:58 Dose: 2.5 ml Documented by: Warfarin Sodium (Warfarin 5 Mg Tab) 0 mg PO .Pharmacy To Dose MAGALI Discontinued Medications Aspirin (Aspirin 81 Mg Tab.Chew) 324 mg PO ONETIME ONE Stop: 03/08/21 08:51 Last Admin: 03/08/21 08:57 Dose: 243 mg Documented by: Aspirin (Aspirin 81 Mg Tab.Chew) 243 mg PO ONETIME ONE Stop: 03/08/21 08:58 Last Admin: 03/08/21 08:58 Dose: Not Given Documented by: Heparin Sodium (Porcine) (Heparin Sodium 5,000 Units/Ml Vial) 5,000 units I VPUSH ONETIME ONE Stop: 03/08/21 11:34 Last Admin: 03/08/21 11:39 Dose: 5,000 units Documented by: Heparin Sodium (Porcine) (Heparin Sodium 5,000 Units/Ml Vial) 1,500 units IVPUSH .BOLUS ONE Stop: 03/09/21 00:27 Last Admin: 03/09/21 00:52 Dose: 1,500 units Documented by: Heparin Sodium (Porcine) (Heparin Sodium 5,000 Units/Ml Vial) 1,500 units IVPUSH .BOLUS ONE Stop: 03/09/21 06:29 Last Admin: 03/09/21 06:38 Dose: 1,500 units Documented by: Heparin Sodium/Sodium Chloride (Heparin 25,000 Units In 1/2 Ns 500 Ml) 500 mls @ 52.2 mls/hr IV TITRATE MAGALI; Protocol Last Titration: 03/08/21 18:39 Dose: 0 units/kg/hr, 0 mls/hr Documented by: Magnesium Sulfate (Magnesium Sulfate In Water 2 Gm/50 Ml) 2 gm in 50 mls @ 50 mls/hr IV ONETIME ONE Stop: 03/08/21 15:13 Last Admin: 03/08/21 14:57 Dose: 50 mls/hr Documented by: Iopamidol (Iopamidol 755 Mg/Ml 500 Ml Multipack Bottle) 100 ml IVPUSH ONETIME ONE Stop: 03/08/21 10:53 Last Admin: 03/08/21 10:52 Dose: 100 ml Documented by: Nitroglycerin (Nitroglycerin 0.4 Mg Tab.Sl) 0.4 mg SL Q5M PRN PRN Reason: Chest Pain Potassium Chloride (Potassium Chloride 20 Meq Tab.Er) 40 meq PO ONETIME ONE Stop: 03/08/21 14:15 Last Admin: 03/08/21 14:56 Dose: 40 meq Documented by: - Exam General: Alert, Oriented, Cooperative Neck: Supple Lungs: Clear to Auscultation, Normal Respiratory Effort Cardiovascular: Regular Rate, Regular Rhythm GI/Abdominal Exam: Normal Bowel Sounds, Soft, Non-Tender. No: Guarding, Rigid - Patient Data Lab Results Last 24 hrs: Laboratory Results - last 24 hr 03/08/21 03/08/21 03/08/21 Range/Units 11:45 18:15 23:50 WBC (4.0-11.0) K/uL RBC (4.50-5.90) M/uL Hgb (13.0-17.0) g/dL Hct (38.0-50.0) % MCV (80.0-98.0) fL MCH (27.0-32.0) pg MCHC (31.0-37.0) g/dL RDW Std Deviation (28.0-62.0) fl RDW Coeff of [place]ata (11.0-15.0) % Plt Count (150-400) K/uL MPV (7.40-12.00) fL Neut % (Auto) (48.0-80.0) % Lymph % (Auto) (16.0-40.0) % [place] % (Auto) (0.0-15.0) % Eos % (Auto) (0.0-7.0) % Baso % (Auto) (0.0-1.5) % Neut # (Auto) (1.4-5.7) K/uL Lymph # (Auto) (0.6-2.4) K/uL [place] # (Auto) (0.0-0.8) K/uL Eos # (Auto) (0.0-0.7) K/uL Baso # (Auto) (0.0-0.1) K/uL Nucleated RBC % /100WBC Nucleated RBCs # K/uL APTT 114.1 H 39.3 H (18.6-31.3) SEC Sodium (136-148) mmol/L Potassium (3.5-5.1) mmol/L Chloride (98-107) mmol/L Carbon Dioxide (21.0-32.0) mmol/L BUN (7.0-18.0) mg/dL Creatinine (0.8-1.3) mg/dL Est Cr Clr Drug Dosing mL/min Estimated GFR (MDRD) ml/min Glucose (74-106) mg/dL Calcium (8.5-10.1) mg/dL Magnesium (1.8-2.4) mg/dL Total Bilirubin (0.2-1.0) mg/dL AST (15-37) IU/L ALT (14-63) IU/L Alkaline Phosphatase (46-116) U/L Troponin I < 0.050 (0.000-0.056) ng/mL Total Protein (6.4-8.2) g/dL Albumin (3.4-5.0) g/dL Globulin (2.6-4.0) g/dL Albumin/Globulin Ratio (0.9-1.6) 03/09/21 03/09/21 03/09/21 Range/Units 05:43 05:43 05:43 WBC 6.19 (4.0-11.0) K/uL RBC 5.32 (4.50-5.90) M/uL Hgb 16.2 (13.0-17.0) g/dL Hct 49.2 (38.0-50.0) % MCV 92.5 (80.0-98.0) fL MCH 30.5 (27.0-32.0) pg MCHC 32.9 (31.0-37.0) g/dL RDW Std Deviation 45.4 (28.0-62.0) fl RDW Coeff of [place] 13 (11.0-15.0) % Plt Count 190 (150-400) K/uL MPV 11.00 (7.40-12.00) fL Neut % (Auto) 57.3 (48.0-80.0) % Lymph % (Auto) 30.4 (16.0-40.0) % [place] % (Auto) 9.4 (0.0-15.0) % Eos % (Auto) 2.6 (0.0-7.0) % Baso % (Auto) 0.3 (0.0-1.5) % Neut # (Auto) 3.6 (1.4-5.7) K/uL Lymph # (Auto) 1.9 (0.6-2.4) K/uL [place] # (Auto) 0.6 (0.0-0.8) K/uL Eos # (Auto) 0.2 (0.0-0.7) K/uL Baso # (Auto) 0.0 (0.0-0.1) K/uL Nucleated RBC % 0.0 /100WBC Nucleated RBCs # 0 K/uL APTT 49.0 H (18.6-31.3) SEC Sodium 138 (136-148) mmol/L Potassium 4.4 (3.5-5.1) mmol/L Chloride 107 (98-107) mmol/L Carbon Dioxide 30.6 (21.0-32.0) mmol/L BUN 16 (7.0-18.0) mg/dL Creatinine 1.0 (0.8-1.3) mg/dL Est Cr Clr Drug Dosing 90.53 mL/min Estimated GFR (MDRD) > 60.0 ml/min Glucose 125 H (74-106) mg/dL Calcium 8.6 (8.5-10.1) mg/dL Magnesium (1.8-2.4) mg/dL Total Bilirubin 1.5 H (0.2-1.0) mg/dL AST 23 (15-37) IU/L ALT 31 (14-63) IU/L Alkaline Phosphatase 99 (46-116) U/L Troponin I (0.000-0.056) ng/mL Total Protein 6.8 (6.4-8.2) g/dL Albumin 3.3 L (3.4-5.0) g/dL Globulin 3.5 (2.6-4.0) g/dL Albumin/Globulin Ratio 0.9 (0.9-1.6) 03/09/21 Range/Units 05:43 WBC (4.0-11.0) K/uL RBC (4.50-5.90) M/uL Hgb (13.0-17.0) g/dL Hct (38.0-50.0) % MCV (80.0-98.0) fL MCH (27.0-32.0) pg MCHC (31.0-37.0) g/dL RDW Std Deviation (28.0-62.0) fl RDW Coeff of [place] (11.0-15.0) % Plt Count (150-400) K/uL MPV (7.40-12.00) fL Neut % (Auto) (48.0-80.0) % Lymph % (Auto) (16.0-40.0) % [place] % (Auto) (0.0-15.0) % Eos % (Auto) (0.0-7.0) % Baso % (Auto) (0.0-1.5) % Neut # (Auto) (1.4-5.7) K/uL Lymph # (Auto) (0.6-2.4) K/uL [place] # (Auto) (0.0-0.8) K/uL Eos # (Auto) (0.0-0.7) K/uL Baso # (Auto) (0.0-0.1) K/uL Nucleated RBC % /100WBC Nucleated RBCs # K/uL APTT (18.6-31.3) SEC Sodium (136-148) mmol/L Potassium (3.5-5.1) mmol/L Chloride (98-107) mmol/L Carbon Dioxide (21.0-32.0) mmol/L BUN (7.0-18.0) mg/dL Creatinine (0.8-1.3) mg/dL Est Cr Clr Drug Dosing mL/min Estimated GFR (MDRD) ml/min Glucose (74-106) mg/dL Calcium (8.5-10.1) mg/dL Magnesium 2.3 (1.8-2.4) mg/dL Total Bilirubin (0.2-1.0) mg/dL AST (15-37) IU/L ALT (14-63) IU/L Alkaline Phosphatase (46-116) U/L Troponin I (0.000-0.056) ng/mL Total Protein (6.4-8.2) g/dL Albumin (3.4-5.0) g/dL Globulin (2.6-4.0) g/dL Albumin/Globulin Ratio (0.9-1.6) Result Diagrams: 03/09/21 05:43 03/09/21 05:43 Sepsis Event Note - Evaluation Sepsis Screening Result: No Definite Risk - Focused Exam Vital Signs: Vital Signs Temp Pulse Resp BP Pulse Ox 03/09/21 11:59 36.4 C 65 18 127/65 97 03/09/21 07:55 36.6 C 61 17 109/45 L 96 03/09/21 04:20 36.7 C 61 16 130/75 93 L - Problem List & Annotations (1) Gout SNOMED Code(s): 09003925 Code(s): M10.9 - GOUT, UNSPECIFIED Status: Acute Current Visit: Yes (2) CAD (coronary artery disease) SNOMED Code(s): 19978182 Code(s): I25.10 - ATHSCL HEART DISEASE OF [place] CORONARY ARTERY W/O ANG PCTRS Status: Acute Current Visit: Yes (3) Pulmonary embolism SNOMED Code(s): 98831627 Code(s): I26.99 - OTHER PULMONARY EMBOLISM WITHOUT ACUTE COR PULMONALE Status: Acute Current Visit: Yes Qualifiers: Pulmonary embolism type: single subsegmental (without acute cor pulmonale) Qualified Code(s): I26.93 - Single subsegmental pulmonary embolism without acute cor pulmonale (4) Unilateral primary osteoarthritis, right knee SNOMED Code(s): 577705107719279, 801911996436589 Code(s): M17.11 - UNILATERAL PRIMARY OSTEOARTHRITIS, RIGHT KNEE Status: Acute Current Visit: No - Problem List Review Problem List Initiated/Reviewed/Updated: Yes - My Orders Last 24 Hours: My Active Orders 03/09/21 12:02 INR,PT,PROTHROMBIN TIME [COAG] Routine 03/09/21 21:00 Warfarin [Coumadin] See Dose Instructions PO .Pharmacy To Dose 03/10/21 05:11 INR,PT,PROTHROMBIN TIME [COAG] AM - Plan Plan:: 55 yo male admitted for pulmonary embolism. cont Heparin gtt, tolerating well, no bleeding episodes Bridge with Coumadin tonight trned INR daily We will place on stool softeners to reduce chances of hemorrhoid bleeding. Possible dc tomorrow
[2021-03-09] MEDS: Heparin Sodium/0.45% NaCl 500 ML IV SCH (13:02)
[2021-03-09] MEDS ORDERED: Warfarin 10 MG Tab PO SCH (14:00)
[2021-03-09] MEDS: Montelukast 10 MG Tab PO SCH (20:21)
[2021-03-09] MEDS: Metoprolol Succinate 50 MG Tab.ER PO SCH (20:21)
[2021-03-09] MEDS: Omeprazole 20 MG Cap.CR PO SCH (20:22)
[2021-03-09] MEDS: Pravastatin 40 MG Tab PO SCH (20:22)
[2021-03-10] MEDS: Heparin Sodium/0.45% NaCl 500 ML IV SCH (02:21)
[2021-03-10 06:07] LABS: BLOOD UREA NITROGEN,BUN 17 mg/dL (7.0-18.0); CARBON DIOXIDE,CO2 30.8 mmol/L (21.0-32.0); CHLORIDE,CL 106 mmol/L (98-107); GLUCOSE RANDOM 114 mg/dL (74-106); POTASSIUM,K 4.4 mmol/L (3.5-5.1); SODIUM,NA 142 mmol/L (136-148)
[2021-03-10] MEDS: Docusate Sodium 100 MG Cap PO SCH (08:16)
[2021-03-10] MEDS: Allopurinol 100 MG Tab PO SCH (08:16)
[2021-03-10] MEDS: Bisacodyl 5 MG Tab PO SCH (08:16)
[2021-03-10] MEDS ORDERED: Enoxaparin 150 MG/1 ML Syringe SUBCUT SCH (10:15)
[2021-03-10 11:33] VITALS: BP 102/62; PULSE 72
--- NOTE | 2021-03-10 12:12 | PCM.DCSUM1 ---
Discharge Summary - Hospital Course Free Text/Narrative:: 55 yo male with pmh of osteoarthritis, gout, nonobstructive CAD, and internal hemorrhoids who presented with one week of shortness of breath, right sided chest pain and palpitations. Patient reports that he sometimes has difficulty walking across the room. Patient is a truck drive and makes local deliveries. He had a colonoscopy three days ago. He reports intermittent bright red blood per rectum when he wipes that worsens with hard stool. Patient's colonoscopy revealed a coon polyp and mild proctitis and internal hemorrhoids. Troponin was negative, ekg unremarkable for ischemic changes, CTA chest showed acute PE in right lower lung ( posterior basal segment), patient was started on heparin gtt for PE, eventually patient was started on Coumadin. Patient was keen on discharge so he was discharged home on SubCut Lovenox and warfarin till his INR is therapeutic, patient was given script to recheck INR in 2 days and follow up with her pcp to manage the dose and duration of the Coumadin there after. Diagnosis: Stroke: No - Discharge Data Discharge Date: 03/10/21 Discharge Disposition: Home, Self-Care 01 Condition: Fair - Referral to Home Health Primary Care Physician: José Miguel Ness MD - Discharge Diagnosis/Problem(s) (1) Gout SNOMED Code(s): 52996549 ICD Code: M10.9 - GOUT, UNSPECIFIED Status: Acute (2) CAD (coronary artery disease) SNOMED Code(s): 07546850 ICD Code: I25.10 - ATHSCL HEART DISEASE OF [place] CORONARY ARTERY W/O ANG PCTRS Status: Acute (3) Pulmonary embolism SNOMED Code(s): 57895683 ICD Code: I26.99 - OTHER PULMONARY EMBOLISM WITHOUT ACUTE COR PULMONALE Status: Acute Qualifiers: Pulmonary embolism type: single subsegmental (without acute cor pulmonale) Qualified Code(s): I26.93 - Single subsegmental pulmonary embolism without acute cor pulmonale (4) Unilateral primary osteoarthritis, right knee SNOMED Code(s): 030748411178571, 346544082005622 ICD Code: M17.11 - UNILATERAL PRIMARY OSTEOARTHRITIS, RIGHT KNEE Status: Acute - Discharge Plan *PRESCRIPTION DRUG MONITORING PROGRAM REVIEWED*: Not Applicable *COPY OF PRESCRIPTION DRUG MONITORING REPORT IN PATIENT DOUGLAS: Not Applicable Prescriptions/Med Rec: Warfarin [Coumadin] 10 mg PO DAILY 15 Days #30 tab Enoxaparin [Lovenox] 150 mg SUBCUT Q12H 5 Days #10 syringe Home Medications: Home Meds Pravastatin Sodium [Pravastatin (Pravachol)] 40 mg PO BEDTIME 09/03/14 [History] Fluticasone Propionate [Flonase] 1 puff NASBOTH DAILY PRN 09/05/14 [History] Allopurinol [Zyloprim] 100 mg PO BID 03/16/16 [History] Montelukast Sodium 10 mg PO BEDTIME 07/20/17 [History] Metoprolol Succinate 100 mg PO BEDTIME 07/26/17 [History] Aspirin [[place] Aspirin EC] 81 mg PO DAILY 09/30/17 [History] Omeprazole 40 mg PO BEDTIME 09/30/17 [History] Multivitamin [Multivitamins] 1 tab PO DAILY 01/18/20 [History] Echinacea [Echinacea Herb] 1 tab PO DAILY 02/27/21 [History] Dickson-3/DHA/Epa/Fish Oil [Fish Oil 1,000 mg Softgel] 1 tab PO DAILY 02/27/21 [History] Ubidecarenone [Coq-10] 1 tab PO DAILY 02/27/21 [History] Enoxaparin [Lovenox] 150 mg SUBCUT Q12H 5 Days #10 syringe 03/10/21 [Rx] Warfarin [Coumadin] 10 mg PO DAILY 15 Days #30 tab 03/10/21 [Rx] Patient Handouts: Enoxaparin injection, Warfarin tablets, Pulmonary Embolism, Subcutaneous Injection Instructions Using a Prefilled Syringe Referrals: José Miguel Ness MD [Primary Care Provider] - 03/17/21 10:30 am - Discharge Summary/Plan Comment DC Time >30 min.: No - Patient Data Vitals - Most Recent: Last Vital Signs Temp 36.2 C 03/10/21 11:15 Pulse 72 03/10/21 11:15 Resp 17 03/10/21 11:15 BP 102/62 03/10/21 11:15 Pulse Ox 96 03/10/21 11:15 Weight - Most Recent: 145 kg I&O - Last 24 hours: Intake & Output 03/09/21 03/10/21 03/10/21 22:59 06:59 14:59 Intake Total 800 1135 300 Output Total 550 730 Balance 250 405 300 Lab Results - Last 24 hrs: Laboratory Results - last 24 hr 03/09/21 03/09/21 03/09/21 Range/Units 12:03 12:03 17:54 WBC (4.0-11.0) K/uL RBC (4.50-5.90) M/uL Hgb (13.0-17.0) g/dL Hct (38.0-50.0) % MCV (80.0-98.0) fL MCH (27.0-32.0) pg MCHC (31.0-37.0) g/dL RDW Std Deviation (28.0-62.0) fl RDW Coeff of Chata (11.0-15.0) % Plt Count (150-400) K/uL MPV (7.40-12.00) fL Neut % (Auto) (48.0-80.0) % Lymph % (Auto) (16.0-40.0) % [place] % (Auto) (0.0-15.0) % Eos % (Auto) (0.0-7.0) % Baso % (Auto) (0.0-1.5) % Neut # (Auto) (1.4-5.7) K/uL Lymph # (Auto) (0.6-2.4) K/uL [place] # (Auto) (0.0-0.8) K/uL Eos # (Auto) (0.0-0.7) K/uL Baso # (Auto) (0.0-0.1) K/uL Nucleated RBC % /100WBC Nucleated RBCs # K/uL INR 1.07 APTT 57.2 H 54.0 H (18.6-31.3) SEC Sodium (136-148) mmol/L Potassium (3.5-5.1) mmol/L Chloride (98-107) mmol/L Carbon Dioxide (21.0-32.0) mmol/L BUN (7.0-18.0) mg/dL Creatinine (0.8-1.3) mg/dL Est Cr Clr Drug Dosing mL/min Estimated GFR (MDRD) ml/min Glucose (74-106) mg/dL Calcium (8.5-10.1) mg/dL Phosphorus (2.6-4.7) mg/dL Magnesium (1.8-2.4) mg/dL 03/10/21 03/10/21 03/10/21 Range/Units 05:43 05:43 05:43 WBC 6.57 (4.0-11.0) K/uL RBC 5.29 (4.50-5.90) M/uL Hgb 16.3 (13.0-17.0) g/dL Hct 48.8 (38.0-50.0) % MCV 92.2 (80.0-98.0) fL MCH 30.8 (27.0-32.0) pg MCHC 33.4 (31.0-37.0) g/dL RDW Std Deviation 44.4 (28.0-62.0) fl RDW Coeff of Chata 13 (11.0-15.0) % Plt Count 187 (150-400) K/uL MPV 11.20 (7.40-12.00) fL Neut % (Auto) 56.1 (48.0-80.0) % Lymph % (Auto) 31.4 (16.0-40.0) % [place] % (Auto) 9.0 (0.0-15.0) % Eos % (Auto) 3.2 (0.0-7.0) % Baso % (Auto) 0.3 (0.0-1.5) % Neut # (Auto) 3.7 (1.4-5.7) K/uL Lymph # (Auto) 2.1 (0.6-2.4) K/uL [place] # (Auto) 0.6 (0.0-0.8) K/uL Eos # (Auto) 0.2 (0.0-0.7) K/uL Baso # (Auto) 0.0 (0.0-0.1) K/uL Nucleated RBC % 0.0 /100WBC Nucleated RBCs # 0 K/uL INR 1.17 APTT (18.6-31.3) SEC Sodium 142 (136-148) mmol/L Potassium 4.4 (3.5-5.1) mmol/L Chloride 106 (98-107) mmol/L Carbon Dioxide 30.8 (21.0-32.0) mmol/L BUN 17 (7.0-18.0) mg/dL Creatinine 1.0 (0.8-1.3) mg/dL Est Cr Clr Drug Dosing 90.53 mL/min Estimated GFR (MDRD) > 60.0 ml/min Glucose 114 H (74-106) mg/dL Calcium 8.8 (8.5-10.1) mg/dL Phosphorus 4.1 (2.6-4.7) mg/dL Magnesium 2.1 (1.8-2.4) mg/dL 03/10/21 Range/Units 05:43 WBC (4.0-11.0) K/uL RBC (4.50-5.90) M/uL Hgb (13.0-17.0) g/dL Hct (38.0-50.0) % MCV (80.0-98.0) fL MCH (27.0-32.0) pg MCHC (31.0-37.0) g/dL RDW Std Deviation (28.0-62.0) fl RDW Coeff of Chata (11.0-15.0) % Plt Count (150-400) K/uL MPV (7.40-12.00) fL Neut % (Auto) (48.0-80.0) % Lymph % (Auto) (16.0-40.0) % [place] % (Auto) (0.0-15.0) % Eos % (Auto) (0.0-7.0) % Baso % (Auto) (0.0-1.5) % Neut # (Auto) (1.4-5.7) K/uL Lymph # (Auto) (0.6-2.4) K/uL [place] # (Auto) (0.0-0.8) K/uL Eos # (Auto) (0.0-0.7) K/uL Baso # (Auto) (0.0-0.1) K/uL Nucleated RBC % /100WBC Nucleated RBCs # K/uL INR APTT 63.0 H (18.6-31.3) SEC Sodium (136-148) mmol/L Potassium (3.5-5.1) mmol/L Chloride (98-107) mmol/L Carbon Dioxide (21.0-32.0) mmol/L BUN (7.0-18.0) mg/dL Creatinine (0.8-1.3) mg/dL Est Cr Clr Drug Dosing mL/min Estimated GFR (MDRD) ml/min Glucose (74-106) mg/dL Calcium (8.5-10.1) mg/dL Phosphorus (2.6-4.7) mg/dL Magnesium (1.8-2.4) mg/dL Med Orders - Current: Current Medications Acetaminophen (Acetaminophen 325 Mg Tab) 650 mg PO Q4H PRN PRN Reason: Pain (Mild 1-3)/fever Allopurinol (Allopurinol 100 Mg Tab) 100 mg PO BID [facility] Last Admin: 03/10/21 08:16 Dose: 100 mg Documented by: Bisacodyl (Bisacodyl 5 Mg Tab) 10 mg PO DAILY [facility] Last Admin: 03/10/21 08:16 Dose: 10 mg Documented by: Docusate Sodium (Docusate Sodium 100 Mg Cap) 100 mg PO DAILY [facility] Last Admin: 03/10/21 08:16 Dose: 100 mg Documented by: Enoxaparin Sodium (Enoxaparin 150 Mg/1 Ml Syringe) 150 mg SUBCUT Q12H [facility] Last Admin: 03/10/21 10:24 Dose: 150 mg Documented by: Fluticasone Propionate (Fluticasone Propionate Nasal [place] 16 Gm Bottle) 0 gm NASBOTH DAILY PRN PRN Reason: Allergies Metoprolol Succinate (Metoprolol Succinate 50 Mg Tab.Er) 100 mg PO BEDTIME [facility] Last Admin: 03/09/21 20:21 Dose: 100 mg Documented by: Montelukast Sodium (Montelukast 10 Mg Tab) 10 mg PO BEDTIME [facility] Last Admin: 03/09/21 20:21 Dose: 10 mg Documented by: Omeprazole (Omeprazole 20 Mg Cap.Cr) 40 mg PO BEDTIME [facility] Last Admin: 03/09/21 20:22 Dose: 40 mg Documented by: Pravastatin Sodium (Pravastatin 40 Mg Tab) 40 mg PO BEDTIME [facility] Last Admin: 03/09/21 20:22 Dose: 40 mg Documented by: Sodium Chloride (Sodium Chloride 0.9% 10 Ml Syringe) 10 ml FLUSH ASDIRECTED PRN PRN Reason: Keep Vein Open Last Admin: 03/08/21 20:27 Dose: 10 ml Documented by: Sodium Chloride (Sodium Chloride 0.9% 2.5 Ml Syringe) 2.5 ml FLUSH ASDIRECTED PRN PRN Reason: Keep Vein Open Last Admin: 03/08/21 08:58 Dose: 2.5 ml Documented by: Warfarin Sodium (Warfarin Ask Dosing) 1 each PO DAILY@1400 [facility] Last Admin: 03/09/21 14:40 Dose: Not Given Documented by: Warfarin Sodium (Warfarin 10 Mg Tab) 10 mg PO DAILY@1400 [facility] Stop: 03/10/21 15:00 Discontinued Medications Aspirin (Aspirin 81 Mg Tab.Chew) 324 mg PO ONETIME ONE Stop: 03/08/21 08:51 Last Admin: 03/08/21 08:57 Dose: 243 mg Documented by: Aspirin (Aspirin 81 Mg Tab.Chew) 243 mg PO ONETIME ONE Stop: 03/08/21 08:58 Last Admin: 03/08/21 08:58 Dose: Not Given Documented by: Heparin Sodium (Porcine) (Heparin Sodium 5,000 Units/Ml Vial) 5,000 units IVPUSH ONETIME ONE Stop: 03/08/21 11:34 Last Admin: 03/08/21 11:39 Dose: 5,000 units Documented by: Heparin Sodium (Porcine) (Heparin Sodium 5,000 Units/Ml Vial) 1,500 units IVPUSH .BOLUS ONE Stop: 03/09/21 00:27 Last Admin: 03/09/21 00:52 Dose: 1,500 units Documented by: Heparin Sodium (Porcine) (Heparin Sodium 5,000 Units/Ml Vial) 1,500 units IVPUSH .BOLUS ONE Stop: 03/09/21 06:29 Last Admin: 03/09/21 06:38 Dose: 1,500 units Documented by: Heparin Sodium/Sodium Chloride (Heparin 25,000 Units In 1/2 Ns 500 Ml) 500 mls @ 52.2 mls/hr IV TITRATE [facility]; Protocol Last Titration: 03/08/21 18:39 Dose: 0 units/kg/hr, 0 mls/hr Documented by: Magnesium Sulfate (Magnesium Sulfate In Water 2 Gm/50 Ml) 2 gm in 50 mls @ 50 mls/hr IV ONETIME ONE Stop: 03/08/21 15:13 Last Admin: 03/08/21 14:57 Dose: 50 mls/hr Documented by: Heparin Sodium/Sodium Chloride (Heparin 25,000 Units In 1/2 Ns 500 Ml) 500 mls @ 26.1 mls/hr IV TITRATE MAGALI; Protocol Last Admin: 03/10/21 02:21 Dose: 13 units/kg/hr, 37.7 mls/hr Documented by: Iopamidol (Iopamidol 755 Mg/Ml 500 Ml Multipack Bottle) 100 ml IVPUSH ONETIME ONE Stop: 03/08/21 10:53 Last Admin: 03/08/21 10:52 Dose: 100 ml Documented by: Nitroglycerin (Nitroglycerin 0.4 Mg Tab.Sl) 0.4 mg SL Q5M PRN PRN Reason: Chest Pain Potassium Chloride (Potassium Chloride 20 Meq Tab.Er) 40 meq PO ONETIME ONE Stop: 03/08/21 14:15 Last Admin: 03/08/21 14:56 Dose: 40 meq Documented by: Warfarin Sodium (Warfarin 10 Mg Tab) 10 mg PO DAILY@1400 MAGALI Stop: 03/09/21 15:00 Last Admin: 03/09/21 14:40 Dose: 10 mg Documented by:
[2021-03-10] MEDS ORDERED: Warfarin 10 MG Tab PO SCH (14:00)
== END 2021-03-10 14:27 | disposition home or self-care (01) | DRG 134 ==
LOC: MW.ED 08:44 → MW.MS 11:35 → UNDOADMIN 12:00
PROVIDERS: ADMIT Internal Medicine; ATTEND Internal Medicine
DX: I26.93 Single subsegmental thrombotic pulmonary embolism without acute cor pulmonale (principal); M10.9 Gout, unspecified; I25.10 Atherosclerotic heart disease of native coronary artery without angina pectoris; M17.11 Unilateral primary osteoarthritis, right knee; M19.90 Unspecified osteoarthritis, unspecified site; K64.8 Other hemorrhoids; K63.5 Polyp of colon; K62.89 Other specified diseases of anus and rectum; J30.9 Allergic rhinitis, unspecified; E78.00 Pure hypercholesterolemia, unspecified; G47.30 Sleep apnea, unspecified; K21.9 Gastro-esophageal reflux disease without esophagitis; E66.9 Obesity, unspecified; H54.7 Unspecified visual loss; Z20.822 Contact with and (suspected) exposure to COVID-19; Z96.651 Presence of right artificial knee joint; Z79.01 Long term (current) use of anticoagulants; Z79.82 Long term (current) use of aspirin; Z79.899 Other long term (current) drug therapy; Z88.1 Allergy status to other antibiotic agents; Z90.89 Acquired absence of other organs; Z68.41 Body mass index [BMI] 40.0-44.9, adult
CPT/HCPCS: 36415; 71045; 71045-26; 71275; 71275-26; 80048; 80053; 81001; 83735; 83880; 84100; 84443; 84484; 85025; 85379; 85610; 85730; 93005; 93010; 99222; 99232; 99238; 99284; 99285-25; A9270-GY; J1644; J1650; J3475; Q9967; U0002

== ENCOUNTER 2021-10-14 12:52 | Emergency (ER) | payer BC ==
--- NOTE | 2021-10-14 13:50 | PCM.EKG ---
#1 Interpretation EKG Date: 10/14/21 Time: 13:43 Rhythm: NSR Rate (Beats/Min): 89 ST-T: Normal
--- NOTE | 2021-10-14 14:22 | EDM.PDOC ---
ED HPI GENERAL MEDICAL PROBLEM - General Chief Complaint: Respiratory Problem Stated Complaint: shortness of breath Time Seen by Provider: 10/14/21 12:53 Source of Information: Reports: Patient History Limitations: Reports: No Limitations - History of Present Illness INITIAL COMMENTS - FREE TEXT/NARRATIVE: Patient is a 56-year-old male who presents today for chest pain. Patient had a chest pain for the past 2 months but states it is getting more frequent he has chest pain with heavy exertion himself. Patient is complaining of slight chest pain at rest but not radiating and is not like his normal chest pain. Denies any shortness of breath currently but when he does exert himself he is short of breath. He has no lower extremity swelling nausea vomiting fever chills or other complaints. He had a stress test done back in August but a gasoline truck operator here did show some possible reversible myocardial ischemia he is scheduled to see gasoline truck operator next week. Left Chest Pain Score (Numeric/FACES): 4 - Related Data Allergies Allergy/AdvReac Type Severity Reaction Status Date / Time amoxicillin [From Augmentin] Allergy Diarrhea Verified 10/14/21 13:34 clavulanic acid Allergy Diarrhea Verified 10/14/21 13:34 [From Augmentin] Home Meds: Home Meds Pravastatin Sodium [Pravastatin (Pravachol)] 40 mg PO BEDTIME 09/03/14 [History] Allopurinol [Zyloprim] 100 mg PO BID 03/16/16 [History] Metoprolol Succinate 100 mg PO BEDTIME 07/26/17 [History] Aspirin [[place] Aspirin EC] 81 mg PO DAILY 09/30/17 [History] Warfarin [Coumadin] 10 mg PO DAILY 15 Days #30 tab 03/10/21 [Rx] Past Medical History HEENT History: Reports: Allergic Rhinitis, Other (See Below) Other HEENT History: wears glasses Cardiovascular History: Reports: Arrhythmia, High Cholesterol, Hypertension Respiratory History: Reports: Sleep Apnea Other Respiratory History: uses CPAP Gastrointestinal History: Reports: Colon Polyp, GERD Genitourinary History: Reports: None Musculoskeletal History: Reports: Osteoarthritis Other Musculoskeletal History: rt knee pain Neurological History: Reports: None Psychiatric History: Reports: None Endocrine/Metabolic History: Reports: Obesity/BMI 30+ Hematologic History: Reports: None Immunologic History: Reports: None Oncologic (Cancer) History: Reports: None Dermatologic History: Reports: None - Infectious Disease History Infectious Disease History: Reports: Chicken Pox - Past Surgical History Head Surgeries/Procedures: Reports: None HEENT Surgical History: Reports: Naso-Sinus Surgery, Other (See Below), Tonsillectomy Other HEENT Surgeries/Procedures: hx sinus surgery x3 Cardiovascular Surgical History: Reports: Other (See Below) Other Cardiovascular Surgeries/Procedures: cardiac cath-no stents placed Respiratory Surgical History: Reports: None GI Surgical History: Reports: Colonoscopy, EGD Male Surgical History: Reports: None Endocrine Surgical History: Reports: None Neurological Surgical History: Reports: None Musculoskeletal Surgical History: Reports: Knee Replacement Other Musculoskeletal Surgeries/Procedures:: hx left total knee arthroplasty, right partial knee replacement Oncologic Surgical History: Reports: None Dermatological Surgical History: Reports: None Social & Family History - Family History Family Medical History: No Pertinent Family History - Tobacco Use Tobacco Use Status *Q: Never Tobacco User - Caffeine Use Caffeine Use: Reports: None - Recreational Drug Use Recreational Drug Use: No ED ROS GENERAL - Review of Systems Review Of Systems: See Below Constitutional: Reports: No Symptoms HEENT: Reports: No Symptoms Respiratory: Reports: No Symptoms Cardiovascular: Reports: Chest Pain Endocrine: Reports: No Symptoms GI/Abdominal: Reports: No Symptoms : Reports: No Symptoms Musculoskeletal: Reports: No Symptoms Skin: Reports: No Symptoms Neurological: Reports: No Symptoms Psychiatric: Reports: No Symptoms Hematologic/Lymphatic: Reports: No Symptoms Immunologic: Reports: No Symptoms ED EXAM, GENERAL - Physical Exam Exam: See Below Exam Limited By: No Limitations General Appearance: Alert, WD/WN, No Apparent Distress Eye Exam: Bilateral Eye: EOMI, PERRL Throat/Mouth: Normal Inspection Head: Atraumatic, Normocephalic Neck: Normal Inspection Respiratory/Chest: No Respiratory Distress, Lungs Clear, Normal Breath Sounds Cardiovascular: Normal Peripheral Pulses, Regular Rate, Rhythm GI/Abdominal: Normal Bowel Sounds, Soft, Non-Tender Extremities: Normal Inspection, Normal Range of Motion Neurological: Alert, Oriented, Normal Cognition, Normal Gait Course - Vital Signs Last Recorded V/S: Last Vital Signs Temp 96.3 F L 10/14/21 13:36 Pulse 66 10/14/21 13:36 Resp 16 10/14/21 13:36 BP 114/75 10/14/21 13:36 Pulse Ox 97 10/14/21 13:36 - Orders/Labs/Meds Labs: Laboratory Tests 10/14/21 10/14/21 10/14/21 Range/Units 14:00 14:05 14:05 WBC 8.88 (4.0-11.0) K/uL RBC 5.24 (4.50-5.90) M/uL Hgb 16.3 (13.0-17.0) g/dL Hct 47.0 (38.0-50.0) % MCV 89.7 (80.0-98.0) fL MCH 31.1 (27.0-32.0) pg MCHC 34.7 (31.0-37.0) g/dL RDW Std Deviation 42.1 (28.0-62.0) fl RDW Coeff of Chata 13 (11.0-15.0) % Plt Count 224 (150-400) K/uL MPV 11.00 (7.40-12.00) fL Neut % (Auto) 69.2 (48.0-80.0) % Lymph % (Auto) 22.3 (16.0-40.0) % Story % (Auto) 6.9 (0.0-15.0) % Eos % (Auto) 1.4 (0.0-7.0) % Baso % (Auto) 0.2 (0.0-1.5) % Neut # (Auto) 6.2 H (1.4-5.7) K/uL Lymph # (Auto) 2.0 (0.6-2.4) K/uL Story # (Auto) 0.6 (0.0-0.8) K/uL Eos # (Auto) 0.1 (0.0-0.7) K/uL Baso # (Auto) 0.0 (0.0-0.1) K/uL Nucleated RBC % 0.0 /100WBC Nucleated RBCs # 0 K/uL Sodium 141 (136-148) mmol/L Potassium 3.8 (3.5-5.1) mmol/L Chloride 107 (98-107) mmol/L Carbon Dioxide 27.3 (21.0-32.0) mmol/L BUN 16 (7.0-18.0) mg/dL Creatinine 0.9 (0.8-1.3) mg/dL Est Cr Clr Drug Dosing 99.40 mL/min Estimated GFR (MDRD) > 60.0 ml/min Glucose 163 H (74-106) mg/dL Calcium 8.3 L (8.5-10.1) mg/dL Total Bilirubin 0.9 (0.2-1.0) mg/dL AST 17 (15-37) IU/L ALT 16 (14-63) IU/L Alkaline Phosphatase 110 (46-116) U/L Troponin I < 0.050 (0.000-0.056) ng/mL Total Protein 7.2 (6.4-8.2) g/dL Albumin 3.4 (3.4-5.0) g/dL Globulin 3.8 (2.6-4.0) g/dL Albumin/Globulin Ratio 0.9 (0.9-1.6) Lipase 125 (73-393) U/L Influenza Type A RNA NEGATIVE (NEGATIVE) Influenza Type B RNA NEGATIVE (NEGATIVE) SARS-CoV-2 RNA (MARQUEZ) NEGATIVE (NEGATIVE) 10/14/21 Range/Units 16:14 WBC (4.0-11.0) K/uL RBC (4.50-5.90) M/uL Hgb (13.0-17.0) g/dL Hct (38.0-50.0) % MCV (80.0-98.0) fL MCH (27.0-32.0) pg MCHC (31.0-37.0) g/dL RDW Std Deviation (28.0-62.0) fl RDW Coeff of Chata (11.0-15.0) % Plt Count (150-400) K/uL MPV (7.40-12.00) fL Neut % (Auto) (48.0-80.0) % Lymph % (Auto) (16.0-40.0) % Story % (Auto) (0.0-15.0) % Eos % (Auto) (0.0-7.0) % Baso % (Auto) (0.0-1.5) % Neut # (Auto) (1.4-5.7) K/uL Lymph # (Auto) (0.6-2.4) K/uL Story # (Auto) (0.0-0.8) K/uL Eos # (Auto) (0.0-0.7) K/uL Baso # (Auto) (0.0-0.1) K/uL Nucleated RBC % /100WBC Nucleated RBCs # K/uL Sodium (136-148) mmol/L Potassium (3.5-5.1) mmol/L Chloride (98-107) mmol/L Carbon Dioxide (21.0-32.0) mmol/L BUN (7.0-18.0) mg/dL Creatinine (0.8-1.3) mg/dL Est Cr Clr Drug Dosing mL/min Estimated GFR (MDRD) ml/min Glucose (74-106) mg/dL Calcium (8.5-10.1) mg/dL Total Bilirubin (0.2-1.0) mg/dL AST (15-37) IU/L ALT (14-63) IU/L Alkaline Phosphatase (46-116) U/L Troponin I < 0.050 (0.000-0.056) ng/mL Total Protein (6.4-8.2) g/dL Albumin (3.4-5.0) g/dL Globulin (2.6-4.0) g/dL Albumin/Globulin Ratio (0.9-1.6) Lipase (73-393) U/L Influenza Type A RNA (NEGATIVE) Influenza Type B RNA (NEGATIVE) SARS-CoV-2 RNA (MARQUEZ) (NEGATIVE) - Re-Assessments/Exams Free Text/Narrative Re-Assessment/Exam: 10/14/21 17:00 Patient tropes negative x2 patient chest pain improved. Will speak to patient's gasoline truck operator and [place] if patient stable will be discharged. 10/14/21 17:05 To the gasoline truck operator on-call for Dr. Clark and Dr. Anders states that patient can be sent home with nitro and still follow-up on Wednesday as planned no need to be transferred today. Departure - Departure Time of Disposition: 17:01 Disposition: Home, Self-Care 01 Condition: Good Clinical Impression: Chest pain - Discharge Information *PRESCRIPTION DRUG MONITORING PROGRAM REVIEWED*: Not Applicable *COPY OF PRESCRIPTION DRUG MONITORING REPORT IN PATIENT DOUGLAS: Not Applicable Instructions: Nonspecific Chest Pain, Adult Referrals: José Miguel Ness MD [Primary Care Provider] - Forms: ED Department Discharge Additional Instructions: You were seen today for chest pain. You have this chest pain for some time now. You had a stress test about 3 weeks ago did show to have some wall ischemia and you may need to see a specialist. You are scheduled to see a gasoline truck operator this Wednesday. We spoke to them and they stated you agree to follow-up still that day. If you have any increased pain or other concerning signs or symptoms please return to the ED immediately. The following information is given to patients seen in the emergency department who are being discharged to home. This information is to outline your options for follow-up care. We provide all patients seen in our emergency department with a follow-up referral. The need for follow-up, as well as the timing and circumstances, are variable depending upon the specifics of your emergency department visit. If you don't have a primary care physician on staff, we will provide you with a referral. We always advise you to contact your personal physician following an emergency department visit to inform them of the circumstance of the visit and for follow-up with them and/or the need for any referrals to a consulting spec ialist. The emergency department will also refer you to a specialist when appropriate. This referral assures that you have the opportunity for follow-up care with a specialist. All of these measure are taken in an effort to provide you with optimal care, which includes your follow-up. Under all circumstances we always encourage you to contact your private physician who remains a resource for coordinating your care. When calling for follow-up care, please make the office aware that this follow-up is from your recent emergency room visit. If for any reason you are refused follow-up, please contact the [facility] Emergency Department at and asked to speak to the emergency department charge nurse. Please follow up with your primary care physician. If you do not have a primary care physician, see below: [facility] [address] [place] [id number] [facility] [address] [place] [address] Sepsis Event Note (ED) - Evaluation Sepsis Screening Result: No Definite Risk - Focused Exam Vital Signs: Vital Signs Temp Pulse Resp BP Pulse Ox 10/14/21 13:36 96.3 F L 66 16 114/75 97 - Assessment/Plan Plan: Patient is a 56-year-old male who presents today for chest pain for the past few months patient had a stress test done back in August that shows no reversible m yocardial ischemia. Patient has a heart score of 5 we will obtain labs EKG and likely reassess.
[2021-10-14 14:43] LABS: BLOOD UREA NITROGEN,BUN 16 mg/dL (7.0-18.0); CARBON DIOXIDE,CO2 27.3 mmol/L (21.0-32.0); CHLORIDE,CL 107 mmol/L (98-107); GLUCOSE RANDOM 163 mg/dL (74-106); LIPASE 125 U/L (73-393); POTASSIUM,K 3.8 mmol/L (3.5-5.1); SODIUM,NA 141 mmol/L (136-148)
[2021-10-14 14:50] LABS: CORONAVIRUS COVID-19 NAA NEGATIVE (NEGATIVE); INFLUENZA A NAA NEGATIVE (NEGATIVE); INFLUENZA B NAA NEGATIVE (NEGATIVE)
--- NOTE | 2021-10-14 15:49 | CR ---
INDICATION: chest pain/sob TECHNIQUE: Chest 2 views. COMPARISON: 03/08/21 FINDINGS: Cardiovascular and mediastinum: Heart size and vasculature are normal in caliber and appearance. Mediastinum is within normal limits. Lungs and pleural spaces: Lungs are clear. No sign of infiltrate or mass. No sign of pleural effusion. No pneumothorax. Bones and soft tissues: No significant findings. IMPRESSION: Unremarkable chest. Dictated by: Wiley Rosas MD @ 10/14/2021 15:47:38 (Electronically Signed)
[2021-10-14 17:10] VITALS: BP 116/69; PULSE 61
== END 2021-10-14 17:18 | disposition home or self-care (01) ==
LOC: MW.ED 12:52
DX: R07.9 Chest pain, unspecified (principal); E78.00 Pure hypercholesterolemia, unspecified; I10 Essential (primary) hypertension; K21.9 Gastro-esophageal reflux disease without esophagitis; E66.9 Obesity, unspecified; Z68.41 Body mass index [BMI] 40.0-44.9, adult; Z88.0 Allergy status to penicillin; Z79.82 Long term (current) use of aspirin; Z79.01 Long term (current) use of anticoagulants; Z20.822 Contact with and (suspected) exposure to COVID-19
CPT/HCPCS: 0240U; 36415; 71046; 80053; 83690; 84484; 85025; 99285

== ENCOUNTER 2022-02-20 17:55 | Emergency (ER) | payer BC ==
[2022-02-20 18:38] VITALS: BP 120/67; PULSE 69
== END 2022-02-20 20:59 | disposition home or self-care (01) ==
LOC: MW.ED 17:55
DX: M96.831 Postprocedural hemorrhage of a musculoskeletal structure following other procedure (principal); E78.00 Pure hypercholesterolemia, unspecified; I10 Essential (primary) hypertension; Z88.0 Allergy status to penicillin; Z79.82 Long term (current) use of aspirin; Z79.01 Long term (current) use of anticoagulants; Z79.899 Other long term (current) drug therapy
CPT/HCPCS: 36415; 73562-26-RT; 73562-RT; 85025; 85610; 99283

== ENCOUNTER 2022-04-06 07:02 | Emergency (ER) | payer BC ==
[2022-04-06 08:12] LABS: BLOOD UREA NITROGEN,BUN 25 mg/dL (7.0-18.0); CARBON DIOXIDE,CO2 28.3 mmol/L (21.0-32.0); CHLORIDE,CL 105 mmol/L (98-107); GLUCOSE RANDOM 112 mg/dL (74-106); SODIUM,NA 142 mmol/L (136-148)
[2022-04-06] MEDS ORDERED: Magnesium Citrate Solution 296 ML Bottle PO STA (08:14)
[2022-04-06] MEDS ORDERED: Lactated Ringers 1,000 ML IV STA (08:17)
[2022-04-06 15:15] VITALS: BP 137/63; PULSE 54
== END 2022-04-06 14:46 | disposition home or self-care (01) ==
LOC: MW.ED 07:02
DX: K64.9 Unspecified hemorrhoids (principal); K59.00 Constipation, unspecified; K21.9 Gastro-esophageal reflux disease without esophagitis; I10 Essential (primary) hypertension; E66.9 Obesity, unspecified; Z68.41 Body mass index [BMI] 40.0-44.9, adult; Z88.1 Allergy status to other antibiotic agents; Z79.899 Other long term (current) drug therapy; Z79.82 Long term (current) use of aspirin; Z79.01 Long term (current) use of anticoagulants; Z88.0 Allergy status to penicillin
CPT/HCPCS: 36415; 74019; 80053; 81003; 85025; 99284; A9270; J7120

== ENCOUNTER 2022-04-28 16:07 | Inpatient (IN) | payer BC ==
[2022-04-28] MEDS ORDERED: Phytonadione 10 MG in Sodium Chloride 0.9% 50 ML IV ONE ×2 (17:10→17:30)
[2022-04-28 17:20] LABS: BLOOD UREA NITROGEN,BUN 19 mg/dL (7.0-18.0); CARBON DIOXIDE,CO2 25.1 mmol/L (21.0-32.0); CHLORIDE,CL 104 mmol/L (98-107); GLUCOSE RANDOM 114 mg/dL (74-106); POTASSIUM,K 3.7 mmol/L (3.5-5.1); SODIUM,NA 140 mmol/L (136-148)
[2022-04-28 17:25] LABS: ESTIMATED GFR > 60.0 ml/min
[2022-04-28] MEDS ORDERED: HUM PROTHROMBIN CPLX INJECT ONE (17:30)
[2022-04-28] MEDS ORDERED: WATER FOR INJECTION INJECT ONE (17:30)
[2022-04-28] MEDS ORDERED: STERILE INJECT ONE (17:30)
[2022-04-28] MEDS ORDERED: [UNRECOGNIZED DRUG - OTHER] INJECT ONE (17:30)
[2022-04-28] MEDS ORDERED: Iopamidol 755 MG/ML 500 ML Multipack Bottle IVPUSH STA (18:43)
[2022-04-29] MEDS: Pantoprazole 40 MG in Sodium Chloride 0.9% 10 ML IVPUSH SCH ×3 (01:28→23:14)
[2022-04-29 07:18] LABS: BLOOD UREA NITROGEN,BUN 14 mg/dL (7.0-18.0); CHLORIDE,CL 105 mmol/L (98-107); GLUCOSE RANDOM 92 mg/dL (74-106); POTASSIUM,K 3.6 mmol/L (3.5-5.1); SODIUM,NA 140 mmol/L (136-148)
[2022-04-29 07:19] LABS: ESTIMATED GFR > 60.0 ml/min
[2022-04-29] MEDS ORDERED: ferumoxytoL 510 MG in Sodium Chloride 0.9% 100 ML IV SCH (08:45)
[2022-04-29] MEDS ORDERED: Docusate Sodium 100 MG Cap PO PRN (15:37)
[2022-04-29] MEDS: Polyethylene Glycol 3350 Powder 17 GM Packet PO PRN (16:46)
[2022-04-30 06:01] LABS: BLOOD UREA NITROGEN,BUN 12 mg/dL (7.0-18.0); CARBON DIOXIDE,CO2 29.1 mmol/L (21.0-32.0); CHLORIDE,CL 106 mmol/L (98-107); GLUCOSE RANDOM 100 mg/dL (74-106); POTASSIUM,K 3.8 mmol/L (3.5-5.1); SODIUM,NA 142 mmol/L (136-148)
[2022-04-30 06:02] LABS: ESTIMATED GFR > 60.0 ml/min
[2022-04-30] MEDS: Polyethylene Glycol 3350 Powder 17 GM Packet PO PRN (08:06)
[2022-04-30] MEDS ORDERED: Warfarin 5 MG Tab PO SCH (08:30)
[2022-04-30] MEDS: Pantoprazole 40 MG in Sodium Chloride 0.9% 10 ML IVPUSH SCH (11:33)
[2022-04-30 11:46] VITALS: BP 124/71; PULSE 100
[2022-05-01] MEDS ORDERED: Warfarin 5 MG Tab PO SCH (08:30)
== END 2022-04-30 12:55 | disposition home or self-care (01) | DRG 663 ==
LOC: MW.ED 16:07 → MW.MS 20:33
PROVIDERS: ADMIT Internal Medicine; ATTEND Internal Medicine
PROC: 30233N1 Transfusion of Nonautologous Red Blood Cells into Peripheral Vein, Percutaneous Approach (ICD-10-PCS; principal; 2022-04-28)
PROC: 0DBV3ZX Excision of Mesentery, Percutaneous Approach, Diagnostic (ICD-10-PCS; 2022-04-29)
DX: D64.9 Anemia, unspecified (principal); K92.2 Gastrointestinal hemorrhage, unspecified; R59.1 Generalized enlarged lymph nodes; K63.89 Other specified diseases of intestine; I25.10 Atherosclerotic heart disease of native coronary artery without angina pectoris; I10 Essential (primary) hypertension; K21.9 Gastro-esophageal reflux disease without esophagitis; M19.90 Unspecified osteoarthritis, unspecified site; I49.9 Cardiac arrhythmia, unspecified; M10.9 Gout, unspecified; E78.00 Pure hypercholesterolemia, unspecified; E66.9 Obesity, unspecified; H54.7 Unspecified visual loss; G47.30 Sleep apnea, unspecified; Z96.659 Presence of unspecified artificial knee joint; Z96.653 Presence of artificial knee joint, bilateral; Z20.822 Contact with and (suspected) exposure to COVID-19; Z86.711 Personal history of pulmonary embolism; Z79.01 Long term (current) use of anticoagulants; Z79.899 Other long term (current) drug therapy; Z88.1 Allergy status to other antibiotic agents; Z86.010 Personal history of colon polyps; Z90.89 Acquired absence of other organs; Z68.38 Body mass index [BMI] 38.0-38.9, adult; C83.30 Diffuse large B-cell lymphoma, unspecified site
CPT/HCPCS: 36415; 36430; 49180; 74178; 74178-26; 77012; 77012-26; 80053; 82728; 83540; 83605; 83735; 84100; 84484; 85014; 85018; 85025; 85027; 85045; 85610; 85730; 86850; 86900; 86901; 86920; 93005; 93010; 99221; 99232; 99239; 99284; A9270-GY; C9113; J3430; J3490; J7168; P9016; Q0138; Q9967; U0002

== ENCOUNTER 2022-05-25 09:48 | Emergency (ER) | payer BC ==
[2022-05-25] MEDS ORDERED: Magnesium Sulfate/Water 2 GM in Premix Bag 1 BAG IV ONE (09:50)
[2022-05-25 20:51] VITALS: BP 134/75; PULSE 99
== END 2022-05-25 13:25 ==
LOC: MW.ED 09:48
DX: D64.9 Anemia, unspecified (principal); C85.10 Unspecified B-cell lymphoma, unspecified site; I48.91 Unspecified atrial fibrillation; E78.00 Pure hypercholesterolemia, unspecified; I10 Essential (primary) hypertension; K21.9 Gastro-esophageal reflux disease without esophagitis; E66.9 Obesity, unspecified; Z68.38 Body mass index [BMI] 38.0-38.9, adult; Z88.0 Allergy status to penicillin; Z88.1 Allergy status to other antibiotic agents; Z79.82 Long term (current) use of aspirin
CPT/HCPCS: 36415; 36430; 83615; 84550; 86850; 86900; 86901; 86920; 96365; 96366; 99284; J3475; P9016; 99285

== ENCOUNTER → 2022-05-25 | Day surgery (SDC) | payer BC ==
[~2022-05-25] MED LIST changes: +Albuterol 0.083% 2.5 MG/3 ML Neb Soln NEB PRN; +Bupivacaine 0.5% 10 ML SDV ONE; +Dexmedetomidine 200 MCG/2 ML SDV ONE; +HYDROmorphone 1 MG/ML Syringe IVPUSH PRN; +Heparin Sodium 100 Units/ML 3 ML Syringe ONE; +Iopamidol 408 MG/ML 20 ML SDV ONE; +Lidocaine 1% 20 ML MDV ONE; +Metoclopramide 10 MG/2 ML SDV IVPUSH PRN; +Morphine 2 MG/ML SYRINGE IVPUSH PRN; +Naloxone 0.4 MG/ML SDV IVPUSH PRN; +Ondansetron 4 MG/2 ML SDV IVPUSH PRN; +Propofol 200 MG/20 ML SDV ONE; +Sodium Chloride 0.9% 10 ML Syringe FLUSH PRN; +Sodium Chloride 0.9% 2.5 ML Syringe FLUSH PRN; +Sodium Chloride 0.9% 20 ML SDV IV PRN; +ceFAZolin 2 GM in Premix Bag 1 BAG IV ONE; +fentaNYL 100 MCG/2 ML SDV ONE; +fentaNYL 50 MCG/ML SDV IVPUSH PRN
[2022-05-25 06:48] VITALS: BP 123/59; PULSE 105
[2022-05-25 08:48] LABS: CARBON DIOXIDE,CO2 31.1 mmol/L (21.0-32.0); POTASSIUM,K 4.1 mmol/L (3.5-5.1)
== END ==
LOC: MW.SDS 06:15
PROVIDERS: ATTEND Surgery
DX: C83.30 Diffuse large B-cell lymphoma, unspecified site (principal); E78.00 Pure hypercholesterolemia, unspecified; K21.9 Gastro-esophageal reflux disease without esophagitis; I10 Essential (primary) hypertension; I48.91 Unspecified atrial fibrillation; E66.9 Obesity, unspecified; G47.33 Obstructive sleep apnea (adult) (pediatric); Z68.38 Body mass index [BMI] 38.0-38.9, adult; Z86.711 Personal history of pulmonary embolism; Z79.01 Long term (current) use of anticoagulants; Z88.0 Allergy status to penicillin; Z88.1 Allergy status to other antibiotic agents; Z53.09 Procedure and treatment not carried out because of other contraindication; Z20.822 Contact with and (suspected) exposure to COVID-19
CPT/HCPCS: 36415; 80053; 83735; 84100; 85027; 85610; 87635; J7120; J1642; J2704; J3010; J3490; Q9966; U0002

== ENCOUNTER 2022-06-18 05:57 | Emergency (ER) | payer BC ==
[2022-06-18] MEDS ORDERED: Ondansetron 4 MG/2 ML SDV IVPUSH ONE ×2 (06:08→11:17)
[2022-06-18] MEDS ORDERED: Famotidine 20 MG/2 ML SDV IVPUSH ONE (06:08)
[2022-06-18] MEDS ORDERED: Sodium Chloride 0.9% 1,000 ML IV ONE (06:08)
[2022-06-18] MEDS ORDERED: Alum Hydro/Mag Hydro/Simeth XS 15 ML, Lidocaine 2% 5 ML PO ONE ×2 (06:09)
[2022-06-18 07:00] LABS: CARBON DIOXIDE,CO2 28.1 mmol/L (21.0-32.0); POTASSIUM,K 3.6 mmol/L (3.5-5.1)
[2022-06-18] MEDS ORDERED: Aluminum Hydroxide/Magnesium Hydroxide/Simethicone XS Susp 30 ML Cup PO ONE (08:57)
[2022-06-18] MEDS ORDERED: Iopamidol 755 MG/ML 500 ML Multipack Bottle IVPUSH STA (10:43)
[2022-06-18] MEDS ORDERED: Lactated Ringers 1,000 ML IV ONE (11:16)
[2022-06-18] MEDS ORDERED: Aspirin 81 MG Tab.Chew PO ONE (11:17)
[2022-06-18 16:27] VITALS: BP 155/81; PULSE 86
== END 2022-06-18 16:39 ==
LOC: MW.ED 05:57
DX: K56.699 Other intestinal obstruction unspecified as to partial versus complete obstruction (principal); I10 Essential (primary) hypertension; E66.9 Obesity, unspecified; Z68.35 Body mass index [BMI] 35.0-35.9, adult; Z88.1 Allergy status to other antibiotic agents; Z79.899 Other long term (current) drug therapy; Z79.82 Long term (current) use of aspirin; Z79.01 Long term (current) use of anticoagulants; Z20.822 Contact with and (suspected) exposure to COVID-19
CPT/HCPCS: 36415; 71045; 71260; 74177; 80053; 81001; 83690; 83735; 84484; 85025; 85379; 85652; 87635; 93005; 96361; 96374; 96375; 96376; 99285; A9270; J2405; J3490; J7030; J7120; Q9967; 93010; 99283; U0002

== ENCOUNTER 2022-07-20 17:42 | Emergency (ER) | payer BC ==
[2022-07-20 19:42] LABS: BLOOD UREA NITROGEN,BUN 17 mg/dL (7.0-18.0); CARBON DIOXIDE,CO2 29.2 mmol/L (21.0-32.0); CHLORIDE,CL 103 mmol/L (98-107); GLUCOSE RANDOM 143 mg/dL (74-106); LIPASE 80 U/L (73-393); POTASSIUM,K 3.8 mmol/L (3.5-5.1); SODIUM,NA 142 mmol/L (136-148)
[2022-07-20 19:49] LABS: ESTIMATED GFR 78 mL/min (>60)
[2022-07-20 22:51] VITALS: BP 94/55; PULSE 102
== END 2022-07-20 21:54 | disposition home or self-care (01) ==
LOC: MW.ED 17:42
DX: S36.69XA Other injury of rectum, initial encounter (principal); K59.00 Constipation, unspecified; E66.9 Obesity, unspecified; Z68.30 Body mass index [BMI] 30.0-30.9, adult; Z88.1 Allergy status to other antibiotic agents; Z79.899 Other long term (current) drug therapy; Z79.82 Long term (current) use of aspirin; Z79.01 Long term (current) use of anticoagulants
CPT/HCPCS: 36415; 80053; 83690; 85025; 85610; 99283

== ENCOUNTER 2022-11-26 07:19 | Day surgery (SDC) | payer BC ==
[~2022-11-26 07:19] MED LIST changes: -Albuterol 0.083% 2.5 MG/3 ML Neb Soln NEB PRN; -Bupivacaine 0.5% 10 ML SDV ONE; -Dexmedetomidine 200 MCG/2 ML SDV ONE; -HYDROmorphone 1 MG/ML Syringe IVPUSH PRN; -Iopamidol 408 MG/ML 20 ML SDV ONE; -Lidocaine 1% 20 ML MDV ONE; -Metoclopramide 10 MG/2 ML SDV IVPUSH PRN; -Morphine 2 MG/ML SYRINGE IVPUSH PRN; -Naloxone 0.4 MG/ML SDV IVPUSH PRN; -Ondansetron 4 MG/2 ML SDV IVPUSH PRN; -Propofol 200 MG/20 ML SDV ONE; -ceFAZolin 2 GM in Premix Bag 1 BAG IV ONE; -fentaNYL 100 MCG/2 ML SDV ONE; -fentaNYL 50 MCG/ML SDV IVPUSH PRN
[2022-11-26] MEDS ORDERED: Propofol 200 MG/20 ML SDV ONE (07:48)
[2022-11-26] MEDS ORDERED: Lidocaine 2% 5 ML SDV ONE ×2 (07:48)
[2022-11-26] MEDS ORDERED: Heparin Sodium 10 Units/ML 5 ML Syringe FLUSH ONE (08:30)
[2022-11-26 10:34] VITALS: BP 108/59; PULSE 73
== END 2022-11-26 10:12 | disposition home or self-care (01) ==
LOC: MW.SDS 07:19
PROVIDERS: ATTEND Surgery
DX: K31.89 Other diseases of stomach and duodenum (principal); K29.50 Unspecified chronic gastritis without bleeding; K31.A0 Gastric intestinal metaplasia, unspecified; J30.9 Allergic rhinitis, unspecified; K21.9 Gastro-esophageal reflux disease without esophagitis; E78.00 Pure hypercholesterolemia, unspecified; I10 Essential (primary) hypertension; G47.33 Obstructive sleep apnea (adult) (pediatric); E66.9 Obesity, unspecified; R73.03 Prediabetes; M19.90 Unspecified osteoarthritis, unspecified site; Z85.72 Personal history of non-Hodgkin lymphomas; Z88.0 Allergy status to penicillin; Z88.1 Allergy status to other antibiotic agents; Z79.899 Other long term (current) drug therapy; Z79.82 Long term (current) use of aspirin; Z98.890 Other specified postprocedural states; Z68.34 Body mass index [BMI] 34.0-34.9, adult
CPT/HCPCS: 43239; J1642; J2704; J7120; 00731

== ENCOUNTER 2023-03-15 09:37 | Emergency (ER) | payer BC ==
[2023-03-15] MEDS ORDERED: Sodium Chloride 0.9% 2.5 ML Syringe FLUSH PRN (09:50)
[2023-03-15] MEDS ORDERED: Sodium Chloride 0.9% 10 ML Syringe FLUSH PRN (09:50)
[2023-03-15 11:27] LABS: CARBON DIOXIDE,CO2 27.6 mmol/L (21.0-32.0); POTASSIUM,K 3.9 mmol/L (3.5-5.1)
[2023-03-15] MEDS ORDERED: Iopamidol 755 MG/ML 500 ML Multipack Bottle IVPUSH STA (12:06)
[2023-03-15] MEDS ORDERED: Furosemide 40 MG/4 ML VIAL IVPUSH ONE (12:17)
[2023-03-15 13:28] VITALS: BP 116/70; PULSE 73
== END 2023-03-15 13:27 | disposition home or self-care (01) ==
LOC: MW.ED 09:37
DX: E87.70 Fluid overload, unspecified (principal); E78.00 Pure hypercholesterolemia, unspecified; M19.90 Unspecified osteoarthritis, unspecified site; E66.9 Obesity, unspecified; Z68.34 Body mass index [BMI] 34.0-34.9, adult; Z88.0 Allergy status to penicillin; Z88.1 Allergy status to other antibiotic agents; Z79.82 Long term (current) use of aspirin; Z79.899 Other long term (current) drug therapy
CPT/HCPCS: 36415; 71045; 71275; 80053; 83735; 83880; 84443; 84484; 85025; 85379; 85610; 85730; 93005; 96374; 99285; J1642; J1940; J3490; Q9967; 93010; 99284

== ENCOUNTER 2023-04-16 09:58 | Day surgery (SDC) | payer BC ==
[~2023-04-16 09:58] MED LIST changes: -Heparin Sodium 100 Units/ML 3 ML Syringe ONE
[2023-04-16] MEDS ORDERED: fentaNYL 100 MCG/2 ML SDV ONE (11:03)
[2023-04-16] MEDS ORDERED: Lidocaine 2% 5 ML SDV ONE (11:03)
[2023-04-16] MEDS ORDERED: propofoL 50 ML ONE (11:24)
[2023-04-16 12:36] VITALS: PULSE 66
[2023-04-16 12:51] VITALS: BP 110/71
== END 2023-04-16 13:00 | disposition home or self-care (01) ==
LOC: MW.SDS 09:58
PROVIDERS: ATTEND Surgery
DX: Z12.11 Encounter for screening for malignant neoplasm of colon (principal); D64.9 Anemia, unspecified; K21.9 Gastro-esophageal reflux disease without esophagitis; E78.00 Pure hypercholesterolemia, unspecified; I10 Essential (primary) hypertension; G47.33 Obstructive sleep apnea (adult) (pediatric); E66.9 Obesity, unspecified; Z68.35 Body mass index [BMI] 35.0-35.9, adult; Z88.1 Allergy status to other antibiotic agents; Z79.82 Long term (current) use of aspirin; Z79.899 Other long term (current) drug therapy; Z86.010 Personal history of colon polyps; Z86.711 Personal history of pulmonary embolism; Z90.09 Acquired absence of other part of head and neck; Z96.653 Presence of artificial knee joint, bilateral
CPT/HCPCS: 45378; J2704; J3010; J7120; J3490

== ENCOUNTER 2024-02-28 15:07 | Emergency (ER) | payer BC ==
[2024-02-29 11:38] VITALS: BP 107/67; PULSE 71
== END 2024-02-28 17:07 | disposition home or self-care (01) ==
LOC: MW.ED 15:07
DX: M79.662 Pain in left lower leg (principal); E78.00 Pure hypercholesterolemia, unspecified; I10 Essential (primary) hypertension; K21.9 Gastro-esophageal reflux disease without esophagitis; E66.9 Obesity, unspecified; Z79.899 Other long term (current) drug therapy; Z68.37 Body mass index [BMI] 37.0-37.9, adult
CPT/HCPCS: 93971-26-LT; 93971-LT; 99282; 99283

== ENCOUNTER 2024-03-11 06:36 | Emergency (ER) | payer BC ==
[2024-03-11] MEDS: traMADol 50 MG Tab PO ONE (08:24)
[2024-03-11 10:01] VITALS: BP 93/61; PULSE 50
[2024-03-11] MEDS: Ketorolac 30 MG/ML SDV IM ONE (10:01)
== END 2024-03-11 10:12 | disposition home or self-care (01) ==
LOC: MW.ED 06:36
DX: M25.562 Pain in left knee (principal); I10 Essential (primary) hypertension; E78.00 Pure hypercholesterolemia, unspecified; K21.9 Gastro-esophageal reflux disease without esophagitis; E66.9 Obesity, unspecified; Z79.899 Other long term (current) drug therapy; Z79.82 Long term (current) use of aspirin; Z88.0 Allergy status to penicillin; Z88.1 Allergy status to other antibiotic agents; Z88.8 Allergy status to other drugs, medicaments and biological substances; Z75.8 Other problems related to medical facilities and other health care; Z68.36 Body mass index [BMI] 36.0-36.9, adult
CPT/HCPCS: 73562; 96372; 99283; A9270; J1885

== ENCOUNTER 2025-01-03 15:25 | Observation (INO) | payer BC ==
[2025-01-03] MEDS: Sodium Chloride 0.9% 1,000 ML IV ONE ×2 (16:25→21:04)
[2025-01-03] MEDS: Ondansetron 4 MG/2 ML SDV IVPUSH ONE (16:25)
[2025-01-03 16:43] LABS: BASOPHILS ABSOLUTE AUTO 0.04 K/uL (0.00-0.20); BASOPHILS PERCENT AUTO 0.4 % (0.0-1.0); EOSINOPHILS ABSOLUTE AUTO 0.14 K/uL (0.00-0.45); EOSINOPHILS PERCENT AUTO 1.3 % (0.0-6.0); HEMATOCRIT 50.8 % (42.0-52.0); HEMOGLOBIN 17.5 g/dL (14.0-18.0); IMMATURE GRAN ABSOLUTE AUTO 0.03 K/uL (0.00-0.05); IMMATURE GRAN PERCENT AUTO 0.3 % (0.0-0.4); LYMPHOCYTES ABSOLUTE AUTO 1.61 K/uL (1.00-4.80); LYMPHOCYTES PERCENT AUTO 15.4 % (24.0-44.0); MEAN CORPUSCULAR HEMOGLOBIN 29.9 pg (28.0-32.0); MEAN CORPUSCULAR HGB CONC 34.4 g/dL (32.0-36.0); MEAN CORPUSCULAR VOLUME 86.7 fL (83.0-99.0); MEAN PLATELET VOLUME 10.6 fL (9.4-12.4); MONOCYTES ABSOLUTE AUTO 0.68 K/uL (0.00-0.80); MONOCYTES PERCENT AUTO 6.5 % (0.0-8.0); NEUTROPHILS ABSOLUTE AUTO 7.98 K/uL (1.80-7.70); NEUTROPHILS PERCENT AUTO 76.1 % (41.0-71.0); PLATELET COUNT,PLT 202 K/uL (150-400); RED BLOOD CELL COUNT 5.86 M/uL (4.52-5.90); WHITE BLOOD CELL COUNT,WBC 10.48 K/uL (3.9-11.3)
[2025-01-03 17:21] LABS: A/G RATIO 1.1 (0.9-1.6); ALBUMIN 3.7 g/dL (3.4-5.0); BILIRUBIN TOTAL 1.5 mg/dL (0.2-1.0); CARBON DIOXIDE,CO2 27.6 mmol/L (21.0-32.0); CREATININE 0.9 mg/dL (0.8-1.3); EST CRCL DRUG DOSING (CG) 95.8 mL/min; PROTEIN TOTAL,TP 7.1 g/dL (6.4-8.2)
[2025-01-03 18:13] LABS: APPEARANCE,URINE CLEAR; BILIRUBIN,URINE NEGATIVE (NEGATIVE); COLOR,URINE YELLOW; GLUCOSE,URINE >1000 mg/dL (NEGATIVE); KETONES,URINE 5 mg/dL (NEGATIVE); OCCULT BLOOD,URINE TRACE (NEGATIVE); PROTEIN,URINE NEGATIVE (NEGATIVE)
[2025-01-03 18:14] LABS: BACTERIA,URINE RARE (NEGATIVE); EPITHELIAL CELLS,URINE RARE (NONE-FEW); LEUKOCYTE ESTERASE,URINE NEGATIVE (NEGATIVE); NITRITE,URINE NEGATIVE (NEGATIVE); RBC,URINE 0-1 (0-2/HPF); UROBILINOGEN,URINE 0.2 EU/dL (<2.0); WBC,URINE 0-1 (0-5/HPF)
[2025-01-03] MEDS: Iopamidol 755 Mg/ML 100 ML Bottle IVPUSH ONE (18:25)
[2025-01-03 18:57] LABS: HEMOGLOBIN A1C 5.6 %
[2025-01-03] MEDS: Promethazine 25 MG/ML SDV IM ONE (20:02)
[2025-01-03] MEDS: Benzocaine 20% Topical Spray UD MUCMEM ONE (20:53)
[2025-01-03] MEDS ORDERED: Albuterol/Ipratropium 3.0-0.5 MG/3 ML Neb Soln NEB PRN (21:14)
[2025-01-03] MEDS ORDERED: Ondansetron 4 MG/2 ML SDV IVPUSH PRN (21:14)
[2025-01-03] MEDS ORDERED: Morphine 2 MG/ML SYRINGE IVPUSH PRN (21:14)
[2025-01-03] MEDS ORDERED: Naloxone 0.4 MG/ML SDV IVPUSH PRN (21:14)
[2025-01-03] MEDS ORDERED: Acetaminophen 325 MG Tab PO PRN (21:14)
[2025-01-03] MEDS ORDERED: Melatonin 3 MG Tab PO PRN (21:14)
[2025-01-03] MEDS ORDERED: Polyethylene Glycol 3350 Powder 17 GM Packet PO PRN (21:14)
[2025-01-03] MEDS ORDERED: Sodium Chloride 0.9% 1,000 ML IV SCH (21:15)
[2025-01-03] MEDS: Pantoprazole 40 MG in Sodium Chloride 0.9% 10 ML IVPUSH SCH (22:53)
[2025-01-04 05:57] LABS: HEMATOCRIT 48.3 % (42.0-52.0); HEMOGLOBIN 16.1 g/dL (14.0-18.0); MEAN CORPUSCULAR HEMOGLOBIN 29.5 pg (28.0-32.0); MEAN CORPUSCULAR HGB CONC 33.3 g/dL (32.0-36.0); MEAN CORPUSCULAR VOLUME 88.5 fL (83.0-99.0); MEAN PLATELET VOLUME 10.8 fL (9.4-12.4); PLATELET COUNT,PLT 174 K/uL (150-400); RED BLOOD CELL COUNT 5.46 M/uL (4.52-5.90); WHITE BLOOD CELL COUNT,WBC 7.08 K/uL (3.9-11.3)
[2025-01-04 06:18] LABS: CALCIUM 8.4 mg/dL (8.5-10.1); CARBON DIOXIDE,CO2 26.1 mmol/L (21.0-32.0); EST CRCL DRUG DOSING (CG) 86.22 mL/min
[2025-01-04] MEDS: SACUBITRIL VALSARTAN PO SCH (19:07)
[2025-01-04] MEDS: Pravastatin 40 MG Tab PO SCH (21:01)
[2025-01-04] MEDS: Metoprolol Succinate 50 MG Tab.ER PO SCH (21:01)
[2025-01-04] MEDS: Ezetimibe 10 MG Tab PO SCH (21:01)
[2025-01-05] MEDS: Spironolactone 25 MG Tab PO SCH (09:21)
[2025-01-05] MEDS: Empagliflozin 10 MG Tab PO SCH (09:22)
[2025-01-05] MEDS: Allopurinol 100 MG Tab PO SCH (09:22)
[2025-01-05] MEDS: Aspirin 81 MG Tab.EC PO SCH (09:22)
[2025-01-05 11:28] VITALS: PULSE 62
[2025-01-05 11:42] VITALS: BP 114/76
== END 2025-01-05 11:42 | disposition home or self-care (01) ==
LOC: MW.ED 15:25 → MW.MS 20:12
PROVIDERS: ADMIT Family Medicine; ATTEND Family Medicine
DX: K56.609 Unspecified intestinal obstruction, unspecified as to partial versus complete obstruction (principal); N20.2 Calculus of kidney with calculus of ureter; C85.10 Unspecified B-cell lymphoma, unspecified site; I11.0 Hypertensive heart disease with heart failure; I50.9 Heart failure, unspecified; E78.00 Pure hypercholesterolemia, unspecified; K21.9 Gastro-esophageal reflux disease without esophagitis; Z79.82 Long term (current) use of aspirin; Z79.899 Other long term (current) drug therapy; Z88.0 Allergy status to penicillin
CPT/HCPCS: 36415; 43752; 71045; 74018; 74177; 80048; 80053; 81001; 82947; 83036; 83690; 83735; 85025; 85027; 87428; 96361; 96374; 96375; 96376; 99285; A9270; G0378; J2405; J2470; J7030; Q9967; 99284

== ENCOUNTER 2025-03-26 10:25 | Observation (INO) | payer BC ==
[2025-03-26] MEDS ORDERED: Sodium Chloride 0.9% 2.5 ML Syringe FLUSH PRN ×2 (10:29→15:55)
[2025-03-26] MEDS ORDERED: Sodium Chloride 0.9% 10 ML Syringe FLUSH PRN ×2 (10:29→15:55)
[2025-03-26 11:47] LABS: BASOPHILS ABSOLUTE AUTO 0.02 K/uL (0.00-0.20); BASOPHILS PERCENT AUTO 0.2 % (0.0-1.0); EOSINOPHILS ABSOLUTE AUTO 0.17 K/uL (0.00-0.45); EOSINOPHILS PERCENT AUTO 1.8 % (0.0-6.0); HEMATOCRIT 52.3 % (42.0-52.0); IMMATURE GRAN ABSOLUTE AUTO 0.05 K/uL (0.00-0.05); IMMATURE GRAN PERCENT AUTO 0.5 % (0.0-0.4); LYMPHOCYTES ABSOLUTE AUTO 1.74 K/uL (1.00-4.80); LYMPHOCYTES PERCENT AUTO 18.2 % (24.0-44.0); MEAN CORPUSCULAR HEMOGLOBIN 29.7 pg (28.0-32.0); MEAN CORPUSCULAR HGB CONC 34.4 g/dL (32.0-36.0); MEAN CORPUSCULAR VOLUME 86.2 fL (83.0-99.0); MEAN PLATELET VOLUME 10.5 fL (9.4-12.4); MONOCYTES ABSOLUTE AUTO 0.67 K/uL (0.00-0.80); NEUTROPHILS ABSOLUTE AUTO 6.93 K/uL (1.80-7.70); NEUTROPHILS PERCENT AUTO 72.3 % (41.0-71.0); PLATELET COUNT,PLT 228 K/uL (150-400); RED BLOOD CELL COUNT 6.07 M/uL (4.52-5.90); WHITE BLOOD CELL COUNT,WBC 9.58 K/uL (3.9-11.3)
[2025-03-26 12:07] LABS: A/G RATIO 1.1 (0.9-1.6); ALBUMIN 3.8 g/dL (3.4-5.0); BILIRUBIN TOTAL 1.1 mg/dL (0.2-1.0); CALCIUM 9.3 mg/dL (8.5-10.1); CARBON DIOXIDE,CO2 23.6 mmol/L (21.0-32.0); CREATININE 0.8 mg/dL (0.8-1.3); EST CRCL DRUG DOSING (CG) 107.78 mL/min; POTASSIUM,K 4.1 mmol/L (3.5-5.1); PROTEIN TOTAL,TP 7.3 g/dL (6.4-8.2)
[2025-03-26] MEDS: Sodium Chloride 0.9% 1,000 ML IV ONE (12:14)
[2025-03-26] MEDS: Ketorolac 30 MG/ML SDV IVPUSH ONE (12:14)
[2025-03-26] MEDS: Ondansetron 4 MG/2 ML SDV IVPUSH ONE (12:14)
[2025-03-26 13:11] LABS: APPEARANCE,URINE CLEAR; BILIRUBIN,URINE NEGATIVE (NEGATIVE); COLOR,URINE YELLOW; GLUCOSE,URINE >=1000 mg/dL (NEGATIVE); KETONES,URINE NEGATIVE (NEGATIVE); LEUKOCYTE ESTERASE,URINE NEGATIVE (NEGATIVE); NITRITE,URINE NEGATIVE (NEGATIVE); OCCULT BLOOD,URINE TRACE-INTACT (NEGATIVE); PH,URINE 5.5 (5.0-8.0); PROTEIN,URINE NEGATIVE (NEGATIVE); UROBILINOGEN,URINE 0.2 EU/dL (<2.0)
[2025-03-26] MEDS: Iopamidol 755 MG/ML 500 ML Multipack Bottle IVPUSH STA (13:12)
[2025-03-26 13:39] LABS: BACTERIA,URINE RARE (NEGATIVE); EPITHELIAL CELLS,URINE RARE (NONE-FEW); RBC,URINE 0-1 (0-2/HPF); WBC,URINE 0-1 (0-5/HPF)
[2025-03-26] MEDS ORDERED: Ondansetron 4 MG/2 ML SDV IVPUSH PRN (15:55)
[2025-03-26] MEDS ORDERED: Morphine 2 MG/ML SYRINGE IVPUSH PRN (15:55)
[2025-03-26] MEDS ORDERED: Naloxone 0.4 MG/ML SDV IVPUSH PRN (16:00)
[2025-03-26] MEDS: Sodium Chloride 0.9% 1,000 ML IV SCH (16:30)
[2025-03-26] MEDS: Pantoprazole 40 MG Tab.CR PO SCH (18:40)
[2025-03-26] MEDS: Pravastatin 40 MG Tab PO SCH (20:16)
[2025-03-26] MEDS: Ezetimibe 10 MG Tab PO SCH (20:16)
[2025-03-26] MEDS: Tamsulosin 0.4 MG Cap.ER PO SCH (20:16)
[2025-03-26] MEDS: SACUBITRIL PO SCH (20:17)
[2025-03-26] MEDS: Latanoprost 0.005% Ophth Soln 2.5 ML Bottle EYEBOTH SCH (20:17)
[2025-03-26] MEDS: VALSARTAN PO SCH (20:17)
[2025-03-27 05:39] LABS: BASOPHILS ABSOLUTE AUTO 0.02 K/uL (0.00-0.20); BASOPHILS PERCENT AUTO 0.5 % (0.0-1.0); EOSINOPHILS ABSOLUTE AUTO 0.14 K/uL (0.00-0.45); EOSINOPHILS PERCENT AUTO 3.2 % (0.0-6.0); HEMATOCRIT 47.1 % (42.0-52.0); HEMOGLOBIN 15.6 g/dL (14.0-18.0); IMMATURE GRAN ABSOLUTE AUTO 0.01 K/uL (0.00-0.05); IMMATURE GRAN PERCENT AUTO 0.2 % (0.0-0.4); LYMPHOCYTES PERCENT AUTO 27.6 % (24.0-44.0); MEAN CORPUSCULAR HEMOGLOBIN 29.5 pg (28.0-32.0); MEAN CORPUSCULAR HGB CONC 33.1 g/dL (32.0-36.0); MEAN CORPUSCULAR VOLUME 89.2 fL (83.0-99.0); MEAN PLATELET VOLUME 10.5 fL (9.4-12.4); MONOCYTES ABSOLUTE AUTO 0.29 K/uL (0.00-0.80); MONOCYTES PERCENT AUTO 6.7 % (0.0-8.0); NEUTROPHILS ABSOLUTE AUTO 2.68 K/uL (1.80-7.70); NEUTROPHILS PERCENT AUTO 61.8 % (41.0-71.0); PLATELET COUNT,PLT 168 K/uL (150-400); RED BLOOD CELL COUNT 5.28 M/uL (4.52-5.90); WHITE BLOOD CELL COUNT,WBC 4.34 K/uL (3.9-11.3)
[2025-03-27 06:06] LABS: CALCIUM 8.2 mg/dL (8.5-10.1); CREATININE 0.9 mg/dL (0.8-1.3); EST CRCL DRUG DOSING (CG) 95.8 mL/min; MAGNESIUM 1.9 mg/dL (1.8-2.4); POTASSIUM,K 4.1 mmol/L (3.5-5.1)
[2025-03-27] MEDS: Empagliflozin 10 MG Tab PO SCH (08:12)
[2025-03-27] MEDS: Allopurinol 100 MG Tab PO SCH (08:12)
[2025-03-27] MEDS: Aspirin 81 MG Tab.EC PO SCH (08:13)
[2025-03-27 14:32] VITALS: BP 102/62; PULSE 82
== END 2025-03-27 14:39 | disposition home or self-care (01) ==
LOC: MW.ED 10:25 → MW.MS 15:03
PROVIDERS: ADMIT Internal Medicine; ATTEND Internal Medicine
DX: K52.9 Noninfective gastroenteritis and colitis, unspecified (principal); E86.0 Dehydration; I11.0 Hypertensive heart disease with heart failure; I50.9 Heart failure, unspecified; K21.9 Gastro-esophageal reflux disease without esophagitis; E78.00 Pure hypercholesterolemia, unspecified; Z79.899 Other long term (current) drug therapy
CPT/HCPCS: 36415; 74177; 80048; 80053; 81001; 83605; 83690; 83735; 83880; 85025; A9270; J1642; J1885; J2405; J7030; Q9967; 99285

== ENCOUNTER 2025-07-24 14:07 | Emergency (ER) | payer BC ==
[2025-07-24] MEDS ORDERED: Sodium Chloride 0.9% 2.5 ML Syringe FLUSH PRN (14:16)
[2025-07-24] MEDS ORDERED: Sodium Chloride 0.9% 10 ML Syringe FLUSH PRN (14:16)
[2025-07-24] MEDS: Ondansetron 4 MG/2 ML SDV IVPUSH ONE (15:01)
[2025-07-24 15:11] LABS: BASOPHILS ABSOLUTE AUTO 0.02 K/uL (0.00-0.20); BASOPHILS PERCENT AUTO 0.2 % (0.0-1.0); EOSINOPHILS ABSOLUTE AUTO 0.08 K/uL (0.00-0.45); EOSINOPHILS PERCENT AUTO 1.0 % (0.0-6.0); IMMATURE GRAN ABSOLUTE AUTO 0.03 K/uL (0.00-0.05); IMMATURE GRAN PERCENT AUTO 0.4 % (0.0-0.4); LYMPHOCYTES ABSOLUTE AUTO 1.25 K/uL (1.00-4.80); LYMPHOCYTES PERCENT AUTO 14.8 % (24.0-44.0); MEAN PLATELET VOLUME 10.3 fL (9.4-12.4); MONOCYTES ABSOLUTE AUTO 0.57 K/uL (0.00-0.80); MONOCYTES PERCENT AUTO 6.8 % (0.0-8.0); NEUTROPHILS ABSOLUTE AUTO 6.47 K/uL (1.80-7.70); NEUTROPHILS PERCENT AUTO 76.8 % (41.0-71.0); NRBC ABSOLUTE 0.00 K/uL (0.00-0.02); NRBC PERCENT 0.0 /100WBC (0.0-0.2); PLATELET COUNT,PLT 203 K/uL (150-400); RED BLOOD CELL COUNT 5.75 M/uL (4.52-5.90); WHITE BLOOD CELL COUNT,WBC 8.42 K/uL (3.9-11.3)
[2025-07-24 15:15] LABS: APPEARANCE,URINE CLEAR; GLUCOSE,URINE >=1000 mg/dL (NEGATIVE); OCCULT BLOOD,URINE TRACE-INTACT (NEGATIVE)
[2025-07-24 15:23] LABS: EPITHELIAL CELLS,URINE RARE (NONE-FEW)
[2025-07-24 15:34] LABS: A/G RATIO 1.2 (0.9-1.6); ALANINE AMINOTRANSFERASE,ALT 28 IU/L (14-63); ASPARTATE AMNIOTRANSFERASE,AST 21 IU/L (15-37); BILIRUBIN TOTAL 1.4 mg/dL (0.2-1.0); BLOOD UREA NITROGEN,BUN 18 mg/dL (7.0-18.0); CARBON DIOXIDE,CO2 28.0 mmol/L (21.0-32.0); CHLORIDE,CL 104 mmol/L (98-107); CREATININE 1.1 mg/dL (0.8-1.3); GLUCOSE RANDOM 138 mg/dL (74-106); POTASSIUM,K 4.0 mmol/L (3.5-5.1); PROTEIN TOTAL,TP 7.1 g/dL (6.4-8.2); SODIUM,NA 141 mmol/L (136-148)
[2025-07-24 15:38] LABS: ESTIMATED GFR 77 mL/min (>60)
[2025-07-24] MEDS: Iopamidol 755 MG/ML 500 ML Multipack Bottle IVPUSH STA (17:01)
[2025-07-24] MEDS: Promethazine 25 MG/ML SDV IM ONE (19:04)
[2025-07-24 19:52] VITALS: BP 110/58; PULSE 56
== END 2025-07-24 19:53 | disposition home or self-care (01) ==
LOC: MW.ED 14:07
DX: R11.2 Nausea with vomiting, unspecified (principal); I11.0 Hypertensive heart disease with heart failure; I50.9 Heart failure, unspecified; E78.00 Pure hypercholesterolemia, unspecified; K21.9 Gastro-esophageal reflux disease without esophagitis; Z88.0 Allergy status to penicillin; Z88.8 Allergy status to other drugs, medicaments and biological substances; Z79.899 Other long term (current) drug therapy; Z79.82 Long term (current) use of aspirin
CPT/HCPCS: 36415; 74177; 80053; 81001; 83690; 85025; 96361; 96372; 96374; 99284; J1642; J2405; J2550; J7040; Q9967

== ENCOUNTER 2025-09-21 09:50 | Inpatient (IN) | payer BC ==
[2025-09-21] MEDS ORDERED: Sodium Chloride 0.9% 10 ML Syringe FLUSH PRN ×2 (10:11→14:07)
[2025-09-21] MEDS ORDERED: Sodium Chloride 0.9% 2.5 ML Syringe FLUSH PRN ×2 (10:11→14:07)
[2025-09-21 11:02] LABS: APPEARANCE,URINE CLOUDY; GLUCOSE,URINE >=1000 mg/dL (NEGATIVE); OCCULT BLOOD,URINE LARGE (NEGATIVE)
[2025-09-21 11:02] LABS: BASOPHILS ABSOLUTE AUTO 0.06 K/uL (0.00-0.20); BASOPHILS PERCENT AUTO 0.5 % (0.0-1.0); EOSINOPHILS ABSOLUTE AUTO 0.35 K/uL (0.00-0.45); EOSINOPHILS PERCENT AUTO 3.0 % (0.0-6.0); IMMATURE GRAN ABSOLUTE AUTO 0.04 K/uL (0.00-0.05); IMMATURE GRAN PERCENT AUTO 0.3 % (0.0-0.4); LYMPHOCYTES ABSOLUTE AUTO 1.11 K/uL (1.00-4.80); LYMPHOCYTES PERCENT AUTO 9.7 % (24.0-44.0); MEAN PLATELET VOLUME 10.5 fL (9.4-12.4); MONOCYTES ABSOLUTE AUTO 0.88 K/uL (0.00-0.80); MONOCYTES PERCENT AUTO 7.7 % (0.0-8.0); NEUTROPHILS ABSOLUTE AUTO 9.06 K/uL (1.80-7.70); NEUTROPHILS PERCENT AUTO 78.8 % (41.0-71.0); NRBC ABSOLUTE 0.00 K/uL (0.00-0.02); NRBC PERCENT 0.0 /100WBC (0.0-0.2); PLATELET COUNT,PLT 189 K/uL (150-400); RED BLOOD CELL COUNT 3.92 M/uL (4.52-5.90); WHITE BLOOD CELL COUNT,WBC 11.50 K/uL (3.9-11.3)
[2025-09-21] MEDS: cefTRIAXone 2 GM in Water For Injection, Sterile 20 ML IVPUSH ONE (11:25)
[2025-09-21 11:28] LABS: A/G RATIO 1.0 (0.9-1.6); ALANINE AMINOTRANSFERASE,ALT 17.0 IU/L (14-63); ASPARTATE AMNIOTRANSFERASE,AST 17.0 IU/L (15-37); BILIRUBIN TOTAL 1.2 mg/dL (0.2-1.0); BLOOD UREA NITROGEN,BUN 25.0 mg/dL (7.0-18.0); CARBON DIOXIDE,CO2 26.3 mmol/L (21.0-32.0); CHLORIDE,CL 103.0 mmol/L (98-107); CREATININE 1.2 mg/dL (0.8-1.3); EST CRCL DRUG DOSING (CG) 70.95 mL/min; GLUCOSE RANDOM 108.0 mg/dL (74-106); POTASSIUM,K 3.9 mmol/L (3.5-5.1); PROTEIN TOTAL,TP 6.4 g/dL (6.4-8.2); SODIUM,NA 136.0 mmol/L (136-148)
[2025-09-21 11:30] LABS: ESTIMATED GFR 69.0 mL/min (>60)
[2025-09-21 11:32] LABS: LACTIC ACID 0.6 mmol/L (0.4-2.0)
[2025-09-21] MEDS: Iopamidol 755 Mg/ML 100 ML Bottle IVPUSH ONE (12:04)
[2025-09-21] MEDS: Ciprofloxacin in D5W 400 MG in Premix Bag 1 BAG IV SCH (13:45)
[2025-09-21] MEDS ORDERED: Sennosides/Docusate Sodium 50-8.6 MG Tab PO PRN (14:08)
[2025-09-22 06:20] LABS: BASOPHILS ABSOLUTE AUTO 0.05 K/uL (0.00-0.20); BASOPHILS PERCENT AUTO 0.5 % (0.0-1.0); EOSINOPHILS ABSOLUTE AUTO 0.46 K/uL (0.00-0.45); EOSINOPHILS PERCENT AUTO 4.3 % (0.0-6.0); IMMATURE GRAN ABSOLUTE AUTO 0.03 K/uL (0.00-0.05); IMMATURE GRAN PERCENT AUTO 0.3 % (0.0-0.4); LYMPHOCYTES ABSOLUTE AUTO 1.06 K/uL (1.00-4.80); LYMPHOCYTES PERCENT AUTO 9.8 % (24.0-44.0); MEAN PLATELET VOLUME 10.5 fL (9.4-12.4); MONOCYTES ABSOLUTE AUTO 0.88 K/uL (0.00-0.80); MONOCYTES PERCENT AUTO 8.1 % (0.0-8.0); NEUTROPHILS ABSOLUTE AUTO 8.33 K/uL (1.80-7.70); NEUTROPHILS PERCENT AUTO 77.0 % (41.0-71.0); NRBC ABSOLUTE 0.00 K/uL (0.00-0.02); NRBC PERCENT 0.0 /100WBC (0.0-0.2); PLATELET COUNT,PLT 167 K/uL (150-400); RED BLOOD CELL COUNT 3.90 M/uL (4.52-5.90); WHITE BLOOD CELL COUNT,WBC 10.81 K/uL (3.9-11.3)
[2025-09-22 06:50] LABS: A/G RATIO 0.8 (0.9-1.6); ALANINE AMINOTRANSFERASE,ALT 15.0 IU/L (14-63); ASPARTATE AMNIOTRANSFERASE,AST 14.0 IU/L (15-37); BILIRUBIN TOTAL 1.1 mg/dL (0.2-1.0); BLOOD UREA NITROGEN,BUN 21.0 mg/dL (7.0-18.0); CARBON DIOXIDE,CO2 24.8 mmol/L (21.0-32.0); CHLORIDE,CL 108.0 mmol/L (98-107); CREATININE 0.9 mg/dL (0.8-1.3); EST CRCL DRUG DOSING (CG) 94.6 mL/min; GLUCOSE RANDOM 94.0 mg/dL (74-106); PHOSPHORUS 2.7 mg/dL (2.6-4.7); POTASSIUM,K 4.0 mmol/L (3.5-5.1); PROTEIN TOTAL,TP 6.0 g/dL (6.4-8.2); SODIUM,NA 140.0 mmol/L (136-148)
[2025-09-22 06:56] LABS: ESTIMATED GFR 97.0 mL/min (>60)
[2025-09-22] MEDS: Fluticasone NASAL Spray 16 GM Bottle NASBOTH SCH (08:29)
[2025-09-22] MEDS: Magnesium Hydroxide 400 MG/5 ML Susp 30 ML Cup PO SCH (22:38)
[2025-09-23 06:40] LABS: BASOPHILS ABSOLUTE AUTO 0.03 K/uL (0.00-0.20); BASOPHILS PERCENT AUTO 0.5 % (0.0-1.0); EOSINOPHILS ABSOLUTE AUTO 0.25 K/uL (0.00-0.45); EOSINOPHILS PERCENT AUTO 4.3 % (0.0-6.0); IMMATURE GRAN ABSOLUTE AUTO 0.01 K/uL (0.00-0.05); IMMATURE GRAN PERCENT AUTO 0.2 % (0.0-0.4); LYMPHOCYTES ABSOLUTE AUTO 0.86 K/uL (1.00-4.80); LYMPHOCYTES PERCENT AUTO 14.9 % (24.0-44.0); MEAN PLATELET VOLUME 10.9 fL (9.4-12.4); MONOCYTES ABSOLUTE AUTO 0.52 K/uL (0.00-0.80); MONOCYTES PERCENT AUTO 9.0 % (0.0-8.0); NEUTROPHILS ABSOLUTE AUTO 4.12 K/uL (1.80-7.70); NEUTROPHILS PERCENT AUTO 71.1 % (41.0-71.0); NRBC ABSOLUTE 0.00 K/uL (0.00-0.02); NRBC PERCENT 0.0 /100WBC (0.0-0.2); PLATELET COUNT,PLT 175 K/uL (150-400); RED BLOOD CELL COUNT 4.08 M/uL (4.52-5.90); WHITE BLOOD CELL COUNT,WBC 5.79 K/uL (3.9-11.3)
[2025-09-23 07:09] LABS: A/G RATIO 0.8 (0.9-1.6); ALANINE AMINOTRANSFERASE,ALT 13.0 IU/L (14-63); ASPARTATE AMNIOTRANSFERASE,AST 14.0 IU/L (15-37); BILIRUBIN TOTAL 0.7 mg/dL (0.2-1.0); BLOOD UREA NITROGEN,BUN 19.0 mg/dL (7.0-18.0); CARBON DIOXIDE,CO2 27.6 mmol/L (21.0-32.0); CHLORIDE,CL 108.0 mmol/L (98-107); CREATININE 1.0 mg/dL (0.8-1.3); EST CRCL DRUG DOSING (CG) 85.14 mL/min; GLUCOSE RANDOM 111.0 mg/dL (74-106); POTASSIUM,K 3.9 mmol/L (3.5-5.1); PROTEIN TOTAL,TP 6.2 g/dL (6.4-8.2); SODIUM,NA 142.0 mmol/L (136-148)
[2025-09-23 07:23] LABS: ESTIMATED GFR 86.0 mL/min (>60)
[2025-09-23] MEDS: Sennosides/Docusate Sodium 50-8.6 MG Tab PO ONE (11:39)
[2025-09-23 12:15] VITALS: BP 118/68; PULSE 80
== END 2025-09-23 15:07 | disposition home or self-care (01) | DRG 466 ==
LOC: MW.ED 09:50 → MW.MS 13:17
PROVIDERS: ADMIT Family Medicine; ATTEND Family Medicine
DX: N99.89 Other postprocedural complications and disorders of genitourinary system (principal); N41.9 Inflammatory disease of prostate, unspecified; J98.2 Interstitial emphysema; I50.9 Heart failure, unspecified; I11.0 Hypertensive heart disease with heart failure; N30.90 Cystitis, unspecified without hematuria; I49.3 Ventricular premature depolarization; I95.9 Hypotension, unspecified; E78.00 Pure hypercholesterolemia, unspecified; C85.1A Unspecified B-cell lymphoma, in remission; G47.30 Sleep apnea, unspecified; D72.829 Elevated white blood cell count, unspecified; Y83.8 Other surgical procedures as the cause of abnormal reaction of the patient, or of later complication, without mention of misadventure at the time of the procedure; D64.9 Anemia, unspecified; J30.2 Other seasonal allergic rhinitis; K21.9 Gastro-esophageal reflux disease without esophagitis; M19.90 Unspecified osteoarthritis, unspecified site; E66.9 Obesity, unspecified; Z96.651 Presence of right artificial knee joint; K59.09 Other constipation; I25.10 Atherosclerotic heart disease of native coronary artery without angina pectoris; Z95.810 Presence of automatic (implantable) cardiac defibrillator; Z90.79 Acquired absence of other genital organ(s); Z88.1 Allergy status to other antibiotic agents; Z86.711 Personal history of pulmonary embolism; Z86.0100 Personal history of colon polyps, unspecified; Z98.890 Other specified postprocedural states; Z68.36 Body mass index [BMI] 36.0-36.9, adult; Z95.828 Presence of other vascular implants and grafts; Z88.8 Allergy status to other drugs, medicaments and biological substances; Z79.899 Other long term (current) drug therapy; Z79.82 Long term (current) use of aspirin
CPT/HCPCS: 36415; 71045; 71045-26; 74019; 74019-26; 74177; 74177-26; 80053; 81001; 83605; 83690; 83735; 83880; 84100; 85025; 87040; 87086; 87088; 87186; 93010; 96360; 96361; 99222; 99232; 99239; 99285; 99285-25; A4216; A9270-GY; J0696; J0744; J1642; J1650; J7030; J7040; Q9967